=== PATIENT | female | born 1955 | race Caucasian/White ===

== ENCOUNTER → 2016-03-29 | Day surgery (SDC) | payer MEDICARE ==
[~2016-03-29] MED LIST: LIDOCAINE 2% JELLY 5 ML TUBE ONE
== END ==
LOC: END 07:25
PROVIDERS: ATTEND Surgery
PROC: 4A0B7BZ Measurement of Gastrointestinal Pressure, Via Natural or Artificial Opening (ICD-10-PCS; principal; 2016-03-29)
DX: K21.9 Gastro-esophageal reflux disease without esophagitis (principal)
CPT/HCPCS: 91010

== ENCOUNTER → 2017-03-18 | Outpatient (CLI) | payer MEDICARE ==
--- NOTE | 2017-03-18 16:12 | RADIOLOGY REPORT (SQ) ---
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 TECHNIQUE: CT scan of the chest performed using helical scanning technique with dynamic intravenous contrast injection. Images reviewed with lung, soft tissue and bone windows. Reconstructed coronal and sagittal MPR images reviewed. All images stored on PACS. All CT scanners at this facility use dose modulation, iterative reconstruction, and/or weight based d osing when appropriate to reduce radiation dose to as low as reasonably achievable (ALARA). [facility]: Dose Right [facility]: CareDose [facility]: Dose Right [facility]: Teradose 4D [facility]: [employer] CONTRAST TYPE AND DOSE: See separate report. RENAL FUNCTION: Creatinine 0.9 RADIATION DOSE: . LIMITATIONS: None. FINDINGS: LUNGS AND PLEURA: Centrilobular emphysema. 4 mm nodule in the right upper lobe image 58. Smaller nodule in the left lower lobe image 98. Dependent subsegmental mosaic attenuation in both l ower lobes. No effusions. HILAR AND MEDIASTINAL STRUCTURES: No identified masses or abnormal nodes. HEART AND VASCULAR STRUCTURES: No aneurysm or dissection. No central pulmonary emboli. No pericardi al effusion. HARDWARE: None in the chest. UPPER ABDOMEN: See separate report of the CT of the abdomen. THYROID AND OTHER SOFT TISSUES: No masses. No adenopathy. BONES: No significant finding. OTHER: No other significant finding. IMPRESSION: Less than 6 mm pulmonary nodules. TECHNICAL DOCUMENTATION: JOB ID: [id number] Quality ID # 436: Final reports with documentation of one or more dose reduction techniques (e.g., Au tomated exposure control, adjustment of the mA and/or kV according to patient size, use of iterative reconstruction technique) 2010 [employer]- All Rights Reserved
--- NOTE | 2017-03-18 16:22 | RADIOLOGY REPORT (SQ) ---
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 2 PELVIC AND PERINEAL PAIN COMPARISON: None. TECHNIQUE: CT scan of the abdomen and pelvis performed using helical scanning technique with dynamic intravenous contrast injection. No oral contrast. Images reviewed with lung, soft tissue, and bone windows. Reconstructed coronal and sagittal MPR images reviewed. Delayed images for evaluation of the urinary system also acquired. All images stored on PACS. All CT scanners at this facility use dose modulation, iterative reconstruction, and/or weight based d osing when appropriate to reduce radiation dose to as low as reasonably achievable (ALARA). [facility]: Dose Right [facility]: CareDose [facility]: Dose Right [facility]: Teradose 4D [facility]: [employer] CONTRAST TYPE AND DOSE: contrast/concentration: Isovue 370.00 mg/ml; Total Contrast Delivered: 52.0 ml; Total Saline Delivered: 65.0 ml RENAL FUNCTION: Creatinine 0.9 RADIATION DOSE: CT Rad equipment meets quality standard of care and radiation dose reduction techniq ues were employed. CTDIvol: 4.4 - 4.5 mGy. DLP: 819 mGy-cm.. LIMITATIONS: Artifact from clips GE junction. FINDINGS: LOWER CHEST: See separate report of the CT of the chest. LIVER: Normal size. No masses. No dilated ducts. SPLEEN: Normal size. No focal lesions. PANCREAS: No masses. No significant calcifications. No adjacent inflammation or peripancreatic fluid collections. Pancreatic duct not dilated. GALLBLADDER: No identified stones by CT criteria. No inflammatory changes to suggest cholecystitis. ADRENAL GLANDS: No significant masses or asymmetry. RIGHT KIDNEY AND URETER: No solid masses. No significant calcifications. No hydronephrosis or hyd roureter. LEFT KIDNEY AND URETER: No solid masses. No significant calcifications. No hydronephrosis or hydr oureter. AORTA AND VESSELS: No aneurysm. No dissection. Renal arteries, SMA, celiac without stenosis. RETROPERITONEUM: No retroperitoneal adenopathy, hemorrhage or masses. BOWEL AND PERITONEAL CAVITY: No masses or inflammatory changes. No free fluid or peritoneal masses. APPENDIX: Not visualized. PELVIS: Trace of free fluid. No adenopathy. ABDOMINAL WALL: No masses. No hernias. BONES: No acute findings. OTHER: No other significant finding. IMPRESSION: No evidence of metastatic disease. TECHNICAL DOCUMENTATION: JOB ID: [id number] Quality ID # 436: Final reports with documentation of one or more dose reduction techniques (e.g., Au tomated exposure control, adjustment of the mA and/or kV according to patient size, use of iterative reconstruction technique) 2010 [employer]- All Rights Reserved
== END ==
LOC: RAD 14:56
PROVIDERS: ATTEND Internal Medicine
DX: C10.9 Malignant neoplasm of oropharynx, unspecified (principal); R10.2 Pelvic and perineal pain; C76.0 Malignant neoplasm of head, face and neck
CPT/HCPCS: 71260; 74177; 82565

== ENCOUNTER → 2017-03-26 | Outpatient (CLI) | payer MEDICARE ==
--- NOTE | 2017-03-26 16:50 | RADIOLOGY REPORT (SQ) ---
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 TECHNIQUE: Post IV contrasted scanning from skull base through lung apices with review of bone, soft tissue and lung windows. Reconstructed coronal and sagittal MPR images reviewed. All images stored on PACS. All CT scanners at this facility use dose modulation, iterative reconstruction, and/or weight based d osing when appropriate to reduce radiation dose to as low as reasonably achievable (ALARA). [facility]: Dose Right [facility]: CareDose [facility]: Dose Right [facility]: Teradose 4D [facility]: [email or web address] CONTRAST TYPE AND DOSE: contrast/concentration: Isovue 370.00 mg/ml; Total Contrast Delivered: 75.0 ml; Total Saline Delivered: 55.0 ml RENAL FUNCTION: Creatinine 0.9 RADIATION DOSE: 12.6 mGy . LIMITATIONS: None. FINDINGS: SKULL BASE: Intact. Inferior brain parenchyma in the field of view, [place] unre markable. MAJOR SALIVARY GLANDS: No solid or cystic masses. No inflammatory changes. LYMPHADENOPATHY: No adenopathy. MUCOSAL MASSES OR ASYMMETRY: No mucosal masses or asymmetry LARYNX/CORDS: There is diffuse thickening of the epiglottis and aryepiglottic folds along the supragl ottic larynx best shown on axial images 46-53, and sagittal images 39-43.. VASCULAR STRUCTURES: The major vessels are patent.Less than 50% stenosis bilateral proximal internal carotids due to calcific placque at the bifurcations LUNG APICES: Clear. Obstructive lung disease at the apices BONES: Degenerative disc disease at C5-6 with mild central canal stenosis and high-grade bilateral fo raminal narrowing THYROID: Normal size. No masses. PARANASAL SINUSES: Opacified right frontal sinus with mucoperiosteal thickening, question chronic rig ht frontal sinus inflammatory changes. OTHER: No other significant finding. IMPRESSION: Probable post radiation therapy change in the supraglottic laryngeal structures. TECHNICAL DOCUMENTATION: JOB ID: [id number] Quality ID # 436: Final reports with documentation of one or more dose reduction techniques (e.g., Au tomated exposure control, adjustment of the mA and/or kV according to patient size, use of iterative reconstruction technique) 2010 [employer]- All Rights Reserved
== END ==
LOC: RAD 13:25
PROVIDERS: ATTEND Internal Medicine
DX: C76.0 Malignant neoplasm of head, face and neck (principal)
CPT/HCPCS: 70491

== ENCOUNTER → 2017-04-02 | Outpatient (CLI) | payer MEDICARE ==
--- NOTE | 2017-04-03 16:45 | RADIOLOGY REPORT (SQ) ---
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 TECHNIQUE: Blood glucose level was verified. Above dose of FDG was injected intravenously. 2-D seg mented attenuation correction images were obtained from the base of the skull to the midthighs. Nonc ontrast CT images were obtained for attenuation correction and fusion with emission images. CT image s were performed without oral or intravenous contrast and are not sensitive for parenchymal lesions. A series of overlapping emission PET images were obtained. Images reviewed and manipulated at [facility] work station by the radiologist. Images stored on PACS. LIMITATIONS: None. FINDINGS: HEAD AND NECK: Diffuse abnormal markedly increased uptake is present throughout the tongue base left greater than right, with SUV of 15.8. Thickening of the mucosal surface of the tongue bas e extends into the vallecula and into the base of the epiglottis. In the supraglottic larynx along the right piriform recess region, bandlike increased uptake is prese nt worrisome for mucosal neoplasm with SUV of 4.9. No metabolically active cervical lymph nodes. No airway compromise. CHEST: A right axillary 1.4 x 0.9 cm lymph node is present on axial image 80, with SUV of 3.6. No left axillary adenopathy. No mediastinal adenopathy. There are multifocal infiltrates involving the posterior right upper lobe, superior segment right low er lobe, and superior segment left lower lobe with SUV ranging from 1.6 to 2.1. Given the laryngeal and tongue base findings, this could represent aspiration pneumonia. Less than 4 mm probable noncalcified granulomas are present in the right lung near the minor fissure image 94, and in the left posterior costophrenic sulcus image 113. These are too small to characteri ze accurately with PET-CT. ABDOMEN AND PELVIS: No areas of abnormal metabolic activity in the abdomen or pelvis. Expected physi ologic activity is present in the genitourinary system and bowel. PROXIMAL LOWER EXTREMITIES: No areas of abnormal metabolic activity in the soft tissues of the lower extremities. BONES: No abnormal metabolic activity in the visualized skeleton. ADDITIONAL CT FINDINGS: Obstructive lung disease. Radiopaque metallic prosthesis at the GE junction with adjacent surgical anisa from reflux surgery. Opacified right frontal sinus without increased metabolic activity. OTHER: Liver background activity 1.9 SUV. 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 Abnormal increased uptake along the right piriform recess region worrisome for tumor. Hypermetabolic small right axillary lymph node Multifocal pulmonary infiltrates, given tongue base findings worrisome for aspiration pneumonia. TECHNICAL DOCUMENTATION: JOB ID: [id number] [employer]- All Rights Reserved
== END ==
LOC: RAD 16:31
PROVIDERS: ATTEND Internal Medicine
DX: C10.9 Malignant neoplasm of oropharynx, unspecified (principal)
CPT/HCPCS: 78815; A9552

== ENCOUNTER → 2017-04-10 | Day surgery (SDC) | payer MEDICARE ==
[~2017-04-10] MED LIST changes: +LIDOCAINE 1% INJ-PF (10 MG/ML) 30 ML SDV ONE; -LIDOCAINE 2% JELLY 5 ML TUBE ONE
--- NOTE | 2017-04-10 11:00 | RADIOLOGY REPORT (SQ) ---
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 The patient was scanned and the lymph node of interest in the right axilla was localized. This corre lates with the area of concern on prior imaging studies. This area was targeted for ultrasound-guided core biopsy. After sterile skin prep and 3.5 mL local lidocaine 1% for skin and deep tissue anesthesia, a 14 gauge coaxial core biopsy needle was used to obtain several cores of tissue from the lesion. Under ultras ound guidance, a ribbon clip was placed in the areas sampled. There were no immediate post-procedure complications. Samples were given to Narcisa from cytology. Pathology is pending at the time of dictation LIMITATIONS: None. FINDINGS: Ultrasound guided right axillary lymph node biopsy as described above. Pathology is pending IMPRESSION: ULTRASOUND-GUIDED CORE BIOPSY OF THE RIGHT AXILLARY LYMPH NODE WITH LOCAL ANESTHESIA. P OST BIOPSY CLIP PLACEMENT COMMENT: COMMUNICATION: Results are pending Patient medication list reviewed: Yes- Quality ID# 130:Eligible professional attests to documenting i n the medical record they obtained, updated, or reviewed the patient's current medications. TECHNICAL DOCUMENTATION: JOB ID: [id number] [employer]- All Rights Reserved
== END ==
LOC: RAD 08:57
PROVIDERS: ATTEND Internal Medicine
PROC: 07B53ZX Excision of Right Axillary Lymphatic, Percutaneous Approach, Diagnostic (ICD-10-PCS; principal; 2017-04-10)
DX: C10.9 Malignant neoplasm of oropharynx, unspecified (principal)
CPT/HCPCS: 88185 ×15; 88184; 88233; 88262; 88305 ×2; 88312 ×2; 38505; J3490

== ENCOUNTER 2017-04-26 12:00 | Day surgery (SDC) | payer MEDICARE ==
[2017-04-22 11:08] LABS: HEMATOCRIT 34.2 % (36.0-47.0); HEMOGLOBIN 11.8 g/dL (12.0-15.5); MEAN CORPUSCULAR HEMOGLOBIN 30.5 pg (27.0-33.4); MEAN CORPUSCULAR HGB CONC 34.4 g/dL (32.0-36.0); MEAN CORPUSCULAR VOLUME 89 fl (80-97); PLATELET COUNT 215 10^3/uL (150-450); RED BLOOD COUNT 3.86 10^6/uL (3.72-5.28); WHITE BLOOD COUNT 4.2 10^3/uL (4.0-10.5)
[2017-04-22 11:42] LABS: ANION GAP 10 (5-19); BLOOD UREA NITROGEN 9 mg/dL (7-20); CALCIUM 9.6 mg/dL (8.4-10.2); CARBON DIOXIDE 32 mmol/L (22-30); CHLORIDE 103 mmol/L (98-107); GLUCOSE 88 mg/dL (75-110); POTASSIUM 3.8 mmol/L (3.6-5.0); SODIUM 144.8 mmol/L (137-145)
--- NOTE | 2017-04-22 13:36 | EKG REPORT ---
SEVERITY:- NORMAL ECG - SINUS RHYTHM : Confirmed by: Nilesh Barry MD 22-Apr-2017 13:35:14
--- NOTE | 2017-04-22 15:51 | RADIOLOGY REPORT (SQ) ---
EXAM DESCRIPTION: CHEST PA/LATERAL COMPLETED DATE/TIME: 04/22/2017 12:07 pm REASON FOR STUDY: PRE OP COMPARISON: PET-CT 04/02/2017 CT abdomen pelvis 03/18/2017 EXAM PARAMETERS: NUMBER OF VIEWS: two views TECHNIQUE: Digital Frontal and Lateral radiographic views of the chest acquired. RADIATION DOSE: NA LIMITATIONS: none FINDINGS: LUNGS AND PLEURA: No opacities, masses or pneumothorax. No pleural effusion. MEDIASTINUM AND HILAR STRUCTURES: No masses or contour abnormalities. HEART AND VASCULAR STRUCTURES: Heart normal size. No evidence for failure. BONES: Osteoporotic. No acute fracture HARDWARE: Radiopaque prosthesis at the GE junction. OTHER: No other significant finding. IMPRESSION: No acute changes TECHNICAL DOCUMENTATION: JOB ID: [id number] [employer]- All Rights Reserved
[~2017-04-26 12:00] MED LIST changes: +CEFAZOLIN 1 GM/D5W RTU 1 GM/50 ML RTUPB IV PRN; +LACTATED RINGERS 1000 ML IV PRN; +LIDOCAINE 0.5% INJ-PF (5 MG/ML) 50 ML SDV SUBCUT PRN; -LIDOCAINE 1% INJ-PF (10 MG/ML) 30 ML SDV ONE
[2017-04-26] MEDS ORDERED: OXYMETAZOLINE HCL 0.05% NASAL SPRAY 15 ML BOTTLE ONE (14:39)
[2017-04-26] MEDS ORDERED: DEXAMETHASONE SOD PHOSPHATE INJ 4 MG/1 ML VIAL ONE (15:28)
[2017-04-26] MEDS ORDERED: SUCCINYLCHOLINE CHLORIDE INJ 200 MG/10 ML VIAL ONE (15:28)
[2017-04-26] MEDS ORDERED: ONDANSETRON HCL INJ/PF 4 MG/2 ML SDV ONE (15:28)
[2017-04-26] MEDS ORDERED: MIDAZOLAM 2 MG/2 ML INJ ONE ×2 (16:17→16:32)
[2017-04-26] MEDS ORDERED: FENTANYL CITRATE INJ/PF 100 MCG/2 ML AMPUL ONE ×2 (16:32→16:33)
[2017-04-26] MEDS ORDERED: PROPOFOL INJ 200 MG/20 ML VIAL IV ONE (16:32)
[2017-04-26] MEDS ORDERED: ESMOLOL HCL INJ/PF 100 MG/10 ML SDV IV ONE (17:04)
[2017-04-26] MEDS ORDERED: RINGERS SOLUTION,LACTATED 1,000 ML IV PRN (17:24)
[2017-04-26] MEDS ORDERED: FENTANYL CITRATE INJ/PF 100 MCG/2 ML AMPUL IV PRN ×3 (17:26)
[2017-04-26] MEDS ORDERED: DIPHENHYDRAMINE HCL 50 MG/ML VIAL IV PRN (17:26)
[2017-04-26] MEDS ORDERED: PROMETHAZINE HCL INJ 25 MG/1 ML VIAL IV PRN (17:26)
[2017-04-26] MEDS ORDERED: ONDANSETRON HCL INJ/PF 4 MG/2 ML SDV IV PRN (17:27)
[2017-04-26] MEDS: FENTANYL CITRATE INJ/PF 100 MCG/2 ML AMPUL ONE ×2 (17:40→17:45)
[2017-04-26 19:30] VITALS: BP 150/90
--- NOTE | 2017-04-29 20:49 | OPERATIVE REPORT E ---
Operative Report NAME: MIGUEL CALLAHAN : 1955 AGE: 61Y DATE OF SURGERY: 04/26/2017 ROOM: PREOPERATIVE DIAGNOSES: 1. BASE OF TONGUE MASS, RULE OUT CARCINOMA. 2. HISTORY OF STAGE 4A HEAD AND NECK CANCER. POSTOPERATIVE DIAGNOSES: 1. BASE OF TONGUE MASS, RULE OUT CARCINOMA. 2. HISTORY OF STAGE 4A HEAD AND NECK CANCER. OPERATION: Rigid laryngoscopy with directed biopsies. SURGEON: LA MONTAGUE D.O. ANESTHESIA: General endotracheal tube. ANESTHESIA STAFF: PATRICIA Martinez. ESTIMATED BLOOD LOSS: Less than 5 mL. COMPLICATIONS: None. DRAINS: None. SPONGE COUNT: Verified. MATERIALS FORWARDED SPECIMEN: Numerous biopsies taken from the base of tongue/vallecula area. FINDINGS: Base of tongue/vallecula with exophytic friable mass noted, which correlated with clinic endoscopy and CT and PET imaging. INDICATIONS: This is a 61-year-old white female with history of stage 4A head and neck cancer. The patient is approximately 5 years out from completion of her initial therapy. The patient had been complaining of persistent throat pain, despite undergoing a LINX procedure for GERD. The LINX procedure significantly improved her GERD; however, her throat pain has persisted. The patient was referred for ENT evaluation. On clinic endoscopy, there was a base of tongue/hypopharyngeal mass noted that was concerning for a cancer recurrence. The case was discussed with [facility] Oncology staff, with arrangements made for PET imaging. This PET imaging was with results concerning for a base of tongue/hypopharyngeal recurrence. Recommendation and plan was to proceed to the main operating room for rigid laryngoscopy with directed biopsies. The procedure and all of its risks and complications were discussed in detail with the patient. She voiced an understanding of the described surgical plan, agreed to proceed, and consent was obtained. PROCEDURE: The patient was taken to the main operating room and placed on the operating room table in the supine position. Appropriate monitors were placed. Using mask and IV access, general anesthesia was induced. The patient was next transorally intubated without difficulty. At this point, the patient was positioned and prepped for rigid laryngoscopy. A rigid laryngoscope was passed, with the area of concern easily identified. Numerous biopsies were taken. The pathologist confirmed that adequate tissue had been acquired. At this point, 2 Afrin-soaked neuro patties were placed at the area of the biopsies. The strings were secured outside the patient's mouth. At this point, the patient was returned to the Anesthesia staff and was allowed to emerge from general anesthesia. Prior to extubation, the 2 Afrin-soaked neuro patties were removed without difficulty. The patient was then extubated in the main operating room without difficulty, and was then transported to the post anesthesia recovery unit in stable condition. There were no complications. DICTATING PHYSICIAN: LA MONTAGUE D.O. [id number] PHY#: [id number] ID: [id number] JOB#: [id number] ACCT: [id number] cc:LA MONTAGUE D.O. >
== END 2017-04-26 19:25 | disposition home or self-care (01) ==
LOC: OROUT 12:00
PROVIDERS: ATTEND Otolaryngology
PROC: 0CBM8ZX Excision of Pharynx, Via Natural or Artificial Opening Endoscopic, Diagnostic (ICD-10-PCS; principal; 2017-04-26 13:30)
DX: C13.9 Malignant neoplasm of hypopharynx, unspecified (principal); C10.9 Malignant neoplasm of oropharynx, unspecified; C76.0 Malignant neoplasm of head, face and neck; I10 Essential (primary) hypertension; K21.9 Gastro-esophageal reflux disease without esophagitis; E07.9 Disorder of thyroid, unspecified; Z79.899 Other long term (current) drug therapy; Z87.891 Personal history of nicotine dependence; Z88.5 Allergy status to narcotic agent; Z88.2 Allergy status to sulfonamides
CPT/HCPCS: 93005; 36415; 85027; 80048; 88305 ×2; 88331 ×2; 71046; 93010; 31535; J2250; J1100; J3010; J3490 ×2; J0330; J2405; J2704; 320; J0690

== ENCOUNTER 2017-07-11 20:20 | Emergency (ER) | payer MEDICARE ==
[2017-07-11 21:35] LABS: INTERNATIONAL RATION (INR) 0.91; PROTHROMBIN TIME 12.7 SEC (11.4-15.4)
[2017-07-11 21:42] LABS: ANION GAP 14 (5-19); BLOOD UREA NITROGEN 35 mg/dL (7-20); CALCIUM 9.5 mg/dL (8.4-10.2); CARBON DIOXIDE 30 mmol/L (22-30); CHLORIDE 102 mmol/L (98-107); GLUCOSE 70 mg/dL (75-110); POTASSIUM 4.2 mmol/L (3.6-5.0); SODIUM 146.4 mmol/L (137-145)
[2017-07-11 21:45] LABS: SALICYLATE < 1.0 mg/dL (2.0-20.0)
--- NOTE | 2017-07-11 21:52 | RADIOLOGY REPORT (SQ) ---
EXAM DESCRIPTION: CT HEAD WITHOUT COMPLETED DATE/TIME: 07/11/2017 9:29 pm REASON FOR STUDY: fall COMPARISON: None. TECHNIQUE: Axial images acquired through the brain without intravenous contrast. Images reviewed wi th bone, brain and subdural windows. Additional sagittal and coronal reconstructions were generated. Images stored on PACS. All CT scanners at this facility use dose modulation, iterative reconstruction, and/or weight based d osing when appropriate to reduce radiation dose to as low as reasonably achievable (ALARA). [facility]: Dose Right [facility]: CareDose [facility]: Dose Right [facility]: Teradose 4D [facility]: [employer] RADIATION DOSE: CT Rad equipment meets quality standard of care and radiation dose reduction techniq ues were employed. CTDIvol: 53.2 mGy. DLP: 1017 mGy-cm. mGy. LIMITATIONS: None. FINDINGS: VENTRICLES: Normal size and contour. CEREBRUM: No masses. No hemorrhage. No midline shift. No evidence for acute infarction. Normal gra y/white matter differentiation. No areas of low density in the white matter. CEREBELLUM: No masses. No hemorrhage. No alteration of density. No evidence for acute infarction. EXTRAAXIAL SPACES: No fluid collections. No masses. ORBITS AND GLOBE: No intra- or extraconal masses. Normal contour of globe without masses. CALVARIUM: No fracture. PARANASAL SINUSES: No fluid or mucosal thickening. SOFT TISSUES: No mass or hematoma. OTHER: No other significant finding. IMPRESSION: NORMAL BRAIN CT WITHOUT CONTRAST. EVIDENCE OF ACUTE STROKE: NO. COMMENT: Quality ID # 436: Final reports with documentation of one or more dose reduction techniques (e.g., Automated exposure control, adjustment of the mA and/or kV according to patient size, use of iterative reconstruction technique) TECHNICAL DOCUMENTATION: JOB ID: [id number] [employer]- All Rights Reserved Reading location - IP/workstation name: [email or web address]
--- NOTE | 2017-07-11 21:58 | RADIOLOGY REPORT (SQ) ---
EXAM DESCRIPTION: CT CERVICAL SPINE WITHOUT COMPLETED DATE/TIME: 07/11/2017 9:28 pm REASON FOR STUDY: fall COMPARISON: CT of the neck 03/26/2017 TECHNIQUE: Axial images acquired through the cervical spine without intravenous contrast. Images re viewed with lung, soft tissue and bone windows. Reconstructed coronal and sagittal MPR images review ed. Images stored on PACS. All CT scanners at this facility use dose modulation, iterative reconstruction, and/or weight based d osing when appropriate to reduce radiation dose to as low as reasonably achievable (ALARA). [facility]: Dose Right [facility]: CareDose [facility]: Dose Right [facility]: Teradose 4D [facility]: [employer] RADIATION DOSE: CT Rad equipment meets quality standard of care and radiation dose reduction techniq ues were employed. CTDIvol: 9.7 mGy. DLP: 190 mGy-cm. mGy. LIMITATIONS: None. FINDINGS: ALIGNMENT: Reversal of the normal cervical lordosis in the midcervical spine. MINERALIZATION: Normal. VERTEBRAL BODIES: No fractures or dislocation. DISCS: Disc spaces are narrowed and C4-5, C5-6 and C6-7. Anterior and posterior osteophytes are pres ent. FACETS, LATERAL MASSES, POSTERIOR ELEMENTS: No fractures. No dislocation. No acute findings. HARDWARE: None in the spine. VISUALIZED RIBS: No fractures. LUNG APICES AND SOFT TISSUES: Centrilobular emphysematous changes are present in the apices. Base as ymmetric soft tissue density in the left side of the pharynx. OTHER: No other significant finding. IMPRESSION: 1. Degenerative disc disease and spondylosis in the cervical spine with no acute osseou s abnormality. 2. Asymmetry in the pharynx. Patient has a history of oropharyngeal cancer. 3. Pulmonary emphysema. TECHNICAL DOCUMENTATION: JOB ID: [id number] Quality ID # 436: Final reports with documentation of one or more dose reduction techniques (e.g., Au tomated exposure control, adjustment of the mA and/or kV according to patient size, use of iterative reconstruction technique) 2010 [employer]- All Rights Reserved Reading location - IP/workstation name: [email or web address]
[2017-07-11 22:13] LABS: ALANINE AMINOTRANSFERASE 25 U/L (9-52); ALBUMIN 3.6 g/dL (3.5-5.0); ALKALINE PHOSPHATASE 95 U/L (38-126); ASPARTATE AMINO TRANSFERASE 30 U/L (14-36); BILIRUBIN,DIRECT 0.2 mg/dL (0.0-0.4); BILIRUBIN,TOTAL 0.2 mg/dL (0.2-1.3); TOTAL PROTEIN 6.4 g/dL (6.3-8.2)
[2017-07-11 22:15] LABS: ACETAMINOPHEN < 10 ug/mL (10-30)
--- NOTE | 2017-07-11 23:15 | ER Document Report ---
ED General - General Chief Complaint: Possible Overdose Stated Complaint: POSSIBLE OVERDOSE Time Seen by Provider: 07/11/17 20:26 Mode of Arrival: Medic Information source: Patient Notes: Patient is a 61-year-old female who presents with complaint of possible overdose. Patient reports that she has been trying to wean herself off of morphine that she was taking for her head and neck cancer. Patient states that today she took a bottle and a half of children's ibuprofen as well as some cannabis oil through her PEG tube. Patient reports that she just does not like the way the morphine makes her feel. Patient also reports that earlier this afternoon she did fall and she tripped over a small rug in her house. Patient reports low back pain and does report hitting her head although denies any loss of consciousness. Patient is alert and oriented, somewhat fidgety, denies any suicidal intent. Her main concern and reason for visit is that she feels a very "high". TRAVEL OUTSIDE OF THE [place] IN LAST 30 DAYS: No - Related Data Allergies/Adverse Reactions: cephalexin [From Keflex] Allergy (Severe, Verified 04/26/17 13:38) C-Difficile reaction codeine Allergy (Severe, Verified 04/26/17 13:38) migraines moxifloxacin [From Avelox] Allergy (Severe, Verified 04/26/17 13:38) C-Difficile reaction Sulfa (Sulfonamide Antibiotics) Allergy (Severe, Verified 04/26/17 13:38) itching sulfamethoxazole [From Bactrim] Allergy (Severe, Verified 04/26/17 13:38) itching trimethoprim [From Bactrim] Allergy (Severe, Verified 04/26/17 13:38) itching Penicillins Allergy (Unknown, Verified 04/26/17 13:38) unknown Past Medical History - General Information source: Patient - Social History Smoking Status: Former Smoker Chew tobacco use (# tins/day): No Frequency of alcohol use: prior Drug Abuse: Marijuana Family History: Reviewed & Not Pertinent Patient has suicidal ideation: No Patient has homicidal ideation: No EENT Medical History: Reports: Throat - Cancer, Other - History of tracheostomy Renal/ Medical History: Denies: Hx Peritoneal Dialysis Review of Systems - Review of Systems Constitutional: See HPI EENT: No symptoms reported Cardiovascular: No symptoms reported Respiratory: No symptoms reported Gastrointestinal: No symptoms reported Genitourinary: No symptoms reported Female Genitourinary: No symptoms reported Musculoskeletal: No symptoms reported Skin: No symptoms reported Hematologic/Lymphatic: No symptoms reported Neurological/Psychological: No symptoms reported Physical Exam - Vital signs Vitals: Resp Pulse Ox 23 H 98 07/11/17 20:29 07/11/17 20:29 - Notes Notes: PHYSICAL EXAMINATION: GENERAL: Well-appearing, well-nourished and in no acute distress. HEAD: Atraumatic, normocephalic. EYES: Pupils equal round and reactive to light, extraocular movements intact, conjunctiva are normal. ENT: Nares patent, oropharynx clear without exudates. Moist mucous membranes. NECK: Normal range of motion, supple without lymphadenopathy, healing surgical incisions, tracheostomy site. LUNGS: Breath sounds clear to auscultation bilaterally and equal. No wheezes rales or rhonchi. HEART: Regular rate and rhythm without murmurs ABDOMEN: Soft, nontender, nondistended abdomen. No guarding, no rebound. No masses appreciated. Female : deferred Musculoskeletal: Normal range of motion, no pitting or edema. No cyanosis. NEUROLOGICAL: Cranial nerves grossly intact. Normal speech, normal gait. Normal sensory, motor exams PSYCH: Normal mood, normal affect. SKIN: Warm, Dry, normal turgor, no rashes or lesions noted. Course - Re-evaluation Re-evalutation: 61-year-old female presents with complaint of possible overdose on ibuprofen and cannabis oil. Patient reports that she took approximately 4 g of liquid ibuprofen through her peg tube. and also made homemade cannabis oil which she looked through her PEG tube. Patient reports that she took these as she is trying to wean herself off of her morphine. Patient reports the last time she took morphine was about 1 week ago. Patient had a recent neck surgery done at [facility]. Patient reports that this evening she did fall down and hit her head however her only complaint is low back pain and feeling high. Contacted poison control who recommends to check a chemistry as overdose of ibuprofen may result in metabolic acidosis. Can give benzos if needed to control symptoms. Patient's vital signs have remained stable during her visit. Patient feels a lot less fidgety some time has passed. Patient's chemistry is unremarkable with no signs of acidosis. Urinalysis with small leukocyte esterase however patient denies any urinary symptoms such as dysuria or frequency. Patient's urine drug screen shows marijuana and opiates. Poison control called back and felt that patient is safe for discharge at this time as patient states she feels well. Reexamined patient and spoke with patient about discharging home. Patient is medically cleared at this time. Patient now stating she does not feel safe to go home. Patient reports that her medical care has become too complex for her to take care of. Patient reports that she does have home health in place any returned case inspector however she reports that home health only comes approximately 2 times a week. Patient states that if she is discharged home she may fall again and her is not capable of taking care of her as he has his own health issues. Patient denied any domestic violence in the home however reports that her significant other does drink heavily and she states that she fears for her safety at this point. Patient does not meet any admission criteria so patient will be held until morning for consult with returned case inspector. - Vital Signs Vital signs: Temp Pulse Resp BP Pulse Ox 17 142/60 H 95 07/12/17 05:01 07/12/17 05:00 07/12/17 05:01 - Laboratory Result Diagrams: 07/11/17 21:10 Laboratory results interpreted by me: 07/11/17 07/11/17 07/12/17 21:10 21:10 00:05 Sodium 146.4 H BUN 35 H Est GFR (Non-Af Amer) 56 L Glucose 70 L Ur Leukocyte Esterase SMALL H Urine Ascorbic Acid 40 H Salicylates < 1.0 L Acetaminophen < 10 L
[2017-07-12 00:49] LABS: APPEARANCE,URINE SLIGHTLY-CLOUDY; BILIRUBIN,URINE NEGATIVE (NEGATIVE); COLOR,URINE YELLOW; GLUCOSE, URINE NEGATIVE (NEGATIVE); KETONES,URINE NEGATIVE (NEGATIVE); LEUKOCYTE ESTERASE,URINE SMALL (NEGATIVE); NITRITE,URINE NEGATIVE (NEGATIVE); PROTEIN,URINE NEGATIVE (NEGATIVE); URINE SPECIFIC GRAVITY 1.014; UROBILINOGEN,URINE NEGATIVE mg/dL (<2.0)
[2017-07-12 01:08] LABS: URINE AMPHETAMINES SCREEN NEGATIVE; URINE BARBITURATES SCREEN NEGATIVE; URINE BENZODIAZEPINES SCREEN NEGATIVE; URINE COCAINE SCREEN NEGATIVE; URINE MARIJUANA (THC) SCREEN UNCONFIRMED POSITIVE; URINE METHADONE SCREEN NEGATIVE; URINE PHENCYCLIDINE SCREEN NEGATIVE
--- NOTE | 2017-07-12 07:51 | EKG REPORT ---
SEVERITY:- BORDERLINE ECG - SINUS RHYTHM : Confirmed by: Nilesh Barry MD 12-Jul-2017 07:49:45
[2017-07-12 11:32] LABS: ABSOLUTE EOSINOPHILS # (AUTO) 0.2 10^3/uL (0.0-0.6); ABSOLUTE LYMPHOCYTES (AUTO) 0.6 10^3/uL (0.5-4.7); ABSOLUTE MONOCYTES (AUTO) 0.8 10^3/uL (0.1-1.4); ABSOLUTE NEUT (AUTO) 4.6 10^3/uL (1.7-8.2); BASOPHILS % (AUTO) 0.6 % (0-2); EOSINOPHILS % (AUTO) 2.4 % (0-6); HEMATOCRIT 28.8 % (36.0-47.0); HEMOGLOBIN 9.8 g/dL (12.0-15.5); LYMPHOCYTES % (AUTO) 10.3 % (13-45); MEAN CORPUSCULAR HEMOGLOBIN 29.5 pg (27.0-33.4); MEAN CORPUSCULAR HGB CONC 33.9 g/dL (32.0-36.0); MEAN CORPUSCULAR VOLUME 87 fl (80-97); MONOCYTES % (AUTO) 12.9 % (3-13); PLATELET COUNT 382 10^3/uL (150-450); RED BLOOD COUNT 3.31 10^6/uL (3.72-5.28); RED CELL DISTRIBUTION WIDTH 15.4 % (11.5-14.0); SEGMENTED NEUTROPHILS % (AUTO) 73.8 % (42-78); TOTAL CELLS COUNTED % (AUTO) 100 %; WHITE BLOOD COUNT 6.2 10^3/uL (4.0-10.5)
[2017-07-12 14:47] VITALS: BP 155/89
== END 2017-07-12 15:00 | disposition home or self-care (01) ==
LOC: ER 20:20
DX: T39.311A Poisoning by propionic acid derivatives, accidental (unintentional), initial encounter (principal); S09.90XA Unspecified injury of head, initial encounter; M54.5 Low back pain; W01.10XA Fall on same level from slipping, tripping and stumbling with subsequent striking against unspecified object, initial encounter; Z93.1 Gastrostomy status; Z88.6 Allergy status to analgesic agent; Z88.2 Allergy status to sulfonamides; Y92.009 Unspecified place in unspecified non-institutional (private) residence as the place of occurrence of the external cause; Z88.3 Allergy status to other anti-infective agents; Z87.891 Personal history of nicotine dependence; C76.0 Malignant neoplasm of head, face and neck; C79.89 Secondary malignant neoplasm of other specified sites
CPT/HCPCS: 93005; 99285; 36415; 87086; 80307 ×3; 85025; 85610; 80076; 80048; 81001; 70450; 72125; 93010; L0120

== ENCOUNTER → 2017-09-01 | Outpatient (CLI) | payer MEDICARE ==
--- NOTE | 2017-09-02 09:59 | RADIOLOGY REPORT (SQ) ---
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 TECHNIQUE: Blood glucose level was verified. Above dose of FDG was injected intravenously. 2-D seg mented attenuation correction images were obtained from the base of the skull to the midthighs. Nonc ontrast CT images were obtained for attenuation correction and fusion with emission images. CT image s were performed without oral or intravenous contrast and are not sensitive for parenchymal lesions. A series of overlapping emission PET images were obtained. Images reviewed and manipulated at [facility] work station by the radiologist. Images stored on PACS. LIMITATIONS: None. FINDINGS: HEAD AND NECK: Since the prior PET-CT, patient has undergone surgery. There is a reconstr uction with fatty tissue and surgical anisa at the left tongue base. Hypermetabolic recurrent tumor is present with hypermetabolic small foci difficult to measure as foll ows: Along the right tongue muscle at the ventral edge of the reconstruction flap SUV 5.4 Along the right floor of mouth/tongue base just anterior to the hyoid bone SUV of 4 Along the posterior hypopharynx at the arytenoid cartilages diffusely SUV of 4.5 CHEST: A 9 mm nodule is present in the left posterior costophrenic sulcus with SUV of 1.7. This is l arger than on previous PET-CT and chest CT exams and is worrisome for a metastatic lesion. A right axillary lymph node is present, 1.1 x 0.7 cm with SUV 2.2 (was 1.4 x 0.9 cm on 04/02/2017, non metabolic). ABDOMEN AND PELVIS: No areas of abnormal metabolic activity in the abdomen or pelvis. Expected physi ologic activity is present in the genitourinary system and bowel. PROXIMAL LOWER EXTREMITIES: No areas of abnormal metabolic activity in the soft tissues of the lower extremities. BONES: No abnormal metabolic activity in the visualized skeleton. ADDITIONAL CT FINDINGS: Gastrostomy tube. COPD. Reflux surgery with prosthesis at the GE junction. OTHER: Liver background activity 2.2 SUV. Blood pool background activity 1.5 SUV. IMPRESSION: Difficult to measure small foci of increased metabolic activity along the periphery of t he surgical resection site, left tongue base. Increase in size and metabolic activity of a nodule in the left posterior costophrenic sulcus Increase in activity of a right axillary lymph node. TECHNICAL DOCUMENTATION: JOB ID: [id number] [employer]- All Rights Reserved Reading location - IP/workstation name: [email or web address]
== END ==
LOC: RAD 18:33
PROVIDERS: ATTEND Internal Medicine
DX: C10.9 Malignant neoplasm of oropharynx, unspecified (principal)
CPT/HCPCS: 78815; A9552

== ENCOUNTER 2017-09-11 08:57 | Outpatient (CLI) | payer MEDICARE ==
[~2017-09-11 08:57] MED LIST changes: +ACETAMINOPHEN 325 MG TABLET PO PRN; +CARBOPLATIN IV PRN; -CEFAZOLIN 1 GM/D5W RTU 1 GM/50 ML RTUPB IV PRN; +CETUXIMAB IV PRN; +CONTAINER EMPTY IV PRN; +DEXAMETHASONE SOD PHOSPHATE 10 MG in NORMAL SALINE 50 ML IV PRN; +DIPHENHYDRAMINE HCL 50 MG/ML VIAL IV PRN; +FAMOTIDINE/PF 20 MG in NORMAL SALINE 50 ML IV PRN; -LACTATED RINGERS 1000 ML IV PRN; -LIDOCAINE 0.5% INJ-PF (5 MG/ML) 50 ML SDV SUBCUT PRN; +NORMAL SALINE 250 ML IV PRN; +NORMAL SALINE IV PRN; +PACLITAXEL SEMI SYNTHETIC IV PRN; +PALONOSETRON 0.25 MG/5 ML SDV IV PRN
[2017-09-11 09:14] VITALS: BP 124/73
== END 2017-09-11 14:57 | disposition home or self-care (01) ==
LOC: II 08:57 → 5TH 09:14 → II 14:57
PROVIDERS: ATTEND Internal Medicine
PROC: 3E0330M Introduction of Antineoplastic, Monoclonal Antibody, into Peripheral Vein, Percutaneous Approach (ICD-10-PCS; principal; 2017-09-11)
PROC: 3E03305 Introduction of Other Antineoplastic into Peripheral Vein, Percutaneous Approach (ICD-10-PCS; 2017-09-11)
PROC: 3E0333Z Introduction of Anti-inflammatory into Peripheral Vein, Percutaneous Approach (ICD-10-PCS; 2017-09-11)
PROC: 3E033GC Introduction of Other Therapeutic Substance into Peripheral Vein, Percutaneous Approach (ICD-10-PCS; 2017-09-11)
DX: Z51.11 Encounter for antineoplastic chemotherapy (principal); C76.0 Malignant neoplasm of head, face and neck
CPT/HCPCS: 96413; 96415; 96367; 96375; A9270 ×2; J1200; J9045; J7050; J9267; S0028; J1100; J2469; J9055; 96417; J3490

== ENCOUNTER 2017-09-18 07:52 | Outpatient (CLI) | payer MEDICARE ==
[2017-09-18] MEDS ORDERED: FAMOTIDINE/PF 20 MG in NORMAL SALINE 50 ML IV PRN (08:00)
[2017-09-18] MEDS ORDERED: DIPHENHYDRAMINE HCL 50 MG/ML VIAL IV PRN (08:00)
[2017-09-18] MEDS ORDERED: PALONOSETRON 0.25 MG/5 ML SDV IV PRN (08:00)
[2017-09-18] MEDS ORDERED: NORMAL SALINE IV PRN ×2 (08:00)
[2017-09-18] MEDS ORDERED: DEXAMETHASONE SOD PHOSPHATE 10 MG in NORMAL SALINE 50 ML IV PRN (08:00)
[2017-09-18] MEDS ORDERED: CETUXIMAB IV PRN (08:00)
[2017-09-18] MEDS ORDERED: PACLITAXEL SEMI SYNTHETIC IV PRN (08:00)
[2017-09-18] MEDS ORDERED: CARBOPLATIN IV PRN (08:00)
[2017-09-18] MEDS ORDERED: DEXAMETHASONE SOD PHOSPHATE 10 MG in DEXTROSE 5%-WATER 50 ML IV PRN (08:00)
[2017-09-18] MEDS ORDERED: CONTAINER EMPTY IV PRN (08:00)
[2017-09-18 08:11] LABS: ABSOLUTE EOSINOPHILS # (AUTO) 0.1 10^3/uL (0.0-0.6); ABSOLUTE LYMPHOCYTES (AUTO) 0.7 10^3/uL (0.5-4.7); ABSOLUTE MONOCYTES (AUTO) 0.3 10^3/uL (0.1-1.4); ABSOLUTE NEUT (AUTO) 2.1 10^3/uL (1.7-8.2); BASOPHILS % (AUTO) 0.6 % (0-2); EOSINOPHILS % (AUTO) 3.1 % (0-6); HEMATOCRIT 34.7 % (36.0-47.0); LYMPHOCYTES % (AUTO) 20.8 % (13-45); MEAN CORPUSCULAR HGB CONC 34.5 g/dL (32.0-36.0); MEAN CORPUSCULAR VOLUME 93 fl (80-97); MONOCYTES % (AUTO) 9.9 % (3-13); PLATELET COUNT 171 10^3/uL (150-450); RED BLOOD COUNT 3.75 10^6/uL (3.72-5.28); RED CELL DISTRIBUTION WIDTH 14.9 % (11.5-14.0); SEGMENTED NEUTROPHILS % (AUTO) 65.6 % (42-78); TOTAL CELLS COUNTED % (AUTO) 100 %; WHITE BLOOD COUNT 3.2 10^3/uL (4.0-10.5)
[2017-09-18 08:50] VITALS: BP 92/49
[2017-09-18] MEDS: NORMAL SALINE 250 ML IV PRN ×2 (09:09→09:41)
== END 2017-09-18 13:15 | disposition home or self-care (01) ==
LOC: II 07:52 → 5TH 07:55 → II 13:15
PROVIDERS: ATTEND Internal Medicine
PROC: 3E0330M Introduction of Antineoplastic, Monoclonal Antibody, into Peripheral Vein, Percutaneous Approach (ICD-10-PCS; principal; 2017-09-18)
PROC: 3E03305 Introduction of Other Antineoplastic into Peripheral Vein, Percutaneous Approach (ICD-10-PCS; 2017-09-18)
PROC: 3E0333Z Introduction of Anti-inflammatory into Peripheral Vein, Percutaneous Approach (ICD-10-PCS; 2017-09-18)
PROC: 3E033GC Introduction of Other Therapeutic Substance into Peripheral Vein, Percutaneous Approach (ICD-10-PCS; 2017-09-18)
DX: Z51.11 Encounter for antineoplastic chemotherapy (principal); C76.0 Malignant neoplasm of head, face and neck
CPT/HCPCS: 36415; 83735; 85025; 96413; 96367; 96375; 96417; J1200; J9045; A9270; J7050; J9267; S0028; J1100; J2469; J9055; 96415; J3490

== ENCOUNTER 2017-09-25 07:22 | Outpatient (CLI) | payer MEDICARE ==
[~2017-09-25 07:22] MED LIST changes: +DIPHENHYDRAMINE HCL 50 MG in NORMAL SALINE 50 ML IV PRN; -DIPHENHYDRAMINE HCL 50 MG/ML VIAL IV PRN
[2017-09-25 08:01] LABS: ABSOLUTE EOSINOPHILS # (AUTO) 0.1 10^3/uL (0.0-0.6); ABSOLUTE LYMPHOCYTES (AUTO) 0.5 10^3/uL (0.5-4.7); ABSOLUTE MONOCYTES (AUTO) 0.3 10^3/uL (0.1-1.4); ABSOLUTE NEUT (AUTO) 1.9 10^3/uL (1.7-8.2); BASOPHILS % (AUTO) 0.7 % (0-2); EOSINOPHILS % (AUTO) 2.8 % (0-6); HEMATOCRIT 33.2 % (36.0-47.0); HEMOGLOBIN 11.7 g/dL (12.0-15.5); LYMPHOCYTES % (AUTO) 16.3 % (13-45); MEAN CORPUSCULAR HEMOGLOBIN 32.4 pg (27.0-33.4); MEAN CORPUSCULAR HGB CONC 35.4 g/dL (32.0-36.0); MEAN CORPUSCULAR VOLUME 92 fl (80-97); MONOCYTES % (AUTO) 11.3 % (3-13); PLATELET COUNT 196 10^3/uL (150-450); RED BLOOD COUNT 3.62 10^6/uL (3.72-5.28); RED CELL DISTRIBUTION WIDTH 14.6 % (11.5-14.0); SEGMENTED NEUTROPHILS % (AUTO) 68.9 % (42-78); TOTAL CELLS COUNTED % (AUTO) 100 %; WHITE BLOOD COUNT 2.8 10^3/uL (4.0-10.5)
[2017-09-25 08:24] LABS: ALANINE AMINOTRANSFERASE 24 U/L (9-52); ALKALINE PHOSPHATASE 70 U/L (38-126); ANION GAP 8 (5-19); ASPARTATE AMINO TRANSFERASE 25 U/L (14-36); BILIRUBIN,DIRECT 0.2 mg/dL (0.0-0.4); BILIRUBIN,TOTAL 0.4 mg/dL (0.2-1.3); BLOOD UREA NITROGEN 19 mg/dL (7-20); CALCIUM 9.4 mg/dL (8.4-10.2); CARBON DIOXIDE 32 mmol/L (22-30); CHLORIDE 102 mmol/L (98-107); GLUCOSE 84 mg/dL (75-110); POTASSIUM 3.8 mmol/L (3.6-5.0); SODIUM 142.3 mmol/L (137-145)
[2017-09-25 09:49] VITALS: BP 94/60
[2017-09-25] MEDS ORDERED: ACETAMINOPHEN SOLN 325 MG/10.15 ML UDCUP PEG PRN (10:30)
[2017-09-25] MEDS ORDERED: ACETAMINOPHEN SOLN 325 MG/10.15 ML UDCUP ONE (10:32)
[2017-09-25] MEDS: MAGNESIUM SULFATE 1 GM/D5W 100 ML IV SCH ×2 (13:43→14:50)
== END 2017-09-25 16:24 | disposition home or self-care (01) ==
LOC: 5TH 07:22 → II 07:22 → 5TH 07:26 → II 16:24
PROVIDERS: ATTEND Internal Medicine
PROC: 3E0330M Introduction of Antineoplastic, Monoclonal Antibody, into Peripheral Vein, Percutaneous Approach (ICD-10-PCS; principal; 2017-09-25)
PROC: 3E03305 Introduction of Other Antineoplastic into Peripheral Vein, Percutaneous Approach (ICD-10-PCS; 2017-09-25)
PROC: 3E0333Z Introduction of Anti-inflammatory into Peripheral Vein, Percutaneous Approach (ICD-10-PCS; 2017-09-25)
PROC: 3E033GC Introduction of Other Therapeutic Substance into Peripheral Vein, Percutaneous Approach (ICD-10-PCS; 2017-09-25)
DX: Z51.11 Encounter for antineoplastic chemotherapy (principal); C76.0 Malignant neoplasm of head, face and neck; E83.42 Hypomagnesemia
CPT/HCPCS: 36415; 83735; 85025; 80053; 96413; 96366; 96367; 96375; 96417; J1200; J9045; A9270; J3475; J7050; J9267; S0028; J1100; J3490; J2469; J9055; 96415

== ENCOUNTER → 2017-10-11 | Outpatient (CLI) | payer MEDICARE ==
--- NOTE | 2017-10-11 16:00 | RADIOLOGY REPORT (SQ) ---
EXAM DESCRIPTION: CT SOFT TISSUE NECK WITH COMPLETED DATE/TIME: 10/11/2017 2:23 pm REASON FOR STUDY: MALIGNANT NEOPLASM OF HEAD,FACE, AND NECK C76.0 MALIGNANT NEOPLASM OF HEAD, FACE AND NECK COMPARISON: 03/26/2017. TECHNIQUE: Post IV contrasted scanning from skull base through lung apices with review of bone, soft tissue and lung windows. Reconstructed coronal and sagittal MPR images reviewed. All images stored on PACS. All CT scanners at this facility use dose modulation, iterative reconstruction, and/or weight based d osing when appropriate to reduce radiation dose to as low as reasonably achievable (ALARA). [facility]: Dose Right [facility]: CareDose [facility]: Dose Right [facility]: Teradose 4D [facility]: LeBUZZ CONTRAST TYPE AND DOSE: contrast/concentration: Isovue 350.00 mg/ml; Total Contrast Delivered: 80.0 ml; Total Saline Delivered: 55.0 ml RENAL FUNCTION: BUN 19 creatinine 0.59. RADIATION DOSE: . LIMITATIONS: None. FINDINGS: SKULL BASE: Intact. MAJOR SALIVARY GLANDS: No solid or cystic masses. No inflammatory changes. LYMPHADENOPATHY: No adenopathy. MUCOSAL MASSES OR ASYMMETRY: Interval extensive surgical changes. Resection on the left side of the tongue and oropharynx with fatty tissue present, secondary to reconstruction flap. Multiple surgical clips. LARYNX/CORDS: No abnormal findings. VASCULAR STRUCTURES: The major vessels are patent. LUNG APICES: Clear. BONES: Intact. Degenerative changes in the cervical spine. THYROID: Normal size. No masses. PARANASAL SINUSES: Clear. OTHER: No other significant finding. IMPRESSION: INTERVAL SURGICAL CHANGES WITH RESECTION ON THE LEFT SIDE OF THE TONGUE AND SURGICAL SHANNON NGES IN THE OROPHARYNX WITH RECONSTRUCTION FLAP. SURGICAL CLIPS. DUE TO THE POSTOPERATIVE CHANGES A ND DISTORTED ANATOMY, DIFFICULT TO EVALUATE FOR RESIDUAL OR RECURRENT TUMOR. NO GROSSLY ENLARGED MAS SES IDENTIFIED. NO ADENOPATHY OR OTHER SIGNIFICANT FINDINGS. TECHNICAL DOCUMENTATION: JOB ID: [id number] Quality ID # [id number]: Final reports with documentation of one or more dose reduction techniques (e.g., Au tomated exposure control, adjustment of the mA and/or kV according to patient size, use of iterative reconstruction technique) 2010 [employer]- All Rights Reserved Reading location - IP/workstation name: [email or web address]
--- NOTE | 2017-10-11 16:11 | RADIOLOGY REPORT (SQ) ---
EXAM DESCRIPTION: CT CHEST WITH COMPLETED DATE/TIME: 10/11/2017 2:23 pm REASON FOR STUDY: MALIGNANT NEOPLASM OF HEAD, FACE AND NECK C76.0 MALIGNANT NEOPLASM OF HEAD, FACE AND NECK COMPARISON: 03/18/2017. TECHNIQUE: CT scan of the chest performed using helical scanning technique with dynamic intravenous contrast injection. Images reviewed with lung, soft tissue and bone windows. Reconstructed coronal and sagittal MPR images reviewed. All images stored on PACS. All CT scanners at this facility use dose modulation, iterative reconstruction, and/or weight based d osing when appropriate to reduce radiation dose to as low as reasonably achievable (ALARA). [facility]: Dose Right [facility]: CareDose [facility]: Dose Right [facility]: Teradose 4D [facility]: Konbini CONTRAST TYPE AND DOSE: 80 mL Omnipaque 350- low osmolar. RENAL FUNCTION: BUN 19 creatinine 0.59. RADIATION DOSE: . LIMITATIONS: None. FINDINGS: LUNGS AND PLEURA: Centrilobular emphysema. Chronic interstitial scarring. The previously seen 4 mm nodule in the right lung is no longer present. No new nodules or masses. No infiltrates. No pleural effusion or pleural thickening. HILAR AND MEDIASTINAL STRUCTURES: No identified masses or abnormal nodes. HEART AND VASCULAR STRUCTURES: No aneurysm or dissection. No central pulmonary emboli. No pericardi al effusion. HARDWARE: Hardware at the gastroesophageal junction. Gastrostomy tube. UPPER ABDOMEN: No significant findings. Limited exam. THYROID AND OTHER SOFT TISSUES: No masses. No adenopathy. BONES: No significant finding. OTHER: No other significant finding. IMPRESSION: CENTRILOBULAR EMPHYSEMA AND CHRONIC INTERSTITIAL CHANGES. PREVIOUSLY SEEN 4 MM NODULE I N THE RIGHT LUNG IS NO LONGER PRESENT. NO NEW NODULES OR MASSES. NO ACUTE FINDINGS. TECHNICAL DOCUMENTATION: JOB ID: [id number] Quality ID # [id number]: Final reports with documentation of one or more dose reduction techniques (e.g., Au tomated exposure control, adjustment of the mA and/or kV according to patient size, use of iterative reconstruction technique) 2010 [employer]- All Rights Reserved Reading location - IP/workstation name: [email or web address]
== END ==
LOC: RAD 13:12
PROVIDERS: ATTEND Internal Medicine
DX: C76.0 Malignant neoplasm of head, face and neck (principal)
CPT/HCPCS: 70491; 71260

== ENCOUNTER 2017-10-14 12:06 | Day surgery (SDC) | payer MEDICARE ==
[~2017-10-14 12:06] MED LIST changes: -ACETAMINOPHEN 325 MG TABLET PO PRN; -CARBOPLATIN IV PRN; +CEFAZOLIN 1 GM/D5W RTU 1 GM/50 ML RTUPB IV PRN; -CETUXIMAB IV PRN; -CONTAINER EMPTY IV PRN; -DEXAMETHASONE SOD PHOSPHATE 10 MG in NORMAL SALINE 50 ML IV PRN; +DEXTROSE 5%-NORMAL SALINE 1,000 ML IV PRN; +DIAZEPAM 5 MG TABLET PO PRN; -DIPHENHYDRAMINE HCL 50 MG in NORMAL SALINE 50 ML IV PRN; -FAMOTIDINE/PF 20 MG in NORMAL SALINE 50 ML IV PRN; -NORMAL SALINE 250 ML IV PRN; -NORMAL SALINE IV PRN; +OXYCODONE-ACETAMINOPHEN 5-325 MG TABLET PO PRN; -PACLITAXEL SEMI SYNTHETIC IV PRN; -PALONOSETRON 0.25 MG/5 ML SDV IV PRN
[2017-10-14 12:53] LABS: HEMATOCRIT 33.5 % (36.0-47.0); HEMOGLOBIN 11.5 g/dL (12.0-15.5); MEAN CORPUSCULAR HGB CONC 34.5 g/dL (32.0-36.0); MEAN CORPUSCULAR VOLUME 93 fl (80-97); RED BLOOD COUNT 3.61 10^6/uL (3.72-5.28); WHITE BLOOD COUNT 2.8 10^3/uL (4.0-10.5)
--- NOTE | 2017-10-14 13:04 | RADIOLOGY REPORT (SQ) ---
EXAM DESCRIPTION: CHEST SINGLE VIEW COMPLETED DATE/TIME: 10/14/2017 12:47 pm REASON FOR STUDY: PREOP COMPARISON: 04/22/2017 EXAM PARAMETERS: NUMBER OF VIEWS: One view. TECHNIQUE: Single frontal radiographic view of the chest acquired. RADIATION DOSE: NA LIMITATIONS: None. FINDINGS: LUNGS AND PLEURA: Hyperinflation of the lungs, stable finding. No opacities, masses or p neumothorax. No pleural effusion. MEDIASTINUM AND HILAR STRUCTURES: No masses. Contour normal. HEART AND VASCULAR STRUCTURES: Heart normal in size. Normal vasculature. BONES: No acute findings. HARDWARE: None in the chest. OTHER: No other significant finding. IMPRESSION: 1 Stable examination of the chest since the prior study dated 04/22/2017. No acute findi ngs. TECHNICAL DOCUMENTATION: JOB ID: [id number] [employer]- All Rights Reserved Reading location - IP/workstation name: [email or web address]
[2017-10-14 13:07] LABS: ANION GAP 9 (5-19); BLOOD UREA NITROGEN 15 mg/dL (7-20); CALCIUM 9.7 mg/dL (8.4-10.2); CARBON DIOXIDE 32 mmol/L (22-30); CHLORIDE 101 mmol/L (98-107); GLUCOSE 87 mg/dL (75-110); POTASSIUM 3.9 mmol/L (3.6-5.0); SODIUM 142.3 mmol/L (137-145)
[2017-10-14 13:34] LABS: PLATELET COUNT 93 10^3/uL (150-450)
[2017-10-14] MEDS ORDERED: FENTANYL CITRATE INJ/PF 100 MCG/2 ML AMPUL ONE (14:07)
[2017-10-14] MEDS ORDERED: MIDAZOLAM 2 MG/2 ML INJ ONE (14:07)
[2017-10-14] MEDS ORDERED: LIDOCAINE 0.5% INJ-PF (5 MG/ML) 50 ML SDV ONE (14:07)
[2017-10-14] MEDS ORDERED: BACITRACIN INJ 50,000 UNIT VIAL ONE (14:08)
[2017-10-14] MEDS ORDERED: VANCOMYCIN HCL 500 MG in DEXTROSE 5%-WATER 100 ML IV ONE (15:00)
[2017-10-14 17:07] VITALS: BP 147/84
--- NOTE | 2017-10-15 11:44 | RADIOLOGY REPORT (SQ) ---
EXAM DESCRIPTION: PORTACATH INSERTION COMPLETED DATE/TIME: 10/15/2017 10:32 am REASON FOR STUDY: C76.0 CANCER OF HEAD, FACE AND NECK C76.0 MALIGNANT NEOPLASM OF HEAD, FACE AND NE CK COMPARISON: None. FLUOROSCOPY TIME: 0.1 minute 18 images saved to PACS. TECHNIQUE: Intra-operative images acquired during surgical procedure to evaluate progress. NUMBER OF IMAGES: 18 LIMITATIONS: None. FINDINGS: Selected images from left port placement. Tip overlies SVC. IMPRESSION: IMAGE(S) OBTAINED DURING PROCEDURE. COMMENT: Quality ID [id number]: Final reports for procedures using fluoroscopy that document radiation exp osure indices, or exposure time and number of fluorographic images (if radiation exposure indices are not available) Please consult full operative report of the attending physician for description of the procedure. TECHNICAL DOCUMENTATION: JOB ID: [id number] [employer]- All Rights Reserved Reading location - IP/workstation name: [email or web address]
--- NOTE | 2017-10-20 13:09 | Discharge Summary ---
Discharge Summary (SDC) - Discharge Final Diagnosis: Head and neck cancer. Date of Surgery: 10/14/17 Discharge Date: 10/14/17 Condition: Good Forms: Sedation D/C Instructions, Discharge POC-Surgical Service Referrals: HEIDE GANDARA MD [Primary Care Provider] - SHANNON HARMAN MD [ACTIVE STAFF] - (Follow up with Dr Harman as scheduled) Respiratory Treatments at Home: Deep Breathing/Coughing Discharge Activity: Activity As Tolerated, No Lifting Over 10 Pounds, No Lifting /Push/Pulling Home Care Assistance: None Needed Report the Following to Your Physician Immediately: Shortness of Breath, Nausea , Vomiting, Increase in Pain, Fever over 101 Degrees, Unusual Bleeding, Redness , Swelling, Warmth, Increased Soreness, IV Site Infection Signs
--- NOTE | 2017-10-20 13:12 | Operative Report ---
Operative Report DATE OF SURGERY: 10/14/17 PREOPERATIVE DIAGNOSIS: Head and neck cancer. POSTOPERATIVE DIAGNOSIS: Head and neck cancer. OPERATION: 1. Ultrasound evaluation and real-time access of the left internal jugular vein. 2. Insertion of Port-A-Cath via real time access of the left internal jugular vein. 3. Angiogram and interpretation. SURGEON: SHANNON DELVALLE RECREATION TECHNICIAN: None. ANESTHESIA: Moderate Sedation TISSUE REMOVED OR ALTERED: Not applicable. COMPLICATIONS: None. ESTIMATED BLOOD LOSS: 5 mL. INTRAOPERATIVE FINDINGS: Satisfactory access in this normal sized left internal jugular vein estimated to be 1 cm in diameter in this small patient. Satisfactory and safe access. Satisfactory position the tip of the catheter well down in the superior vena cava. Easy egress of blood and ingress of heparinized solution. Smooth flow of contrast through the right atrium, ventricle and pulmonary outflow tract. PROCEDURE: After obtaining informed consent, the patient was taken to the [facility] [employer] [facility] and positioned supine. The left neck and chest were prepared with chlorhexidine and draped out with sterile linen. After the " universal timeout", in which it was verified that the patient continued to receive antibiotic, the procedure commenced. A steriley sheathed ultrasound probe was used to evaluate the left internal jugular vein. Local anesthesia was infiltrated adjacent to the probe. Access into the [right] internal jugular vein was obtained using a micropuncture needle, followed by micropuncture wire and then a micropuncture catheter. This was followed by introduction of a 0.035 guidewire the tip of which was placed down into the inferior vena cava . The port sites was marked , locally anesthetized and incision made. Dissection now proceeded to the deep subcutaneous subcutaneous tissues so that a pocket for the port was made. Meticulous hemostasis was secured and the catheter was tunneled between the 2 incisions. Proximally, the catheter was now positioned using a peel-away sheath. Distally the catheter was tailored to an appropriate length and then mated to the port using the contained fixating device. The port was now placed in the pocket and the catheter optimally positioned. The port was accessed with a Bender needle and an angiogram done under digital subtraction. The findings as dictated. With adequate and satisfactory positioning, both lumens of the chamber were irrigated with heparinized solution. The wounds were now closed using interrupted 3-0 PDS to the subcutaneous tissues and a continuous subcuticular suture of 4-0 Monocryl to the skin. These are reinforced with Steri-Strips over benzoin and then dressings applied. Copies of the dictated operative report for Dr. Shannon Harman MD.
== END 2017-10-14 16:50 | disposition home or self-care (01) ==
LOC: CCL 12:06
PROVIDERS: ATTEND Surgery
DX: C76.0 Malignant neoplasm of head, face and neck (principal); F32.9 Major depressive disorder, single episode, unspecified; I95.9 Hypotension, unspecified; C14.0 Malignant neoplasm of pharynx, unspecified; E78.00 Pure hypercholesterolemia, unspecified; K21.9 Gastro-esophageal reflux disease without esophagitis; E87.6 Hypokalemia; Z88.5 Allergy status to narcotic agent; Z88.2 Allergy status to sulfonamides; Z88.3 Allergy status to other anti-infective agents; Z87.891 Personal history of nicotine dependence
CPT/HCPCS: 36561 ×2; 36415; 85027; 80048; 76937; 77001; 71045; C1752; C1788; Q9967; J2250; J3490 ×2; J0690; A9270 ×2; J3010; J3370; J1644

== ENCOUNTER 2017-10-29 08:16 | Outpatient (CLI) | payer MEDICARE ==
[~2017-10-29 08:16] MED LIST changes: +CARBOPLATIN IV PRN; -CEFAZOLIN 1 GM/D5W RTU 1 GM/50 ML RTUPB IV PRN; +CETUXIMAB IV PRN; +CONTAINER EMPTY IV PRN; +DEXAMETHASONE SOD PHOSPHATE 10 MG in NORMAL SALINE 50 ML IV PRN; -DEXTROSE 5%-NORMAL SALINE 1,000 ML IV PRN; -DIAZEPAM 5 MG TABLET PO PRN; +DIPHENHYDRAMINE HCL 50 MG/ML VIAL IV PRN; +FAMOTIDINE/PF 20 MG in NORMAL SALINE 50 ML IV PRN; +NORMAL SALINE 250 ML IV PRN; +NORMAL SALINE IV PRN; -OXYCODONE-ACETAMINOPHEN 5-325 MG TABLET PO PRN; +PACLITAXEL SEMI SYNTHETIC IV PRN; +PALONOSETRON 0.25 MG/5 ML SDV IV PRN
[2017-10-29 08:36] LABS: ABSOLUTE EOSINOPHILS # (AUTO) 0.1 10^3/uL (0.0-0.6); ABSOLUTE LYMPHOCYTES (AUTO) 0.5 10^3/uL (0.5-4.7); ABSOLUTE MONOCYTES (AUTO) 0.3 10^3/uL (0.1-1.4); ABSOLUTE NEUT (AUTO) 1.4 10^3/uL (1.7-8.2); BASOPHILS % (AUTO) 0.2 % (0-2); EOSINOPHILS % (AUTO) 5.2 % (0-6); HEMOGLOBIN 10.4 g/dL (12.0-15.5); LYMPHOCYTES % (AUTO) 21.5 % (13-45); MEAN CORPUSCULAR HEMOGLOBIN 33.3 pg (27.0-33.4); MEAN CORPUSCULAR HGB CONC 34.7 g/dL (32.0-36.0); MEAN CORPUSCULAR VOLUME 96 fl (80-97); MONOCYTES % (AUTO) 13.8 % (3-13); PLATELET COUNT 246 10^3/uL (150-450); RED BLOOD COUNT 3.12 10^6/uL (3.72-5.28); RED CELL DISTRIBUTION WIDTH 15.4 % (11.5-14.0); SEGMENTED NEUTROPHILS % (AUTO) 59.3 % (42-78); TOTAL CELLS COUNTED % (AUTO) 100 %; WHITE BLOOD COUNT 2.4 10^3/uL (4.0-10.5)
[2017-10-29 09:41] VITALS: BP 85/47
[2017-10-29 11:23] LABS: ALANINE AMINOTRANSFERASE 20 U/L (9-52); ALBUMIN 3.6 g/dL (3.5-5.0); ALKALINE PHOSPHATASE 70 U/L (38-126); ANION GAP 8 (5-19); ASPARTATE AMINO TRANSFERASE 22 U/L (14-36); BILIRUBIN,DIRECT 0.2 mg/dL (0.0-0.4); BILIRUBIN,TOTAL 0.2 mg/dL (0.2-1.3); BLOOD UREA NITROGEN 21 mg/dL (7-20); CARBON DIOXIDE 32 mmol/L (22-30); CHLORIDE 103 mmol/L (98-107); GLUCOSE 78 mg/dL (75-110); POTASSIUM 4.3 mmol/L (3.6-5.0); SODIUM 142.8 mmol/L (137-145); TOTAL PROTEIN 6.2 g/dL (6.3-8.2)
== END 2017-10-29 13:22 | disposition home or self-care (01) ==
LOC: II 08:16
PROVIDERS: ATTEND Internal Medicine
PROC: 3E0430M Introduction of Antineoplastic, Monoclonal Antibody, into Central Vein, Percutaneous Approach (ICD-10-PCS; principal; 2017-10-29)
PROC: 3E04305 Introduction of Other Antineoplastic into Central Vein, Percutaneous Approach (ICD-10-PCS; 2017-10-29)
PROC: 3E0433Z Introduction of Anti-inflammatory into Central Vein, Percutaneous Approach (ICD-10-PCS; 2017-10-29)
PROC: 3E043GC Introduction of Other Therapeutic Substance into Central Vein, Percutaneous Approach (ICD-10-PCS; 2017-10-29)
DX: Z51.11 Encounter for antineoplastic chemotherapy (principal); C76.0 Malignant neoplasm of head, face and neck
CPT/HCPCS: 36415; 83735; 85025; 80053; 96413; 96415; 96367; 96374; 96375; 96360; 96417; J1200; A9270; J9045 ×2; J7050; J9267; S0028; J1100; J2469; J9055; J3490

== ENCOUNTER 2017-11-05 09:50 | Outpatient (CLI) | payer MEDICARE ==
[2017-11-05 10:25] VITALS: BP 94/54
[2017-11-05] MEDS ORDERED: NORMAL SALINE 1000 ML 1,000 ML IV PRN (10:40)
== END 2017-11-05 14:46 | disposition home or self-care (01) ==
LOC: II 09:50 → 5TH 09:53 → II 14:46
PROVIDERS: ATTEND Internal Medicine
PROC: 3E0430M Introduction of Antineoplastic, Monoclonal Antibody, into Central Vein, Percutaneous Approach (ICD-10-PCS; principal; 2017-11-05)
PROC: 3E04305 Introduction of Other Antineoplastic into Central Vein, Percutaneous Approach (ICD-10-PCS; 2017-11-05)
PROC: 3E0433Z Introduction of Anti-inflammatory into Central Vein, Percutaneous Approach (ICD-10-PCS; 2017-11-05)
PROC: 3E043GC Introduction of Other Therapeutic Substance into Central Vein, Percutaneous Approach (ICD-10-PCS; 2017-11-05)
DX: Z51.11 Encounter for antineoplastic chemotherapy (principal); C76.0 Malignant neoplasm of head, face and neck
CPT/HCPCS: 96413; 96415; 96367; 96375; 96360; J1200; J9045; A9270; J7050; J9267; S0028; J1100; J2469; J9055; 96361; 96417; J3490

== ENCOUNTER 2017-11-12 09:42 | Outpatient (CLI) | payer MEDICARE ==
[~2017-11-12 09:42] MED LIST changes: +ACETAMINOPHEN 325 MG TABLET PO PRN
[2017-11-12] MEDS ORDERED: ACETAMINOPHEN SOLN 325 MG/10.15 ML UDCUP PO PRN (11:01)
[2017-11-12 13:57] VITALS: BP 86/53
== END 2017-11-12 14:30 | disposition home or self-care (01) ==
LOC: II 09:42 → 5TH 09:45 → II 14:30
PROVIDERS: ATTEND Internal Medicine
PROC: 3E04305 Introduction of Other Antineoplastic into Central Vein, Percutaneous Approach (ICD-10-PCS; principal; 2017-11-12)
PROC: 3E0430M Introduction of Antineoplastic, Monoclonal Antibody, into Central Vein, Percutaneous Approach (ICD-10-PCS; 2017-11-12)
PROC: 3E043GC Introduction of Other Therapeutic Substance into Central Vein, Percutaneous Approach (ICD-10-PCS; 2017-11-12)
PROC: 3E0433Z Introduction of Anti-inflammatory into Central Vein, Percutaneous Approach (ICD-10-PCS; 2017-11-12)
DX: Z51.11 Encounter for antineoplastic chemotherapy (principal); C76.0 Malignant neoplasm of head, face and neck
CPT/HCPCS: 96413; 96415; 96367; 96375; J1200; J9045; A9270; J7050; J9267; S0028; J1100; J2469; J9055; 96417; J3490

== ENCOUNTER 2017-11-27 09:57 | Outpatient (CLI) | payer MEDICARE ==
[2017-11-27] MEDS ORDERED: DIPHENHYDRAMINE HCL 50 MG/ML VIAL IV PRN (10:09)
[2017-11-27] MEDS ORDERED: NORMAL SALINE 250 ML IV PRN (10:10)
[2017-11-27] MEDS ORDERED: PALONOSETRON 0.25 MG/5 ML SDV IV PRN (10:11)
[2017-11-27] MEDS ORDERED: DEXAMETHASONE SOD PHOSPHATE 10 MG in NORMAL SALINE 50 ML IV PRN (10:13)
[2017-11-27] MEDS ORDERED: CETUXIMAB IV PRN ×2 (10:17→10:33)
[2017-11-27] MEDS ORDERED: CONTAINER EMPTY IV PRN ×2 (10:17→10:33)
[2017-11-27] MEDS ORDERED: FAMOTIDINE/PF 20 MG in NORMAL SALINE 50 ML IV PRN (10:19)
[2017-11-27] MEDS ORDERED: NORMAL SALINE IV PRN ×2 (10:22→10:23)
[2017-11-27] MEDS ORDERED: PACLITAXEL SEMI SYNTHETIC IV PRN (10:22)
[2017-11-27] MEDS ORDERED: CARBOPLATIN IV PRN (10:23)
[2017-11-27 11:26] VITALS: BP 94/64
== END 2017-11-27 15:19 | disposition home or self-care (01) ==
LOC: II 09:57 → 5TH 09:58 → II 15:19
PROVIDERS: ATTEND Internal Medicine
PROC: 3E0430M Introduction of Antineoplastic, Monoclonal Antibody, into Central Vein, Percutaneous Approach (ICD-10-PCS; principal; 2017-11-27)
PROC: 3E04305 Introduction of Other Antineoplastic into Central Vein, Percutaneous Approach (ICD-10-PCS; 2017-11-27)
PROC: 3E0433Z Introduction of Anti-inflammatory into Central Vein, Percutaneous Approach (ICD-10-PCS; 2017-11-27)
PROC: 3E043GC Introduction of Other Therapeutic Substance into Central Vein, Percutaneous Approach (ICD-10-PCS; 2017-11-27)
DX: Z51.11 Encounter for antineoplastic chemotherapy (principal); C76.0 Malignant neoplasm of head, face and neck
CPT/HCPCS: 96413; 96415; 96367; 96375; J1200; J9045; A9270; J7050; J9267; S0028; J1100; J2469; J9055; 96417; J3490

== ENCOUNTER 2017-12-04 08:45 | Outpatient (CLI) | payer MEDICARE ==
[~2017-12-04 08:45] MED LIST changes: -ACETAMINOPHEN 325 MG TABLET PO PRN
[2017-12-04 09:12] VITALS: BP 87/51
== END 2017-12-04 12:11 | disposition home or self-care (01) ==
LOC: II 08:45 → 5TH 08:45 → II 12:11
PROVIDERS: ATTEND Internal Medicine
PROC: 3E0430M Introduction of Antineoplastic, Monoclonal Antibody, into Central Vein, Percutaneous Approach (ICD-10-PCS; principal; 2017-12-04)
PROC: 3E04305 Introduction of Other Antineoplastic into Central Vein, Percutaneous Approach (ICD-10-PCS; 2017-12-04)
PROC: 3E0433Z Introduction of Anti-inflammatory into Central Vein, Percutaneous Approach (ICD-10-PCS; 2017-12-04)
PROC: 3E043GC Introduction of Other Therapeutic Substance into Central Vein, Percutaneous Approach (ICD-10-PCS; 2017-12-04)
DX: Z51.11 Encounter for antineoplastic chemotherapy (principal); C76.0 Malignant neoplasm of head, face and neck
CPT/HCPCS: 96413; 96415; 96367; 96374; 96375; 96360; 96417; J9045; A9270; J7050; J9267; S0028; J1100; J2469; J9055; J3490

== ENCOUNTER 2017-12-11 08:55 | Outpatient (CLI) | payer MEDICARE ==
[2017-12-11 09:18] VITALS: BP 111/64
== END 2017-12-11 14:01 | disposition home or self-care (01) ==
LOC: II 08:55 → 5TH 08:56 → II 14:01
PROVIDERS: ATTEND Internal Medicine
PROC: 3E0430M Introduction of Antineoplastic, Monoclonal Antibody, into Central Vein, Percutaneous Approach (ICD-10-PCS; principal; 2017-12-11)
PROC: 3E04305 Introduction of Other Antineoplastic into Central Vein, Percutaneous Approach (ICD-10-PCS; 2017-12-11)
PROC: 3E0433Z Introduction of Anti-inflammatory into Central Vein, Percutaneous Approach (ICD-10-PCS; 2017-12-11)
PROC: 3E043GC Introduction of Other Therapeutic Substance into Central Vein, Percutaneous Approach (ICD-10-PCS; 2017-12-11)
DX: Z51.11 Encounter for antineoplastic chemotherapy (principal); C76.0 Malignant neoplasm of head, face and neck
CPT/HCPCS: 96413; 96367; 96375; 96417; J1200; J9045; A9270; J7050; J9267; S0028; J1100; J2469; J9055; 96415; J3490

== ENCOUNTER → 2017-12-20 | Outpatient (CLI) | payer MEDICARE ==
--- NOTE | 2017-12-20 12:21 | RADIOLOGY REPORT (SQ) ---
EXAM DESCRIPTION: CT SOFT TISSUE NECK WITH COMPLETED DATE/TIME: 12/20/2017 9:45 am REASON FOR STUDY: C76.0 MALIGNANT NEOPLASM OF HEAD, FACE AND NECK C76.0 MALIGNANT NEOPLASM OF HEAD, FACE AND NECK R10.9 UNSPECIFIED ABDOMINAL PAIN COMPARISON: 10/11/2017 and 03/26/2017. TECHNIQUE: Post IV contrasted scanning from skull base through lung apices with review of bone, soft tissue and lung windows. Reconstructed coronal and sagittal MPR images reviewed. All images stored on PACS. All CT scanners at this facility use dose modulation, iterative reconstruction, and/or weight based d osing when appropriate to reduce radiation dose to as low as reasonably achievable (ALARA). [facility]: Dose Right [facility]: CareDose [facility]: Dose Right [facility]: Teradose 4D [facility]: Silecs CONTRAST TYPE AND DOSE: 56 mL Omnipaque 350- low osmolar. RENAL FUNCTION: Creatinine 0.6. RADIATION DOSE: CT Rad equipment meets quality standard of care and radiation dose reduction techniq ues were employed. CTDIvol: 5.7 - 11.5 mGy. DLP: 1099 mGy-cm. . LIMITATIONS: None. FINDINGS: SKULL BASE: Intact. MAJOR SALIVARY GLANDS: No solid or cystic masses. No inflammatory changes. LYMPHADENOPATHY: No adenopathy. MUCOSAL MASSES OR ASYMMETRY: Again seen are extensive surgical changes on the left side with resectio n of a portion of the tongue and numerous surgical clips. Reconstruction flap present. No change an d no developing soft tissue mass. LARYNX/CORDS: No abnormal findings. VASCULAR STRUCTURES: The major vessels are patent. LUNG APICES: Clear. BONES: Intact. Degenerative changes in the spine. THYROID: Normal size. No masses. PARANASAL SINUSES: Clear. OTHER: No other significant finding. IMPRESSION: STABLE APPEARANCE. EXTENSIVE SURGICAL CHANGES ON THE LEFT SIDE WITH SIGNIFICANT ANATOMI C DISTORTION. NO GROSS EVIDENCE OF RECURRENT MASS. NO ADENOPATHY OR OTHER INTERVAL FINDINGS. TECHNICAL DOCUMENTATION: JOB ID: [id number] Quality ID # [id number]: Final reports with documentation of one or more dose reduction techniques (e.g., Au tomated exposure control, adjustment of the mA and/or kV according to patient size, use of iterative reconstruction technique) 2010 [employer]- All Rights Reserved Reading location - IP/workstation name: [facility]
--- NOTE | 2017-12-20 12:32 | RADIOLOGY REPORT (SQ) ---
EXAM DESCRIPTION: CT CHEST WITH COMPLETED DATE/TIME: 12/20/2017 9:45 am REASON FOR STUDY: C76.0 MALIGNANT NEOPLASM OF HEAD, FACE AND NECK C76.0 MALIGNANT NEOPLASM OF HEAD, FACE AND NECK R10.9 UNSPECIFIED ABDOMINAL PAIN COMPARISON: 10/11/2017 and 03/18/2017. TECHNIQUE: CT scan of the chest performed using helical scanning technique with dynamic intravenous contrast injection. Images reviewed with lung, soft tissue and bone windows. Reconstructed coronal and sagittal MPR and MIP images reviewed. All images stored on PACS. All CT scanners at this facility use dose modulation, iterative reconstruction, and/or weight based d osing when appropriate to reduce radiation dose to as low as reasonably achievable (ALARA). [facility]: Dose Right [facility]: CareDose [facility]: Dose Right [facility]: Teradose 4D [facility]: Poynt CONTRAST TYPE AND DOSE: 56 mL Omnipaque 350- low osmolar. RENAL FUNCTION: Creatinine 0.6. RADIATION DOSE: . LIMITATIONS: None. FINDINGS: LUNGS AND PLEURA: Emphysematous changes. Mild scarring. No opacities, nodules, masses. No pneumothorax. No effusions. HILAR AND MEDIASTINAL STRUCTURES: No identified masses or abnormal nodes. HEART AND VASCULAR STRUCTURES: No aneurysm or dissection. No central pulmonary emboli. No pericardi al effusion. HARDWARE: Metallic hardware at the gastroesophageal junction. UPPER ABDOMEN: No significant findings. Limited exam. THYROID AND OTHER SOFT TISSUES: No masses. No adenopathy. BONES: No significant finding. OTHER: No other significant finding. IMPRESSION: STABLE APPEARANCE. CHRONIC EMPHYSEMATOUS CHANGES WITH MILD SCARRING. NO ACUTE FINDINGS . NO EVIDENCE OF METASTATIC INVOLVEMENT IN THE CHEST. TECHNICAL DOCUMENTATION: JOB ID: [id number] Quality ID # [id number]: Final reports with documentation of one or more dose reduction techniques (e.g., Au tomated exposure control, adjustment of the mA and/or kV according to patient size, use of iterative reconstruction technique) 2010 [employer]- All Rights Reserved Reading location - IP/workstation name: [email or web address]
--- NOTE | 2017-12-20 12:39 | RADIOLOGY REPORT (SQ) ---
EXAM DESCRIPTION: CT ABD/PELVIS WITH IV ONLY COMPLETED DATE/TIME: 12/20/2017 9:45 am REASON FOR STUDY: ABDOMINAL PAIN C76.0 MALIGNANT NEOPLASM OF HEAD, FACE AND NECK R10.9 UNSPECIFIED ABDOMINAL PAIN COMPARISON: 03/18/2017. TECHNIQUE: CT scan of the abdomen and pelvis performed using helical scanning technique with dynamic intravenous contrast injection. No oral contrast. Images reviewed with lung, soft tissue, and bone windows. Reconstructed coronal and sagittal MPR images reviewed. Delayed images for evaluation of the urinary system also acquired. All images stored on PACS. All CT scanners at this facility use dose modulation, iterative reconstruction, and/or weight based d osing when appropriate to reduce radiation dose to as low as reasonably achievable (ALARA). [facility]: Dose Right [facility]: CareDose [facility]: Dose Right [facility]: Teradose 4D [facility]: Solutionary CONTRAST TYPE AND DOSE: contrast/concentration: Isovue 350.00 mg/ml; Total Contrast Delivered: 56.0 ml; Total Saline Delivered: 65.0 ml RENAL FUNCTION: Creatinine 0.6. RADIATION DOSE: . LIMITATIONS: None. FINDINGS: LOWER CHEST: No significant findings. No nodules or infiltrates. LIVER: Normal size. No masses. No dilated ducts. SPLEEN: Normal size. No focal lesions. PANCREAS: No masses. No significant calcifications. No adjacent inflammation or peripancreatic fluid collections. Pancreatic duct not dilated. GALLBLADDER: No identified stones by CT criteria. No inflammatory changes to suggest cholecystitis. ADRENAL GLANDS: No significant masses or asymmetry. RIGHT KIDNEY AND URETER: No solid masses. No significant calcifications. No hydronephrosis or hyd roureter. LEFT KIDNEY AND URETER: No solid masses. No significant calcifications. No hydronephrosis or hydr oureter. AORTA AND VESSELS: No aneurysm. No dissection. Renal arteries, SMA, celiac without stenosis. RETROPERITONEUM: No retroperitoneal adenopathy, hemorrhage or masses. BOWEL AND PERITONEAL CAVITY: Gastrostomy tube present. No masses or inflammatory changes. No free fl uid or peritoneal masses. APPENDIX: Normal. PELVIS: No mass. No free fluid. Normal bladder. ABDOMINAL WALL: No masses. No hernias. BONES: No significant or acute findings. Degenerative changes in the spine. OTHER: No other significant finding. IMPRESSION: NO SIGNIFICANT OR ACUTE FINDING IN THE ABDOMEN OR PELVIS ON CT SCAN WITH IV CONTRAST. N O EVIDENCE OF METASTATIC INVOLVEMENT. TECHNICAL DOCUMENTATION: JOB ID: [id number] Quality ID # 436: Final reports with documentation of one or more dose reduction techniques (e.g., Au tomated exposure control, adjustment of the mA and/or kV according to patient size, use of iterative reconstruction technique) 2010 [employer]- All Rights Reserved Reading location - IP/workstation name: [facility]
== END ==
LOC: RAD 08:31
PROVIDERS: ATTEND Internal Medicine
DX: C76.0 Malignant neoplasm of head, face and neck (principal); R10.9 Unspecified abdominal pain
CPT/HCPCS: 70491; 71260; 74177; 82565

== ENCOUNTER 2018-01-01 08:34 | Outpatient (CLI) | payer MEDICARE ==
[~2018-01-01 08:34] MED LIST changes: +DIPHENHYDRAMINE HCL 50 MG in NORMAL SALINE 50 ML IV PRN; -DIPHENHYDRAMINE HCL 50 MG/ML VIAL IV PRN
[2018-01-01 09:21] VITALS: BP 106/61
[2018-01-01] MEDS: MAGNESIUM SULFATE 1 GM/D5W 100 ML IV SCH ×2 (13:05→14:11)
== END 2018-01-01 15:14 | disposition home or self-care (01) ==
LOC: II 08:34 → 5TH 08:35 → II 15:14
PROVIDERS: ATTEND Internal Medicine
PROC: 3E04305 Introduction of Other Antineoplastic into Central Vein, Percutaneous Approach (ICD-10-PCS; principal; 2018-01-01)
PROC: 3E0430M Introduction of Antineoplastic, Monoclonal Antibody, into Central Vein, Percutaneous Approach (ICD-10-PCS; 2018-01-01)
PROC: 3E0433Z Introduction of Anti-inflammatory into Central Vein, Percutaneous Approach (ICD-10-PCS; 2018-01-01)
PROC: 3E043GC Introduction of Other Therapeutic Substance into Central Vein, Percutaneous Approach (ICD-10-PCS; 2018-01-01)
DX: Z51.11 Encounter for antineoplastic chemotherapy (principal); C76.0 Malignant neoplasm of head, face and neck; E83.42 Hypomagnesemia
CPT/HCPCS: 36415; 83735; 96413; 96415; 96366; 96367; 96375; 96417; J1200; J9045; A9270; J3475; J7050; J9267; S0028; J1100; J2469; J9055; 96374; J3490

== ENCOUNTER 2018-01-08 08:57 | Outpatient (CLI) | payer MEDICARE ==
[2018-01-08 09:29] VITALS: BP 84/61
[2018-01-08] MEDS: MAGNESIUM SULFATE 1 GM/D5W 100 ML IV SCH ×2 (14:17→15:20)
== END 2018-01-08 16:26 | disposition home or self-care (01) ==
LOC: II 08:57 → 5TH 08:58 → II 16:26
PROVIDERS: ATTEND Internal Medicine
PROC: 3E0430M Introduction of Antineoplastic, Monoclonal Antibody, into Central Vein, Percutaneous Approach (ICD-10-PCS; principal; 2018-01-08)
PROC: 3E04305 Introduction of Other Antineoplastic into Central Vein, Percutaneous Approach (ICD-10-PCS; 2018-01-08)
PROC: 3E0433Z Introduction of Anti-inflammatory into Central Vein, Percutaneous Approach (ICD-10-PCS; 2018-01-08)
PROC: 3E043GC Introduction of Other Therapeutic Substance into Central Vein, Percutaneous Approach (ICD-10-PCS; 2018-01-08)
DX: Z51.11 Encounter for antineoplastic chemotherapy (principal); C76.0 Malignant neoplasm of head, face and neck; E83.42 Hypomagnesemia
CPT/HCPCS: 96413; 96415; 96367; 96375; J1200; J9045; A9270; J3475; J7050; J9267; S0028; J1100; J2469; J9055; 96366; 96417; J3490

== ENCOUNTER 2018-01-15 09:38 | Outpatient (CLI) | payer MEDICARE ==
[2018-01-15] MEDS ORDERED: DIPHENHYDRAMINE HCL 50 MG in NORMAL SALINE 50 ML IV PRN (09:41)
[2018-01-15] MEDS ORDERED: NORMAL SALINE 250 ML IV PRN (09:41)
[2018-01-15] MEDS ORDERED: PALONOSETRON 0.25 MG/5 ML SDV IV PRN (09:42)
[2018-01-15] MEDS ORDERED: DEXAMETHASONE SOD PHOSPHATE 10 MG in NORMAL SALINE 50 ML IV PRN (09:42)
[2018-01-15] MEDS ORDERED: FAMOTIDINE/PF 20 MG in NORMAL SALINE 50 ML IV PRN (09:43)
[2018-01-15] MEDS ORDERED: CETUXIMAB IV PRN ×2 (09:44→10:05)
[2018-01-15] MEDS ORDERED: CONTAINER EMPTY IV PRN ×2 (09:44→10:05)
[2018-01-15] MEDS ORDERED: PACLITAXEL SEMI SYNTHETIC IV PRN ×2 (09:46→10:01)
[2018-01-15] MEDS ORDERED: NORMAL SALINE IV PRN ×4 (09:46→10:02)
[2018-01-15] MEDS ORDERED: CARBOPLATIN IV PRN ×2 (09:48→10:02)
[2018-01-15] MEDS ORDERED: NORMAL SALINE 1000 ML 1,000 ML IV PRN (09:50)
[2018-01-15 10:14] VITALS: BP 99/56
== END 2018-01-15 14:11 | disposition home or self-care (01) ==
LOC: II 09:38 → 5TH 09:40 → II 14:11
PROVIDERS: ATTEND Internal Medicine
DX: Z51.11 Encounter for antineoplastic chemotherapy (principal); C76.0 Malignant neoplasm of head, face and neck
CPT/HCPCS: 96413; 96415; 96367; 96374; 96375; 96360; 96361; 96417; J1200; J9045; A9270; J7050; J9267; S0028; J1100; J2469; J9055; J3490

== ENCOUNTER 2018-01-29 09:22 | Outpatient (CLI) | payer MEDICARE ==
[~2018-01-29 09:22] MED LIST changes: +DEXAMETHASONE SOD PHOSPHATE 10 MG in DEXTROSE 5%-WATER 50 ML IV PRN
[2018-01-29] MEDS ORDERED: MAGNESIUM SULFATE/D5W 1 GM/100 ML RTUPB IV PRN (09:56)
[2018-01-29] MEDS ORDERED: NORMAL SALINE 500 ML IV PRN (09:59)
[2018-01-29] MEDS ORDERED: MAGNESIUM SULFATE/D5W 1 GM/100 ML RTUPB IV ONE (13:35)
== END 2018-01-29 15:01 | disposition home or self-care (01) ==
LOC: II 09:22 → 5TH 09:23 → II 15:01
PROVIDERS: ATTEND Internal Medicine
PROC: 3E0430M Introduction of Antineoplastic, Monoclonal Antibody, into Central Vein, Percutaneous Approach (ICD-10-PCS; principal; 2018-01-29)
PROC: 3E04305 Introduction of Other Antineoplastic into Central Vein, Percutaneous Approach (ICD-10-PCS; 2018-01-29)
PROC: 3E043GC Introduction of Other Therapeutic Substance into Central Vein, Percutaneous Approach (ICD-10-PCS; 2018-01-29)
PROC: 3E0433Z Introduction of Anti-inflammatory into Central Vein, Percutaneous Approach (ICD-10-PCS; 2018-01-29)
DX: Z51.11 Encounter for antineoplastic chemotherapy (principal); C76.0 Malignant neoplasm of head, face and neck
CPT/HCPCS: 96413; 96415; 96365; 96367; 96374; 96375; 96360; 96361; 96417; J1200; J9045; A9270; J3475; J7050; J9267; S0028; J1100; J2469; J9055; J3490

== ENCOUNTER 2018-02-05 08:50 | Outpatient (CLI) | payer MEDICARE ==
[~2018-02-05 08:50] MED LIST changes: -CARBOPLATIN IV PRN; -DEXAMETHASONE SOD PHOSPHATE 10 MG in DEXTROSE 5%-WATER 50 ML IV PRN
[2018-02-05] MEDS ORDERED: CARBOPLATIN IV PRN ×2 (10:00→10:21)
[2018-02-05] MEDS ORDERED: NORMAL SALINE IV PRN ×2 (10:00→10:21)
[2018-02-05 10:11] VITALS: BP 89/55
[2018-02-05] MEDS ORDERED: MAGNESIUM SULFATE/D5W 2 GM/200 ML RTUPB IV ONE (10:22)
== END 2018-02-05 16:00 | disposition home or self-care (01) ==
LOC: II 08:50 → 5TH 08:54 → II 16:00
PROVIDERS: ATTEND Internal Medicine
PROC: 3E0430M Introduction of Antineoplastic, Monoclonal Antibody, into Central Vein, Percutaneous Approach (ICD-10-PCS; principal; 2018-02-05)
PROC: 3E04305 Introduction of Other Antineoplastic into Central Vein, Percutaneous Approach (ICD-10-PCS; 2018-02-05)
PROC: 3E0433Z Introduction of Anti-inflammatory into Central Vein, Percutaneous Approach (ICD-10-PCS; 2018-02-05)
PROC: 3E043GC Introduction of Other Therapeutic Substance into Central Vein, Percutaneous Approach (ICD-10-PCS; 2018-02-05)
DX: Z51.11 Encounter for antineoplastic chemotherapy (principal); C76.0 Malignant neoplasm of head, face and neck
CPT/HCPCS: 96413; 96366; 96367; 96375; 96417; J1200; J9045; A9270; J3475; J7050; J9267; S0028; J1100; J2469; J9055; 96415; J3490

== ENCOUNTER 2018-02-12 09:26 | Outpatient (CLI) | payer MEDICARE ==
[~2018-02-12 09:26] MED LIST changes: +CARBOPLATIN IV PRN
[2018-02-12 09:59] LABS: ABSOLUTE LYMPHOCYTES (AUTO) 0.6 10^3/uL (0.5-4.7); ABSOLUTE MONOCYTES (AUTO) 0.1 10^3/uL (0.1-1.4); ABSOLUTE NEUT (AUTO) 1.3 10^3/uL (1.7-8.2); BASOPHILS % (AUTO) 0.3 % (0-2); EOSINOPHILS % (AUTO) 1.5 % (0-6); HEMATOCRIT 27.3 % (36.0-47.0); HEMOGLOBIN 9.7 g/dL (12.0-15.5); LYMPHOCYTES % (AUTO) 29.8 % (13-45); MEAN CORPUSCULAR HEMOGLOBIN 35.3 pg (27.0-33.4); MEAN CORPUSCULAR HGB CONC 35.4 g/dL (32.0-36.0); MEAN CORPUSCULAR VOLUME 100 fl (80-97); MONOCYTES % (AUTO) 5.2 % (3-13); PLATELET COUNT 144 10^3/uL (150-450); RED BLOOD COUNT 2.74 10^6/uL (3.72-5.28); RED CELL DISTRIBUTION WIDTH 15.2 % (11.5-14.0); SEGMENTED NEUTROPHILS % (AUTO) 63.2 % (42-78); TOTAL CELLS COUNTED % (AUTO) 100 %; WHITE BLOOD COUNT 2.1 10^3/uL (4.0-10.5)
[2018-02-12 10:20] LABS: ALANINE AMINOTRANSFERASE 14 U/L (9-52); ALBUMIN 3.7 g/dL (3.5-5.0); ALKALINE PHOSPHATASE 93 U/L (38-126); ANION GAP 6 (5-19); ASPARTATE AMINO TRANSFERASE 20 U/L (14-36); BILIRUBIN,DIRECT 0.2 mg/dL (0.0-0.4); BILIRUBIN,TOTAL 0.3 mg/dL (0.2-1.3); BLOOD UREA NITROGEN 20 mg/dL (7-20); CARBON DIOXIDE 32 mmol/L (22-30); CHLORIDE 104 mmol/L (98-107); GLUCOSE 81 mg/dL (75-110); POTASSIUM 3.9 mmol/L (3.6-5.0); SODIUM 142.2 mmol/L (137-145); TOTAL PROTEIN 6.5 g/dL (6.3-8.2)
[2018-02-12] MEDS ORDERED: NORMAL SALINE IV PRN ×2 (11:21→11:28)
[2018-02-12] MEDS ORDERED: PACLITAXEL SEMI SYNTHETIC IV PRN (11:21)
[2018-02-12] MEDS ORDERED: CARBOPLATIN IV PRN (11:28)
[2018-02-12 13:25] VITALS: BP 100/50
== END 2018-02-12 14:39 | disposition home or self-care (01) ==
LOC: II 09:26 → 5TH 09:29 → II 14:39
PROVIDERS: ATTEND Internal Medicine
PROC: 3E0430M Introduction of Antineoplastic, Monoclonal Antibody, into Central Vein, Percutaneous Approach (ICD-10-PCS; principal; 2018-02-12)
PROC: 3E04305 Introduction of Other Antineoplastic into Central Vein, Percutaneous Approach (ICD-10-PCS; 2018-02-12)
PROC: 3E0433Z Introduction of Anti-inflammatory into Central Vein, Percutaneous Approach (ICD-10-PCS; 2018-02-12)
PROC: 3E043GC Introduction of Other Therapeutic Substance into Central Vein, Percutaneous Approach (ICD-10-PCS; 2018-02-12)
DX: Z51.11 Encounter for antineoplastic chemotherapy (principal); C76.0 Malignant neoplasm of head, face and neck
CPT/HCPCS: 36415; 83735; 85025; 80053; 96413; 96415; 96367; 96368; 96374; 96375; 96360; 96417; J1200; J9045; A9270; J7050; J9267; S0028; J1100; J2469; J9055; J3490

== ENCOUNTER 2018-02-14 11:59 | Outpatient (CLI) | payer MEDICARE ==
[~2018-02-14 11:59] MED LIST changes: -CARBOPLATIN IV PRN; -CETUXIMAB IV PRN; -CONTAINER EMPTY IV PRN; -DEXAMETHASONE SOD PHOSPHATE 10 MG in NORMAL SALINE 50 ML IV PRN; -DIPHENHYDRAMINE HCL 50 MG in NORMAL SALINE 50 ML IV PRN; -FAMOTIDINE/PF 20 MG in NORMAL SALINE 50 ML IV PRN; +FILGRASTIM-SNDZ 300 MCG/0.5 ML SYRINGE SUBCUT PRN; -NORMAL SALINE IV PRN; -PACLITAXEL SEMI SYNTHETIC IV PRN; -PALONOSETRON 0.25 MG/5 ML SDV IV PRN
[2018-02-14] MEDS: MAGNESIUM SULFATE 1 GM/D5W 100 ML IV PRN ×2 (12:39→13:59)
[2018-02-14 13:18] VITALS: BP 85/49
== END 2018-02-14 14:57 | disposition home or self-care (01) ==
LOC: II 11:59 → 5TH 13:09 → II 14:57
PROVIDERS: ATTEND Internal Medicine
PROC: 3E043GC Introduction of Other Therapeutic Substance into Central Vein, Percutaneous Approach (ICD-10-PCS; principal; 2018-02-14)
PROC: 3E01305 Introduction of Other Antineoplastic into Subcutaneous Tissue, Percutaneous Approach (ICD-10-PCS; 2018-02-14)
DX: C76.0 Malignant neoplasm of head, face and neck (principal); D70.2 Other drug-induced agranulocytosis; E83.42 Hypomagnesemia
CPT/HCPCS: 96367; 96372; J3475; Q5101; 96365; 96366

== ENCOUNTER 2018-02-18 10:04 | Outpatient (CLI) | payer MEDICARE ==
[~2018-02-18 10:04] MED LIST changes: -NORMAL SALINE 250 ML IV PRN
[2018-02-18 10:27] VITALS: BP 90/50
== END 2018-02-18 10:29 | disposition home or self-care (01) ==
LOC: II 10:04 → 5TH 10:09 → II 10:29
PROVIDERS: ATTEND Internal Medicine
DX: C76.0 Malignant neoplasm of head, face and neck (principal); D70.2 Other drug-induced agranulocytosis
CPT/HCPCS: 96372; Q5101

== ENCOUNTER 2018-02-19 10:00 | Outpatient (CLI) | payer MEDICARE ==
[2018-02-19] MEDS: FILGRASTIM-SNDZ 300 MCG/0.5 ML SYRINGE SUBCUT PRN (10:08)
[2018-02-19 10:12] VITALS: BP 118/58
== END 2018-02-19 10:13 | disposition home or self-care (01) ==
LOC: II 10:00 → 5TH 10:05 → II 10:13
PROVIDERS: ATTEND Internal Medicine
DX: C76.0 Malignant neoplasm of head, face and neck (principal); D70.2 Other drug-induced agranulocytosis
CPT/HCPCS: 96372; Q5101

== ENCOUNTER 2018-02-20 09:49 | Outpatient (CLI) | payer MEDICARE ==
[2018-02-20 10:11] VITALS: BP 90/50
[2018-02-20 10:38] LABS: HEMATOCRIT 29.3 % (36.0-47.0); HEMOGLOBIN 10.2 g/dL (12.0-15.5); MEAN CORPUSCULAR HGB CONC 34.8 g/dL (32.0-36.0); MEAN CORPUSCULAR VOLUME 101 fl (80-97); PLATELET COUNT 218 10^3/uL (150-450); RED BLOOD COUNT 2.91 10^6/uL (3.72-5.28); RED CELL DISTRIBUTION WIDTH 15.8 % (11.5-14.0); WHITE BLOOD COUNT 8.7 10^3/uL (4.0-10.5)
[2018-02-20 11:10] LABS: ABSOLUTE MONOCYTES # (MANUAL) 1.5 10^3/uL (0.1-1.4); ABSOLUTE NEUTROPHILS# (MANUAL) 6.3 10^3/uL (1.7-8.2); BAND NEUTROPHILS % (MANUAL) 8 % (3-5); BASOPHILS % (MANUAL) 0 % (0-2); EOSINOPHILS % (MANUAL) 0 % (0-6); LYMPHOCYTES % (MANUAL) 11 % (13-45); METAMYELOCYTES % (MANUAL) 1 % (0); MONOCYTES % (MANUAL) 17 % (3-13); SEGMENTED NEUTROPHILS % (MAN) 61 % (42-78); TOTAL CELLS COUNTED 100
[2018-02-20 11:11] LABS: MYELOCYTES % (MANUAL) 2 % (0)
[2018-02-20 11:12] LABS: ANISOCYTOSIS 1+; PLATELET COMMENT ADEQUATE; POLYCHROMASIA SLIGHT; TOXIC GRANULATION 2+; TOXIC VACUOLATION PRESENT
[2018-02-21 10:20] LABS: PATH REVIEW PATHOLOGIST REVIEWED
== END 2018-02-20 12:07 | disposition home or self-care (01) ==
LOC: II 09:49 → 5TH 09:51 → II 12:07
PROVIDERS: ATTEND Internal Medicine
DX: D70.2 Other drug-induced agranulocytosis (principal); C76.0 Malignant neoplasm of head, face and neck
CPT/HCPCS: 36415; 85025; 96401; Q5101; 96372

== ENCOUNTER 2018-02-26 09:16 | Outpatient (CLI) | payer MEDICARE ==
[~2018-02-26 09:16] MED LIST changes: +CARBOPLATIN IV PRN; +CETUXIMAB IV PRN; +CONTAINER EMPTY IV PRN; +DEXAMETHASONE SOD PHOSPHATE 10 MG in NORMAL SALINE 50 ML IV PRN; +DIPHENHYDRAMINE HCL 50 MG in NORMAL SALINE 50 ML IV PRN; +FAMOTIDINE/PF 20 MG in NORMAL SALINE 50 ML IV PRN; -FILGRASTIM-SNDZ 300 MCG/0.5 ML SYRINGE SUBCUT PRN; +NORMAL SALINE 250 ML IV PRN; +NORMAL SALINE IV PRN; +PACLITAXEL SEMI SYNTHETIC IV PRN; +PALONOSETRON 0.25 MG/5 ML SDV IV PRN
[2018-02-26 09:50] VITALS: BP 93/54
[2018-02-26] MEDS ORDERED: CONTAINER EMPTY IV PRN (11:06)
[2018-02-26] MEDS ORDERED: CETUXIMAB IV PRN (11:06)
[2018-02-26] MEDS ORDERED: CARBOPLATIN IV PRN (11:13)
[2018-02-26] MEDS ORDERED: NORMAL SALINE IV PRN ×3 (11:13→11:17)
[2018-02-26] MEDS ORDERED: PACLITAXEL SEMI SYNTHETIC IV PRN ×2 (11:15→11:17)
[2018-02-26] MEDS: MAGNESIUM SULFATE 1 GM/D5W 100 ML IV SCH ×2 (12:46→14:04)
== END 2018-02-26 17:08 | disposition home or self-care (01) ==
LOC: 5TH 09:16 → II 09:16
PROVIDERS: ATTEND Internal Medicine
PROC: 3E0 Administration, Physiological Systems and Anatomical Regions, Introduction (ICD-10-PCS; principal; 2018-02-26)
PROC: 3E04305 Introduction of Other Antineoplastic into Central Vein, Percutaneous Approach (ICD-10-PCS; 2018-02-26)
PROC: 3E0433Z Introduction of Anti-inflammatory into Central Vein, Percutaneous Approach (ICD-10-PCS; 2018-02-26)
PROC: 3E043GC Introduction of Other Therapeutic Substance into Central Vein, Percutaneous Approach (ICD-10-PCS; 2018-02-26)
DX: Z51.11 Encounter for antineoplastic chemotherapy (principal); C76.0 Malignant neoplasm of head, face and neck
CPT/HCPCS: 96413; 96366; 96367; 96375; 96417; J1200; J9045; A9270; J3475; J7050; J9267; S0028; J1100; J2469; J9055; 96415; J3490

== ENCOUNTER 2018-03-05 09:15 | Outpatient (CLI) | payer MEDICARE ==
[2018-03-05] MEDS: MAGNESIUM SULFATE 1 GM/D5W 100 ML IV SCH ×2 (12:07→13:00)
[2018-03-05 14:57] VITALS: BP 100/50
== END 2018-03-05 16:28 | disposition home or self-care (01) ==
LOC: II 09:15 → 5TH 09:16 → II 16:28
PROVIDERS: ATTEND Internal Medicine
PROC: 3E0430M Introduction of Antineoplastic, Monoclonal Antibody, into Central Vein, Percutaneous Approach (ICD-10-PCS; principal; 2018-03-05)
PROC: 3E04305 Introduction of Other Antineoplastic into Central Vein, Percutaneous Approach (ICD-10-PCS; 2018-03-05)
PROC: 3E0433Z Introduction of Anti-inflammatory into Central Vein, Percutaneous Approach (ICD-10-PCS; 2018-03-05)
PROC: 3E043GC Introduction of Other Therapeutic Substance into Central Vein, Percutaneous Approach (ICD-10-PCS; 2018-03-05)
DX: Z51.11 Encounter for antineoplastic chemotherapy (principal); C76.0 Malignant neoplasm of head, face and neck
CPT/HCPCS: 96411; 96413; 96415; 96366; 96367; 96374; 96375; 96361; 96417; J1200; J9045; A9270; J3475; J7050; J9267; S0028; J1100; J2469; J9055; 96360; 96365; J3490

== ENCOUNTER 2018-03-12 08:49 | Outpatient (CLI) | payer MEDICARE ==
[2018-03-12 09:18] VITALS: BP 93/51
[2018-03-12] MEDS: MAGNESIUM SULFATE 1 GM/D5W 100 ML IV SCH ×2 (09:32→14:35)
== END 2018-03-12 16:26 | disposition home or self-care (01) ==
LOC: II 08:49 → 5TH 08:55 → II 16:26
PROVIDERS: ATTEND Internal Medicine
DX: C76.0 Malignant neoplasm of head, face and neck (principal); Z51.11 Encounter for antineoplastic chemotherapy
CPT/HCPCS: 96413; 96415; 96367; 96375; J1200; J9045; A9270; J3475; J7050; J9267; S0028; J1100; J2469; J9055; J3490

== ENCOUNTER → 2018-03-18 | Outpatient (CLI) | payer MEDICARE ==
--- NOTE | 2018-03-18 15:56 | RADIOLOGY REPORT (SQ) ---
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 FLUOROSCOPY TIME: 38 seconds of fluoroscopy was used. 9 images saved to PACS. TECHNIQUE: Injection of contrast through existing catheter. Fluoroscopic spot films saved to PACS d emonstrating final catheter position. LIMITATIONS: None. FINDINGS: CONTRAST INJECTED: 50 mL Isovue-300 TUBE POSITION: The tip of the catheter is within the stomach. Contrast can be seen emptying out of th e stomach and into the small intestine. No evidence of extravasation or leak. IMPRESSION: THE CATHETER APPEARS TO BE IN SATISFACTORY POSITION. NO EVIDENCE OF GASTRIC OUTLET OBST RUCTION. COMMENT: Findings were called to Dr. Daigle on 03/18/2018 at 1545 hours. Quality ID 145: Final reports for procedures using fluoroscopy that document radiation exposure rosy estrellita, or exposure time and number of fluorographic images (if radiation exposure indices are not avail able) TECHNICAL DOCUMENTATION: JOB ID: [id number] [employer]- All Rights Reserved Reading location - IP/workstation name: [email or web address] [id number]
--- NOTE | 2018-03-18 15:56 | RADIOLOGY REPORT (SQ) ---
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 FLUOROSCOPY TIME: 38 seconds of fluoroscopy was used. 9 images saved to PACS. TECHNIQUE: Injection of contrast through existing catheter. Fluoroscopic spot films saved to PACS d emonstrating final catheter position. LIMITATIONS: None. FINDINGS: CONTRAST INJECTED: 50 mL Isovue-300 TUBE POSITION: The tip of the catheter is within the stomach. Contrast can be seen emptying out of th e stomach and into the small intestine. No evidence of extravasation or leak. IMPRESSION: THE CATHETER APPEARS TO BE IN SATISFACTORY POSITION. NO EVIDENCE OF GASTRIC OUTLET OBST RUCTION. COMMENT: Findings were called to Dr. Daigle on 03/18/2018 at 1545 hours. Quality ID 145: Final reports for procedures using fluoroscopy that document radiation exposure rosy estrellita, or exposure time and number of fluorographic images (if radiation exposure indices are not avail able) TECHNICAL DOCUMENTATION: JOB ID: [id number] [employer]- All Rights Reserved Reading location - IP/workstation name: [email or web address] [id number]
== END ==
LOC: RAD 15:16
PROVIDERS: ATTEND Surgery
DX: C14.0 Malignant neoplasm of pharynx, unspecified (principal); Z93.1 Gastrostomy status
CPT/HCPCS: 49465; 76000

== ENCOUNTER 2018-03-20 09:27 | Day surgery (SDC) | payer MEDICARE ==
[2018-03-20] MEDS ORDERED: DIPHENHYDRAMINE HCL 50 MG/ML VIAL ONE (09:46)
[2018-03-20] MEDS ORDERED: ONDANSETRON HCL INJ/PF 4 MG/2 ML SDV ONE (09:46)
[2018-03-20] MEDS ORDERED: FENTANYL CITRATE INJ/PF 100 MCG/2 ML AMPUL ONE (09:46)
[2018-03-20] MEDS ORDERED: FLUMAZENIL INJ 0.5 MG/5 ML VIAL ONE (09:47)
[2018-03-20] MEDS ORDERED: GLUCAGON,HUMAN RECOMB 1 MG INJ ONE (09:47)
[2018-03-20] MEDS ORDERED: EPINEPHRINE INJ 1 MG/10 ML DISP.SYRIN ONE (09:47)
[2018-03-20] MEDS ORDERED: NALOXONE HCL INJ/PF 0.4 MG/1 ML SDV ONE (09:47)
[2018-03-20] MEDS: MIDAZOLAM 2 MG/2 ML INJ ONE ×2 (10:19→10:24)
[2018-03-20] MEDS ORDERED: LIDOCAINE 2% JELLY 5 ML TUBE ONE (10:21)
[2018-03-20] MEDS ORDERED: LIDOCAINE 2% INJ (20 MG/ML) 20 ML MDV ONE (10:30)
--- NOTE | 2018-03-20 10:55 | Discharge Summary ---
Discharge Summary (SDC) - Discharge Final Diagnosis: Carcinoma of the neck; dysfunctional feeding tube Date of Surgery: 03/20/18 Discharge Date: 03/20/18 Condition: Fair Treatment or Instructions: Patient instructed on new replacement 24 Burkinan feeding tube; emphasized laying in the right lateral decubitus position during feedings to facilitate gastric emptying. Anticipate cauterized granulation tissue to slough; Patient can follow-up with [facility] on a as needed basis Referrals: JUDE GARZON MD [Primary Care Provider] - Discharge Diet: As Tolerated Discharge Activity: Activity As Tolerated Report the Following to Your Physician Immediately: Shortness of Breath, Increase in Pain, Fever over 101 Degrees
--- NOTE | 2018-03-20 10:59 | Operative Report ---
Operative Report DATE OF SURGERY: 03/20/18 PREOPERATIVE DIAGNOSIS: 1. Head and neck carcinoma. 2. Malfunctioning feeding tube POSTOPERATIVE DIAGNOSIS: Same OPERATION: 1. Replacement of existing PEG tube with 24 Congolese balloon secured feeding tube. 2. Cauterization of granulation tissue at feeding tube exit site SURGEON: JAI RIGGINS ANESTHESIA: Moderate Sedation TISSUE REMOVED OR ALTERED: None COMPLICATIONS: None ESTIMATED BLOOD LOSS: Scant INTRAOPERATIVE FINDINGS: See below PROCEDURE: The patient was brought from the fifth floor [facility] area to the endoscopy suite where light sedation with Versed and fentanyl initiated. Surgical plan surgical timeout conducted. The patient was laid in a semirecumbent position. The existing Ponsky pullout type feeding tube which appeared to be a 20 Congolese was removed with deliberate traction. There was some bleeding at the exit site. The skin around the exit site was prepped with Betadine and then anesthetizedwith 2% lidocaine and a 25-gauge needle. I used for tips of silver nitrate to cauterize the pre-existing granulation tissue at the exit site. There was some erythema around the perimeter of intact skin but no infection. Because we did not have a larger prolapsed feeding tube, I elected to place a 24 Congolese Bard balloon secured feeding tube. The package was opened, tip lubricated and inserted easily into the patient's stomach. The balloon was insufflated with 6 cc of water. The exterior elbow bolster was brought down into position but not in contact with skin. 4 x 4 applied. Patient tolerated procedure well. She was instructed on laying in the right lateral decubitus position during tube feeds in the future to minimize drainage around the feeding tube. She will follow-up with us at [facility] on a as needed basis.
[2018-03-20 11:51] VITALS: BP 109/61
== END 2018-03-20 11:38 | disposition home or self-care (01) ==
LOC: END 09:27
PROVIDERS: ATTEND Surgery
DX: K94.23 Gastrostomy malfunction (principal); Y83.3 Surgical operation with formation of external stoma as the cause of abnormal reaction of the patient, or of later complication, without mention of misadventure at the time of the procedure; Y73.3 Surgical instruments, materials and gastroenterology and urology devices (including sutures) associated with adverse incidents; L92.8 Other granulomatous disorders of the skin and subcutaneous tissue; C49.0 Malignant neoplasm of connective and soft tissue of head, face and neck; E78.00 Pure hypercholesterolemia, unspecified; E87.6 Hypokalemia; E05.90 Thyrotoxicosis, unspecified without thyrotoxic crisis or storm; K21.9 Gastro-esophageal reflux disease without esophagitis; I95.9 Hypotension, unspecified; C14.0 Malignant neoplasm of pharynx, unspecified; F32.9 Major depressive disorder, single episode, unspecified; Z87.891 Personal history of nicotine dependence; Z79.899 Other long term (current) drug therapy
CPT/HCPCS: 43762; 17250; J2250; J3490; J3010; J0171; J1200; J1610; J2310; J2405

== ENCOUNTER → 2018-03-24 | Outpatient (CLI) | payer MEDICARE ==
--- NOTE | 2018-03-24 08:43 | RADIOLOGY REPORT (SQ) ---
EXAM DESCRIPTION: CT CHEST WITH COMPLETED DATE/TIME: 03/24/2018 8:26 am REASON FOR STUDY: MAL MERCEDEZ OF HEAD FACE AND NECK C76.0 MALIGNANT NEOPLASM OF HEAD, FACE AND NECK R10 .9 UNSPECIFIED ABDOMINAL PAIN COMPARISON: PET-CT 09/01/2017 CT neck chest abdomen pelvis 10/11/2017, 12/20/2017 TECHNIQUE: CT scan of the chest performed using helical scanning technique with dynamic intravenous contrast injection. Images reviewed with lung, soft tissue and bone windows. Reconstructed coronal and sagittal MPR and MIP images reviewed. All images stored on PACS. All CT scanners at this facility use dose modulation, iterative reconstruction, and/or weight based d osing when appropriate to reduce radiation dose to as low as reasonably achievable (ALARA). [facility]: Dose Right [facility]: CareDose [facility]: Dose Right [facility]: Teradose 4D [facility]: Impactia CONTRAST TYPE AND DOSE: 59 mL of IV Omnipaque 350 RENAL FUNCTION: Creatinine 0.9 RADIATION DOSE: 26 mGy . LIMITATIONS: None. FINDINGS: LUNGS AND PLEURA: Obstructive lung disease. Right apical scarring. No worrisome pulmonar y nodules. No pleural effusion or pneumothorax. HILAR AND MEDIASTINAL STRUCTURES: No identified masses or abnormal nodes. HEART AND VASCULAR STRUCTURES: No aneurysm or dissection. No central pulmonary emboli. No pericardi al effusion. HARDWARE: Left-sided permanent central line tip superior vena cava. Metallic prosthesis at the [employer] for treatment of reflux UPPER ABDOMEN: Gastrostomy tube tip in the stomach. THYROID AND OTHER SOFT TISSUES: No masses. No adenopathy. BONES: No significant finding. OTHER: No other significant finding. IMPRESSION: No CT evidence of metastatic disease to the chest TECHNICAL DOCUMENTATION: JOB ID: [id number] Quality ID # 436: Final reports with documentation of one or more dose reduction techniques (e.g., Au tomated exposure control, adjustment of the mA and/or kV according to patient size, use of iterative reconstruction technique) 2010 [employer]- All Rights Reserved Reading location - IP/workstation name: [email or web address]
--- NOTE | 2018-03-24 08:45 | RADIOLOGY REPORT (SQ) ---
EXAM DESCRIPTION: CT ABD/PELVIS WITH IV ONLY COMPLETED DATE/TIME: 03/24/2018 8:27 am REASON FOR STUDY: ABDOMINAL PAIN C76.0 MALIGNANT NEOPLASM OF HEAD, FACE AND NECK R10.9 UNSPECIFIED ABDOMINAL PAIN COMPARISON: PET-CT 09/01/2017 CT neck chest abdomen and pelvis 10/11/2017, 12/20/2017 TECHNIQUE: CT scan of the abdomen and pelvis performed using helical scanning technique with dynamic intravenous contrast injection. Patient drank oral contrast. Images reviewed with lung, soft tissue , and bone windows. Reconstructed coronal and sagittal MPR images reviewed. Delayed images for evalua tion of the urinary system also acquired. All images stored on PACS. All CT scanners at this facility use dose modulation, iterative reconstruction, and/or weight based d osing when appropriate to reduce radiation dose to as low as reasonably achievable (ALARA). [facility]: Dose Right [facility]: CareDose [facility]: Dose Right [facility]: Teradose 4D [facility]: Ebix CONTRAST TYPE AND DOSE: contrast/concentration: Isovue 350.00 mg/ml; Total Contrast Delivered: 59.0 ml; Total Saline Delivered: 65.0 ml RENAL FUNCTION: Creatinine 0.9 RADIATION DOSE: See combined dose in chest CT report. LIMITATIONS: None. FINDINGS: LOWER CHEST: No significant findings. No nodules or infiltrates. LIVER: Normal size. No masses. No dilated ducts. SPLEEN: Normal size. No focal lesions. PANCREAS: No masses. No significant calcifications. No adjacent inflammation or peripancreatic fluid collections. Pancreatic duct not dilated. GALLBLADDER: No identified stones by CT criteria. No inflammatory changes to suggest cholecystitis. ADRENAL GLANDS: No significant masses or asymmetry. RIGHT KIDNEY AND URETER: No solid masses. No significant calcifications. No hydronephrosis or hyd roureter. LEFT KIDNEY AND URETER: No solid masses. No significant calcifications. No hydronephrosis or hydr oureter. AORTA AND VESSELS: No aneurysm. No dissection. Renal arteries, SMA, celiac without stenosis. RETROPERITONEUM: No retroperitoneal adenopathy, hemorrhage or masses. BOWEL AND PERITONEAL CAVITY: Gastrostomy tube tip in the stomach. Oral contrast throughout the gastr ointestinal tract without CT evidence of bowel obstruction. No free intraperitoneal air or fluid. S cattered colonic diverticuli without CT signs of acute diverticulitis APPENDIX: Normal. PELVIS: No mass. No free fluid. Normal bladder. ABDOMINAL WALL: No masses. No hernias. BONES: Degenerative disc changes at L3-4 and L4-5. OTHER: Metallic prosthesis at the GE junction for treatment of reflux. IMPRESSION: No CT evidence of metastatic disease to the abdomen or pelvis TECHNICAL DOCUMENTATION: JOB ID: [id number] Quality ID # 436: Final reports with documentation of one or more dose reduction techniques (e.g., Au tomated exposure control, adjustment of the mA and/or kV according to patient size, use of iterative reconstruction technique) 2010 [employer]- All Rights Reserved Reading location - IP/workstation name: [email or web address]
--- NOTE | 2018-03-24 08:54 | RADIOLOGY REPORT (SQ) ---
EXAM DESCRIPTION: CT SOFT TISSUE NECK WITH COMPLETED DATE/TIME: 03/24/2018 8:26 am REASON FOR STUDY: MAL MERCEDEZ OF HEAD FACE AND NECK C76.0 MALIGNANT NEOPLASM OF HEAD, FACE AND NECK R10 .9 UNSPECIFIED ABDOMINAL PAIN COMPARISON: PET-CT 09/01/2017 CT neck chest abdomen pelvis 10/11/2017, 12/20/2017 TECHNIQUE: Post IV contrasted scanning from skull base through lung apices with review of bone, soft tissue and lung windows. Reconstructed coronal and sagittal MPR images reviewed. All images stored on PACS. All CT scanners at this facility use dose modulation, iterative reconstruction, and/or weight based d osing when appropriate to reduce radiation dose to as low as reasonably achievable (ALARA). [facility]: Dose Right [facility]: CareDose [facility]: Dose Right [facility]: Teradose 4D [facility]: Geosophic CONTRAST TYPE AND DOSE: 59 mL of IV Omnipaque 350- low osmolar. RENAL FUNCTION: Creatinine 0.9 RADIATION DOSE: 12.3 mGy . LIMITATIONS: None. FINDINGS: SKULL BASE: Inferior brain parenchyma in the field of view unremarkable MAJOR SALIVARY GLANDS: Bilateral parotid glands are unremarkable. Atrophy right submandibular gland. Surgically resected left submandibular gland LYMPHADENOPATHY: No adenopathy. MUCOSAL MASSES OR ASYMMETRY: No findings worrisome for recurrent malignancy at the left tongue base/ sub mandibular triangle. Patient has a reconstructive flap with multiple surgical clips and fatty de nsity soft tissue at the left tongue base protruding into the left vallecula on sagittal image 60 and axial image 44. LARYNX/CORDS: Epiglottis is replaced by a fatty soft tissue flap at the left lung base. Remainder of the supraglottic larynx exhibits diffuse mucous membrane edema, with nodular swelling of the vocal c ords at the arytenoid attachments. These findings are similar compared to prior CT soft tissue neck exams VASCULAR STRUCTURES: The major vessels are patent. LUNG APICES: Clear. BONES: Degenerative disc space loss of height at C5-6 and C6-7 THYROID: Normal size. No masses. PARANASAL SINUSES: Clear. OTHER: No other significant finding. IMPRESSION: Post therapeutic changes of the left floor of mouth. No change from prior CT soft tissu e neck exams TECHNICAL DOCUMENTATION: JOB ID: [id number] Quality ID # 436: Final reports with documentation of one or more dose reduction techniques (e.g., Au tomated exposure control, adjustment of the mA and/or kV according to patient size, use of iterative reconstruction technique) 2010 [email or web address]- All Rights Reserved Reading location - IP/workstation name: [email or web address]
== END ==
LOC: RAD 07:58
PROVIDERS: ATTEND Internal Medicine
DX: C76.0 Malignant neoplasm of head, face and neck (principal); R10.9 Unspecified abdominal pain; J44.9 Chronic obstructive pulmonary disease, unspecified
CPT/HCPCS: 70491; 71260; 74177; 82565

== ENCOUNTER 2018-03-26 09:20 | Outpatient (CLI) | payer MEDICARE ==
[~2018-03-26 09:20] MED LIST changes: -DEXAMETHASONE SOD PHOSPHATE 10 MG in NORMAL SALINE 50 ML IV PRN; -FAMOTIDINE/PF 20 MG in NORMAL SALINE 50 ML IV PRN; -PALONOSETRON 0.25 MG/5 ML SDV IV PRN
[2018-03-26] MEDS: MAGNESIUM SULFATE 1 GM/D5W 100 ML IV PRN ×2 (10:09→11:08)
[2018-03-26] MEDS ORDERED: CETUXIMAB IV PRN (10:30)
[2018-03-26] MEDS ORDERED: CONTAINER EMPTY IV PRN (10:30)
[2018-03-26 10:59] VITALS: BP 90/50
== END 2018-03-26 14:36 | disposition home or self-care (01) ==
LOC: II 09:20 → 5TH 09:55 → II 14:36
PROVIDERS: ATTEND Internal Medicine
PROC: 3E04305 Introduction of Other Antineoplastic into Central Vein, Percutaneous Approach (ICD-10-PCS; principal; 2018-03-26)
PROC: 3E043GC Introduction of Other Therapeutic Substance into Central Vein, Percutaneous Approach (ICD-10-PCS; 2018-03-26)
DX: Z51.11 Encounter for antineoplastic chemotherapy (principal); C76.0 Malignant neoplasm of head, face and neck
CPT/HCPCS: 96413; 96415; 96365; 96366; 96367; 96374; 96360; J1200; A9270; J3475; J9055; J3490

== ENCOUNTER 2018-04-09 09:10 | Outpatient (CLI) | payer MEDICARE, OTHER ==
[~2018-04-09 09:10] MED LIST changes: -CARBOPLATIN IV PRN; -CETUXIMAB IV PRN; -CONTAINER EMPTY IV PRN; +DIPHENHYDRAMINE HCL 50 MG in NORMAL SALINE 25 ML IV PRN; -NORMAL SALINE IV PRN; -PACLITAXEL SEMI SYNTHETIC IV PRN
[2018-04-09] MEDS ORDERED: CONTAINER EMPTY IV PRN (09:18)
[2018-04-09] MEDS ORDERED: CETUXIMAB IV PRN (09:18)
[2018-04-09 10:11] VITALS: BP 99/50
[2018-04-09] MEDS: MAGNESIUM SULFATE 1 GM/D5W 100 ML IV SCH ×2 (11:36→12:32)
== END 2018-04-09 13:49 | disposition home or self-care (01) ==
LOC: II 09:10 → 5TH 09:16 → II 13:49
PROVIDERS: ATTEND Internal Medicine
PROC: 3E0430M Introduction of Antineoplastic, Monoclonal Antibody, into Central Vein, Percutaneous Approach (ICD-10-PCS; principal; 2018-04-09)
PROC: 3E043GC Introduction of Other Therapeutic Substance into Central Vein, Percutaneous Approach (ICD-10-PCS; 2018-04-09)
DX: Z51.11 Encounter for antineoplastic chemotherapy (principal); C76.0 Malignant neoplasm of head, face and neck
CPT/HCPCS: 96413; 96365; 96366; 96367; 96374; 96360; J1200; A9270; J3475; J9055; J3490; J7050

== ENCOUNTER 2018-04-23 09:27 | Outpatient (CLI) | payer MEDICARE, OTHER ==
[~2018-04-23 09:27] MED LIST changes: +CETUXIMAB IV PRN; +CONTAINER EMPTY IV PRN; -DIPHENHYDRAMINE HCL 50 MG in NORMAL SALINE 25 ML IV PRN
[2018-04-23 10:10] VITALS: BP 95/56
== END 2018-04-23 13:23 | disposition home or self-care (01) ==
LOC: II 09:27 → 5TH 09:57 → II 13:23
PROVIDERS: ATTEND Internal Medicine
PROC: 3E0430M Introduction of Antineoplastic, Monoclonal Antibody, into Central Vein, Percutaneous Approach (ICD-10-PCS; principal; 2018-04-23)
PROC: 3E043GC Introduction of Other Therapeutic Substance into Central Vein, Percutaneous Approach (ICD-10-PCS; 2018-04-23)
DX: Z51.11 Encounter for antineoplastic chemotherapy (principal); C76.0 Malignant neoplasm of head, face and neck
CPT/HCPCS: 96413; 96367; J1200; A9270; J9055; J3490

== ENCOUNTER → 2018-04-24 | Outpatient (CLI) | payer MEDICARE, OTHER ==
--- NOTE | 2018-04-24 12:51 | EKG REPORT ---
SEVERITY:- NORMAL ECG - SINUS RHYTHM : Confirmed by: Nilesh Barry MD 24-Apr-2018 12:51:19
--- NOTE | 2018-04-24 13:05 | RADIOLOGY REPORT (SQ) ---
EXAM DESCRIPTION: CHEST PA/LATERAL COMPLETED DATE/TIME: 04/24/2018 11:09 am REASON FOR STUDY: ENCOUNTER FOR PREPROCEDURAL RESPIRATORY EXAMINATION COMPARISON: None. EXAM PARAMETERS: NUMBER OF VIEWS: two views TECHNIQUE: Digital Frontal and Lateral radiographic views of the chest acquired. RADIATION DOSE: NA LIMITATIONS: none FINDINGS: LUNGS AND PLEURA: No opacities, masses or pneumothorax. No pleural effusion. MEDIASTINUM AND HILAR STRUCTURES: No masses or contour abnormalities. HEART AND VASCULAR STRUCTURES: Heart normal size. No evidence for failure. BONES: No acute findings. HARDWARE: Venous access catheter tip SVC. OTHER: No other significant finding. IMPRESSION: NO SIGNIFICANT RADIOGRAPHIC FINDING IN THE CHEST. TECHNICAL DOCUMENTATION: JOB ID: [id number] [employer]- All Rights Reserved Reading location - IP/workstation name: [email or web address]
== END ==
LOC: OD 10:34
PROVIDERS: ATTEND Otolaryngology
DX: Z01.810 Encounter for preprocedural cardiovascular examination (principal); Z01.812 Encounter for preprocedural laboratory examination; Z01.818 Encounter for other preprocedural examination; C10.9 Malignant neoplasm of oropharynx, unspecified
CPT/HCPCS: 71046; 93005; 93010

== ENCOUNTER 2018-05-07 08:59 | Outpatient (CLI) | payer MEDICARE, OTHER ==
[2018-05-07 10:13] VITALS: BP 88/58
[2018-05-07] MEDS: MAGNESIUM SULFATE 1 GM/D5W 100 ML IV PRN ×2 (10:18→12:38)
== END 2018-05-07 14:01 | disposition home or self-care (01) ==
LOC: II 08:59 → 5TH 12:32 → II 14:01
PROVIDERS: ATTEND Internal Medicine
PROC: 3E0430M Introduction of Antineoplastic, Monoclonal Antibody, into Central Vein, Percutaneous Approach (ICD-10-PCS; principal; 2018-05-07)
PROC: 3E043GC Introduction of Other Therapeutic Substance into Central Vein, Percutaneous Approach (ICD-10-PCS; 2018-05-07)
DX: Z51.11 Encounter for antineoplastic chemotherapy (principal); C76.0 Malignant neoplasm of head, face and neck
CPT/HCPCS: 96413; 96365; 96366; J1200; A9270; J3475; J9055; 96367; J3490

== ENCOUNTER → 2018-05-13 | Outpatient (CLI) | payer MEDICARE, OTHER ==
--- NOTE | 2018-05-13 09:59 | RADIOLOGY REPORT (SQ) ---
EXAM DESCRIPTION: CT SOFT TISSUE NECK WITH COMPLETED DATE/TIME: 05/13/2018 9:11 am REASON FOR STUDY: MALIGNANT NEOPLASM OF HEAD, FACE AND NECK (C76.0), ABD PAIN (R10.9) C76.0 MALIGNA NT NEOPLASM OF HEAD, FACE AND NECK R10.9 UNSPECIFIED ABDOMINAL PAIN COMPARISON: CT soft tissue neck 03/24/2018, 12/20/2017, 10/11/2017 TECHNIQUE: Post IV contrasted scanning from skull base through lung apices with review of bone, soft tissue and lung windows. Reconstructed coronal and sagittal MPR images reviewed. All images stored on PACS. All CT scanners at this facility use dose modulation, iterative reconstruction, and/or weight based d osing when appropriate to reduce radiation dose to as low as reasonably achievable (ALARA). [facility]: Dose Right [facility]: CareDose [facility]: Dose Right [facility]: Teradose 4D [facility]: [employer] CONTRAST TYPE AND DOSE: 58 mL of IV Omnipaque 350- low osmolar. RENAL FUNCTION: GFR > 60. RADIATION DOSE: 12.5 mGy LIMITATIONS: None. FINDINGS: SKULL BASE: Inferior brain parenchyma unremarkable MAJOR SALIVARY GLANDS: Resected left submandibular gland along with the left tongue base/ floor of mo uth tumor LYMPHADENOPATHY: No adenopathy. MUCOSAL MASSES OR ASYMMETRY: Bulging of fatty tissue into the hypopharynx along the reconstruction fl ap, at the floor of mouth. Mild fatty denervation change left tongue LARYNX/CORDS: No abnormal findings. VASCULAR STRUCTURES: The major vessels are patent. Atherosclerotic changes at the carotid bifurcatio ns without flow significant stenosis. LUNG APICES: Obstructive lung disease BONES: Old anterior alveolar ridge mandibular plate. Multilevel degenerative disc changes most prono unced at C5-6 and C6-7 THYROID: Normal size. No masses. PARANASAL SINUSES: Opacified right frontal sinus from chronic sinusitis OTHER: No other significant finding. 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
--- NOTE | 2018-05-13 10:18 | RADIOLOGY REPORT (SQ) ---
EXAM DESCRIPTION: CT CHEST WITH; CT ABD/PELVIS WITH IV ONLY COMPLETED DATE/TIME: 05/13/2018 9:11 am REASON FOR STUDY: MALIGNANT NEOPLASM OF HEAD, FACE AND NECK (C76.0) C76.0 MALIGNANT NEOPLASM OF HEA D, FACE AND NECK R10.9 UNSPECIFIED ABDOMINAL PAIN COMPARISON: PET-CT 09/01/2017 CT chest abdomen pelvis 10/11/2017, 12/20/2017, 03/24/2018 CONTRAST TYPE AND DOSE: contrast/concentration: Isovue 350.00 mg/ml; Total Contrast Delivered: 58.0 ml; Total Saline Delivered: 65.0 ml RENAL FUNCTION: GFR > 60. TECHNIQUE: CT scan of the chest performed using helical scanning technique with dynamic intravenous contrast injection. Images reviewed with lung, soft tissue and bone windows. Reconstructed coronal a nd sagittal MPR images reviewed. All images stored on PACS. CT scan of the abdomen and pelvis performed with intravenous and without oral contrastusing helical s lori technique with dynamic intravenous contrast injection. Images reviewed with lung, soft tissu e and bone windows. Reconstructed coronal and sagittal MPR images reviewed. Delayed images for eval uation of the urinary system also acquired and evaluated. All images stored on PACS. All CT scanners at this facility use dose modulation, iterative reconstruction, and/or weight based d osing when appropriate to reduce radiation dose to as low as reasonably achievable (ALARA). [facility]: Dose Right [facility]: CareDose [facility]: Dose Right [facility]: Teradose 4D [facility]: [employer] RADIATION DOSE: 11 mGy . LIMITATIONS: None. FINDINGS: CHEST: LUNGS AND PLEURA: In the left posterior costophrenic sulcus, there are 2 new smooth round noncalcifie d subpleural nodules each measuring about 5 mm in size. These are best shown on coronal reconstructi on image 62, and axial image 100. These are abnormal but nonspecific. Continued imaging surveillanc e is recommended. Remainder of the lungs demonstrate diffuse changes of obstructive lung disease. No pleural effusion or pneumothorax. Airways are patent. HILAR AND MEDIASTINAL STRUCTURES: No identified masses or abnormal nodes. HEART AND VASCULAR STRUCTURES: No aneurysm or dissection. No central pulmonary emboli. No pericardi al effusion. HARDWARE: Left-sided permanent central line tip superior vena cava, metallic prosthesis at the [employer] BONES: No significant finding. OTHER: No other significant finding. ABDOMEN AND PELVIS: LIVER: Normal size. No masses. No dilated ducts. SPLEEN: Normal size. No focal lesions. PANCREAS: No masses. No significant calcifications. No adjacent inflammation or peripancreatic fluid collections. Pancreatic duct not dilated. GALLBLADDER: No identified stones by CT criteria. No inflammatory changes to suggest cholecystitis. ADRENAL GLANDS: No significant masses or asymmetry. RIGHT KIDNEY AND URETER: No solid masses. No significant calcification. No hydronephrosis or hydroure ter. LEFT KIDNEY AND URETER: No solid masses. No significant calcification. No hydronephrosis or hydrouret er. AORTA AND VESSELS: No aneurysm. No dissection. Renal arteries, SMA, celiac without stenosis. RETROPERITONEUM: No retroperitoneal adenopathy, hemorrhage or masses. BOWEL AND PERITONEAL CAVITY: Gastrostomy tube tip in the stomach. No CT evidence of bowel obstructio n or free intraperitoneal air or fluid. Descending and sigmoid colon diverticuli without CT signs of acute diverticulitis APPENDIX: Normal. ABDOMINAL WALL: No masses. No hernias. PELVIS: No mass or free fluid. Normal bladder. Normal size female pelvic organs. BONES: No significant or acute findings. OTHER: No other significant finding. IMPRESSION: 5 mm subpleural noncalcified nodules in the left posterior costophrenic sulcus, new comp ared to prior studies. This could be postinflammatory rather than neoplastic. Consider follow-up as per Fleischner criteria Otherwise stable CT exam of the chest abdomen pelvis. COMMENT: FLEISCHNER CRITERIA FOR FOLLOW-UP OF PULMONARY NODULES Incidentally detected new nodules in persons 35 or older. HIGH RISK: History of smoking or other known risk factors. <6mm single solid nodule: LOW RISK: no routine followup. HIGH RISK: optional CT 12 mo. TECHNICAL DOCUMENTATION: JOB ID: [id number] Quality ID # 436: Final reports with documentation of one or more dose reduction techniques (e.g., Au tomated exposure control, adjustment of the mA and/or kV according to patient size, use of iterative reconstruction technique) 2010 [employer]- All Rights Reserved Reading location - IP/workstation name: [email or web address]
== END ==
LOC: RAD 08:30
PROVIDERS: ATTEND Internal Medicine
DX: C76.0 Malignant neoplasm of head, face and neck (principal); R10.9 Unspecified abdominal pain; R10.2 Pelvic and perineal pain; J44.9 Chronic obstructive pulmonary disease, unspecified; R91.8 Other nonspecific abnormal finding of lung field
CPT/HCPCS: 70491; 71260; 74177; 82565

== ENCOUNTER 2018-05-21 09:03 | Outpatient (CLI) | payer MEDICARE, OTHER ==
[2018-05-21 09:32] VITALS: BP 105/57
[2018-05-21 09:36] LABS: ABSOLUTE EOSINOPHILS # (AUTO) 0.2 10^3/uL (0.0-0.6); ABSOLUTE LYMPHOCYTES (AUTO) 0.7 10^3/uL (0.5-4.7); ABSOLUTE MONOCYTES (AUTO) 0.6 10^3/uL (0.1-1.4); ABSOLUTE NEUT (AUTO) 3.7 10^3/uL (1.7-8.2); BASOPHILS % (AUTO) 0.3 % (0-2); EOSINOPHILS % (AUTO) 3.7 % (0-6); HEMATOCRIT 29.8 % (36.0-47.0); HEMOGLOBIN 10.4 g/dL (12.0-15.5); LYMPHOCYTES % (AUTO) 12.8 % (13-45); MEAN CORPUSCULAR VOLUME 100 fl (80-97); PLATELET COUNT 197 10^3/uL (150-450); RED BLOOD COUNT 2.98 10^6/uL (3.72-5.28); RED CELL DISTRIBUTION WIDTH 13.5 % (11.5-14.0); SEGMENTED NEUTROPHILS % (AUTO) 72.2 % (42-78); TOTAL CELLS COUNTED % (AUTO) 100 %; WHITE BLOOD COUNT 5.1 10^3/uL (4.0-10.5)
[2018-05-21 09:58] LABS: ALANINE AMINOTRANSFERASE 21 U/L (9-52); ALBUMIN 3.6 g/dL (3.5-5.0); ALKALINE PHOSPHATASE 132 U/L (38-126); ASPARTATE AMINO TRANSFERASE 23 U/L (14-36); BILIRUBIN,TOTAL 0.3 mg/dL (0.2-1.3); BLOOD UREA NITROGEN 21 mg/dL (7-20); CALCIUM 9.4 mg/dL (8.4-10.2); CHLORIDE 106 mmol/L (98-107); GLUCOSE 102 mg/dL (75-110); POTASSIUM 3.8 mmol/L (3.6-5.0); TOTAL PROTEIN 6.5 g/dL (6.3-8.2)
[2018-05-21 10:04] LABS: ANION GAP 5 (5-19); CARBON DIOXIDE 32 mmol/L (22-30); SODIUM 142.6 mmol/L (137-145)
[2018-05-21] MEDS: MAGNESIUM SULFATE 1 GM/D5W 100 ML IV SCH ×2 (11:34→12:29)
== END 2018-05-21 14:06 | disposition home or self-care (01) ==
LOC: II 09:03 → 5TH 09:05 → II 14:06
PROVIDERS: ATTEND Internal Medicine
PROC: 3E0430M Introduction of Antineoplastic, Monoclonal Antibody, into Central Vein, Percutaneous Approach (ICD-10-PCS; principal; 2018-05-21)
PROC: 3E043GC Introduction of Other Therapeutic Substance into Central Vein, Percutaneous Approach (ICD-10-PCS; 2018-05-21)
DX: Z51.11 Encounter for antineoplastic chemotherapy (principal); C76.0 Malignant neoplasm of head, face and neck; E83.42 Hypomagnesemia
CPT/HCPCS: 36415; 83735; 85025; 80053; 96413; 96365; 96366; 96367; 96374; 96360; J1200; A9270; J3475; J9055; 96375; J3490

== ENCOUNTER → 2018-06-09 | Outpatient (CLI) | payer MEDICARE, OTHER ==
--- NOTE | 2018-06-09 16:18 | RADIOLOGY REPORT (SQ) ---
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 TECHNIQUE: Injection of contrast through existing catheter. Fluoroscopic spot films saved to PACS d emonstrating final catheter position. LIMITATIONS: None. FINDINGS: CONTRAST INJECTED: 50 mL of Omnipaque 300 was injected view the patient's pre-existing gas trostomy tube. TUBE POSITION: The tip of the catheter is within the stomach. Contrast can be seen emptying out of th e stomach and into the small intestine. No gastroesophageal reflux. Radiopaque bead prosthesis at t he GE junction. IMPRESSION: GASTROSTOMY TUBE APPEARS TO BE IN SATISFACTORY POSITION. COMMENT: Quality ID [id number]: Final reports for procedures using fluoroscopy that document radiation exp osure indices, or exposure time and number of fluorographic images (if radiation exposure indices are not available) TECHNICAL DOCUMENTATION: JOB ID: [id number] 0078 [employer]- All Rights Reserved Reading location - IP/workstation name: [email or web address]
== END ==
LOC: RAD 15:05
PROVIDERS: ATTEND Surgery
DX: C49.0 Malignant neoplasm of connective and soft tissue of head, face and neck (principal); Z93.1 Gastrostomy status
CPT/HCPCS: 49465; 76000

== ENCOUNTER 2018-07-24 09:25 | Outpatient (CLI) | payer MEDICARE, OTHER ==
[~2018-07-24 09:25] MED LIST changes: +NORMAL SALINE 250 ML @ KVO IV PRN; -NORMAL SALINE 250 ML IV PRN
[2018-07-24 09:49] VITALS: BP 132/58
[2018-07-24] MEDS: MAGNESIUM SULFATE 1 GM/D5W 100 ML IV PRN ×2 (10:26→11:27)
== END 2018-07-24 14:00 | disposition home or self-care (01) ==
LOC: II 09:25 → 5TH 09:26 → II 14:00
PROVIDERS: ATTEND Internal Medicine
PROC: 3E0430M Introduction of Antineoplastic, Monoclonal Antibody, into Central Vein, Percutaneous Approach (ICD-10-PCS; principal; 2018-07-24)
PROC: 3E043GC Introduction of Other Therapeutic Substance into Central Vein, Percutaneous Approach (ICD-10-PCS; 2018-07-24)
DX: Z51.11 Encounter for antineoplastic chemotherapy (principal); C76.0 Malignant neoplasm of head, face and neck; E83.42 Hypomagnesemia
CPT/HCPCS: 96413; 96365; 96366; J1200; A9270; J3475; J1642; J9055; 96367; J3490

== ENCOUNTER → 2018-07-24 | Outpatient (CLI) | payer MEDICARE, OTHER ==
--- NOTE | 2018-07-24 09:57 | RADIOLOGY REPORT (SQ) ---
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 Reconstructed coronal and sagittal MPR images reviewed. All images stored on PACS. All CT scanners at this facility use dose modulation, iterative reconstruction, and/or weight based d osing when appropriate to reduce radiation dose to as low as reasonably achievable (ALARA). [facility]: Dose Right [facility]: CareDose [facility]: Dose Right [facility]: Teradose 4D [facility]: [employer] CONTRAST TYPE AND DOSE: See separate report of the same date. RENAL FUNCTION: See separate report. RADIATION DOSE: . LIMITATIONS: None. FINDINGS: SKULL BASE: Intact. MAJOR SALIVARY GLANDS: Left submandibular gland has been surgically resected. LYMPHADENOPATHY: No adenopathy. MUCOSAL MASSES OR ASYMMETRY: Postsurgical changes from resection of left tongue base floor of mouth t umor. No evidence of local recurrence. LARYNX/CORDS: No abnormal findings. VASCULAR STRUCTURES: The major vessels are patent. LUNG APICES: See separate report. BONES: No evidence of metastatic disease. THYROID: Normal size. No masses. PARANASAL SINUSES: Chronic right frontal sinusitis. OTHER: No other significant finding. IMPRESSION: No evidence of local recurrence or metastatic disease. TECHNICAL DOCUMENTATION: JOB ID: [id number] Quality ID # 436: Final reports with documentation of one or more dose reduction techniques (e.g., Au tomated exposure control, adjustment of the mA and/or kV according to patient size, use of iterative reconstruction technique) 2010 [employer]- All Rights Reserved Reading location - IP/workstation name: [email or web address]
--- NOTE | 2018-07-24 10:08 | RADIOLOGY REPORT (SQ) ---
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 Images reviewed with lung, soft tissue and bone windows. Reconstructed coronal and sagittal MPR and MIP images reviewed. All images stored on PACS. All CT scanners at this facility use dose modulation, iterative reconstruction, and/or weight based d osing when appropriate to reduce radiation dose to as low as reasonably achievable (ALARA). [facility]: Dose Right [facility]: CareDose [facility]: Dose Right [facility]: Teradose 4D [facility]: [employer] CONTRAST TYPE AND DOSE: See separate report of the same date. RENAL FUNCTION: See separate report of the same date. RADIATION DOSE: . LIMITATIONS: None. FINDINGS: LUNGS AND PLEURA: New nodules in the middle lobe and right lower lobe, largest in the midd le lobe 16 mm. 11 mm pleural-based nodule left lower lobe. Centrilobular emphysema. No effusions. HILAR AND MEDIASTINAL STRUCTURES: No identified masses or abnormal nodes. HEART AND VASCULAR STRUCTURES: No aneurysm or dissection. No central pulmonary emboli. No pericardi al effusion. HARDWARE: None in the chest. UPPER ABDOMEN: See separate report of the CT of the abdomen. THYROID AND OTHER SOFT TISSUES: No masses. No adenopathy. BONES: No significant finding. OTHER: No other significant finding. IMPRESSION: New and enlarging pulmonary nodules. Consider follow-up PET-CT. TECHNICAL DOCUMENTATION: JOB ID: [id number] Quality ID # [id number]: Final reports with documentation of one or more dose reduction techniques (e.g., Au tomated exposure control, adjustment of the mA and/or kV according to patient size, use of iterative reconstruction technique) 2010 [email or web address]- All Rights Reserved Reading location - IP/workstation name: [email or web address]
--- NOTE | 2018-07-24 11:02 | RADIOLOGY REPORT (SQ) ---
EXAM DESCRIPTION: CT ABD/PELVIS WITH IV ONLY COMPLETED DATE/TIME: 07/24/2018 9:09 am REASON FOR STUDY: R63.4 ABN WEIGHT LOSS C76.0 MALIGNANT NEOPLASM OF HEAD, FACE AND NECK R63.4 ABNO RMAL WEIGHT LOSS COMPARISON: 05/13/2018 TECHNIQUE: CT scan of the abdomen and pelvis performed using helical scanning technique with dynamic intravenous contrast injection. No oral contrast. Images reviewed with lung, soft tissue, and bone windows. Reconstructed coronal and sagittal MPR images reviewed. Delayed images for evaluation of the urinary system also acquired. All images stored on PACS. All CT scanners at this facility use dose modulation, iterative reconstruction, and/or weight based d osing when appropriate to reduce radiation dose to as low as reasonably achievable (ALARA). [facility]: Dose Right [facility]: CareDose [facility]: Dose Right [facility]: Teradose 4D [facility]: [employer] CONTRAST TYPE AND DOSE: contrast/concentration: Isovue 350.00 mg/ml; Total Contrast Delivered: 58.0 ml; Total Saline Delivered: 65.0 ml RENAL FUNCTION: Creatinine 0.8 RADIATION DOSE: . LIMITATIONS: Metal artifact GE junction. FINDINGS: LOWER CHEST: See separate report of the CT of the chest. LIVER: Normal size. No masses. No dilated ducts. SPLEEN: Normal size. No focal lesions. PANCREAS: No masses. No significant calcifications. No adjacent inflammation or peripancreatic fluid collections. Pancreatic duct not dilated. GALLBLADDER: No identified stones by CT criteria. No inflammatory changes to suggest cholecystitis. ADRENAL GLANDS: No significant masses or asymmetry. RIGHT KIDNEY AND URETER: No solid masses. No significant calcifications. No hydronephrosis or hyd roureter. LEFT KIDNEY AND URETER: No solid masses. No significant calcifications. No hydronephrosis or hydr oureter. AORTA AND VESSELS: No aneurysm. RETROPERITONEUM: No retroperitoneal adenopathy, hemorrhage or masses. BOWEL AND PERITONEAL CAVITY: Gastrostomy. No dilated loops. No ascites or free air. Sigmoid divert iculosis. No inflammatory changes. APPENDIX: Not visualized. PELVIS: No mass. No free fluid. Normal bladder. ABDOMINAL WALL: No masses. No hernias. BONES: Nothing acute. OTHER: No other significant finding. IMPRESSION: No evidence of metastatic disease. TECHNICAL DOCUMENTATION: JOB ID: [id number] Quality ID # 436: Final reports with documentation of one or more dose reduction techniques (e.g., Au tomated exposure control, adjustment of the mA and/or kV according to patient size, use of iterative reconstruction technique) 2010 [employer]- All Rights Reserved Reading location - IP/workstation name: [email or web address]
== END ==
LOC: RAD 07:45
PROVIDERS: ATTEND Physician Assistant Medical
DX: C76.0 Malignant neoplasm of head, face and neck (principal); R91.8 Other nonspecific abnormal finding of lung field; J32.1 Chronic frontal sinusitis; R63.4 Abnormal weight loss
CPT/HCPCS: 70491; 71260; 74177; 82565

== ENCOUNTER 2018-09-11 08:52 | Outpatient (CLI) | payer MEDICARE, OTHER ==
[2018-09-11] MEDS ORDERED: NORMAL SALINE 250 ML IV PRN (09:04)
[2018-09-11] MEDS ORDERED: FERUMOXYTOL (NON-ESRD) 510 MG/NS 100 ML IV PRN ×2 (09:04)
[2018-09-11 09:28] VITALS: BP 108/60
== END 2018-09-11 10:00 | disposition home or self-care (01) ==
LOC: II 08:52
PROVIDERS: ATTEND Internal Medicine
PROC: 3E043GC Introduction of Other Therapeutic Substance into Central Vein, Percutaneous Approach (ICD-10-PCS; principal; 2018-09-11)
DX: N18.4 Chronic kidney disease, stage 4 (severe) (principal); D63.1 Anemia in chronic kidney disease
CPT/HCPCS: 96365; Q0138; J7050; J1642; 96374

== ENCOUNTER 2018-09-18 10:18 | Outpatient (CLI) | payer MEDICARE, OTHER ==
[~2018-09-18 10:18] MED LIST changes: -CETUXIMAB IV PRN; -CONTAINER EMPTY IV PRN; -DIPHENHYDRAMINE HCL 50 MG in NORMAL SALINE 50 ML IV PRN; +FERUMOXYTOL (NON-ESRD) 510 MG/NS 100 ML IV PRN; -NORMAL SALINE 250 ML @ KVO IV PRN; +NORMAL SALINE 250 ML IV PRN
[2018-09-18 10:35] VITALS: BP 81/54
== END 2018-09-18 11:46 | disposition home or self-care (01) ==
LOC: 5TH 10:18 → II 10:18
PROVIDERS: ATTEND Internal Medicine
PROC: 3E043GC Introduction of Other Therapeutic Substance into Central Vein, Percutaneous Approach (ICD-10-PCS; principal; 2018-09-18)
DX: N18.4 Chronic kidney disease, stage 4 (severe) (principal); D63.1 Anemia in chronic kidney disease
CPT/HCPCS: 96365; Q0138; J7050; J1642

== ENCOUNTER → 2018-11-04 | Outpatient (CLI) | payer MEDICARE, OTHER ==
--- NOTE | 2018-11-04 11:48 | RADIOLOGY REPORT (SQ) ---
EXAM DESCRIPTION: CT CHEST WITH; CT ABD/PELVIS WITH IV ONLY COMPLETED DATE/TIME: 11/04/2018 10:01 am REASON FOR STUDY: MALIGNANT NEOPLASM OF HEAD, FACE AND NECK (C76.0); MALIGNANT NEOPLASM OF HEAD, FAC E AND NECK (C76.0), ABD PAIN (R10.9) C76.0 MALIGNANT NEOPLASM OF HEAD, FACE AND NECK R10.9 UNSPECIF IED ABDOMINAL PAIN COMPARISON: PET-CT 09/01/2017 CT chest abdomen pelvis 05/13/2018, 07/24/2018 CONTRAST TYPE AND DOSE: contrast/concentration: Isovue 350.00 mg/ml; Total Contrast Delivered: 58.0 ml; Total Saline Delivered: 65.0 ml RENAL FUNCTION: Creatinine 0.7 TECHNIQUE: CT scan of the chest performed using helical scanning technique with dynamic intravenous contrast injection. Images reviewed with lung, soft tissue and bone windows. Reconstructed coronal a nd sagittal MPR images reviewed. All images stored on PACS. CT scan of the abdomen and pelvis performed with intravenous and without oral contrastusing helical s lori technique with dynamic intravenous contrast injection. Images reviewed with lung, soft tissu e and bone windows. Reconstructed coronal and sagittal MPR images reviewed. Delayed images for eval uation of the urinary system also acquired and evaluated. All images stored on PACS. All CT scanners at this facility use dose modulation, iterative reconstruction, and/or weight based d osing when appropriate to reduce radiation dose to as low as reasonably achievable (ALARA). [facility]: Dose Right [facility]: CareDose [facility]: Dose Right [facility]: Teradose 4D [facility]: [employer] RADIATION DOSE: CT Rad equipment meets quality standard of care and radiation dose reduction techniq ues were employed. CTDIvol: 6.4 - 12.3 mGy. DLP: 1198 mGy-cm. . LIMITATIONS: None. FINDINGS: CHEST: LUNGS AND PLEURA: There are several foci of airspace disease in the lungs, new compared to previous e xams. Given history of head and neck malignancy, these could represent foci of aspiration pneumonia. New areas of consolidation are as follows: Posterior right upper lobe at the lung apex axial image 31 Right upper lobe just above the minor fissure axial image 57 Bilateral medial lung bases axial images 73-88 Decrease in size of a left posterior costophrenic sulcus nodule compared to previous exams, currently 6 mm in size on axial image 100 (was 10 mm diameter on 07/24/2018). HILAR AND MEDIASTINAL STRUCTURES: No identified masses or abnormal nodes. HEART AND VASCULAR STRUCTURES: No aneurysm or dissection. No central pulmonary emboli. No pericardi al effusion. HARDWARE: Left-sided permanent central line tip superior vena cava THYROID AND OTHER SOFT TISSUES: No masses. No adenopathy. BONES: No significant finding. OTHER: No other significant finding. ABDOMEN AND PELVIS: LIVER: Normal size. No masses. No dilated ducts. SPLEEN: Normal size. No focal lesions. PANCREAS: No masses. No significant calcifications. No adjacent inflammation or peripancreatic fluid collections. Pancreatic duct not dilated. GALLBLADDER: No identified stones by CT criteria. No inflammatory changes to suggest cholecystitis. ADRENAL GLANDS: No significant masses or asymmetry. RIGHT KIDNEY AND URETER: No solid masses. No significant calcification. No hydronephrosis or hydroure ter. LEFT KIDNEY AND URETER: No solid masses. No significant calcification. No hydronephrosis or hydrouret er. AORTA AND VESSELS: No aneurysm. No dissection. Renal arteries, SMA, celiac without stenosis. RETROPERITONEUM: No retroperitoneal adenopathy, hemorrhage or masses. BOWEL AND PERITONEAL CAVITY: Metallic prosthesis at the GE junction for treatment of reflux. Gastros donya tube tip in the stomach. No masses or inflammatory changes. No free fluid or peritoneal masses. APPENDIX: Normal. ABDOMINAL WALL: No masses. No hernias. PELVIS: No mass or free fluid. Normal bladder. Normal size female pelvic organs BONES: No significant or acute findings. OTHER: No other significant finding. IMPRESSION: Multifocal airspace disease, worrisome for aspiration pneumonia No CT evidence of metastatic disease to the chest abdomen or pelvis TECHNICAL DOCUMENTATION: JOB ID: [id number] Quality ID # 436: Final reports with documentation of one or more dose reduction techniques (e.g., Au tomated exposure control, adjustment of the mA and/or kV according to patient size, use of iterative reconstruction technique) 2010 [employer]- All Rights Reserved Reading location - IP/workstation name: [email or web address]
--- NOTE | 2018-11-04 11:54 | RADIOLOGY REPORT (SQ) ---
EXAM DESCRIPTION: CT SOFT TISSUE NECK WITH COMPLETED DATE/TIME: 11/04/2018 10:01 am REASON FOR STUDY: MALIGNANT NEOPLASM OF HEAD, FACE AND NECK (C76.0) C76.0 MALIGNANT NEOPLASM OF HEA D, FACE AND NECK R10.9 UNSPECIFIED ABDOMINAL PAIN COMPARISON: CT soft tissue neck 05/13/2018, 03/24/2018, 12/20/2017 TECHNIQUE: Post IV contrasted scanning from skull base through lung apices with review of bone, soft tissue and lung windows. Reconstructed coronal and sagittal MPR images reviewed. All images stored on PACS. All CT scanners at this facility use dose modulation, iterative reconstruction, and/or weight based d osing when appropriate to reduce radiation dose to as low as reasonably achievable (ALARA). [facility]: Dose Right [facility]: CareDose [facility]: Dose Right [facility]: Teradose 4D [facility]: [employer] CONTRAST TYPE AND DOSE: 58 mL of IV Omnipaque 350- low osmolar. RENAL FUNCTION: Creatinine 0.7 RADIATION DOSE: 6.5 mGy . LIMITATIONS: None. FINDINGS: SKULL BASE: Intact. MAJOR SALIVARY GLANDS: Parotid glands are unremarkable. Submandibular glands have been resected LYMPHADENOPATHY: No adenopathy. 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 No discrete nodules worrisome for recurrent malignancy. LARYNX/CORDS: No abnormal findings. VASCULAR STRUCTURES: The major vessels are patent. LUNG APICES: Patchy airspace disease right lung apex, question aspiration pneumonia. BONES: Degenerative disc changes at C4-5, C5-6, and C6-7. High-grade bilateral foraminal narrowing a t C5-6 moderate bilateral foraminal narrowing at C6-7. THYROID: Normal size. No masses. PARANASAL SINUSES: Clear. OTHER: No other significant finding. IMPRESSION: No CT evidence of recurrent tumor TECHNICAL DOCUMENTATION: JOB ID: [id number] Quality ID # [id number]: Final reports with documentation of one or more dose reduction techniques (e.g., Au tomated exposure control, adjustment of the mA and/or kV according to patient size, use of iterative reconstruction technique) 2010 [employer]- All Rights Reserved Reading location - IP/workstation name: [email or web address]
== END ==
LOC: RAD 09:12
PROVIDERS: ATTEND Internal Medicine
DX: C76.0 Malignant neoplasm of head, face and neck (principal); R10.9 Unspecified abdominal pain
CPT/HCPCS: 70491; 71260; 74177; 82565

== ENCOUNTER 2019-01-02 12:13 | Emergency (ER) | payer MEDICARE, OTHER ==
--- NOTE | 2019-01-02 12:53 | ER Document Report ---
ED Medical Screen (RME) - General Chief Complaint: Problem with Feeding Tube Stated Complaint: FEEDING TUBE CAME OUT Time Seen by Provider: 01/02/19 12:50 Primary Care Provider: JUDE GARZON MD [Primary Care Provider] - Follow up as needed Mode of Arrival: Ambulatory Information source: Patient Notes: 63-year-old female presented to ED for her feeding tube falling out about 1030 this morning. She states she called the surgery center and they told her to come to the emergency room so they can get put back in as soon as possible. Patient is alert oriented respirations regular nonlabored speaking in full sentences. She does have a tube with her it is a 24 Armenian. 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 She states she does do CBD oil. I have greeted and performed a rapid initial assessment of this patient. A comprehensive ED assessment and evaluation of the patient, analysis of test results and completion of medical decision making process will be conducted by an additional ED providers. TRAVEL OUTSIDE OF THE [place] IN LAST 30 DAYS: No - Related Data Allergies/Adverse Reactions: cephalexin [From Keflex] Allergy (Severe, Verified 03/20/18 09:56) C-Difficile reaction codeine Allergy (Severe, Verified 03/20/18 09:56) migraines moxifloxacin [From Avelox] Allergy (Severe, Verified 03/20/18 09:56) C-Difficile reaction Sulfa (Sulfonamide Antibiotics) Allergy (Severe, Verified 03/20/18 09:56) itching trimethoprim [From Bactrim] Allergy (Severe, Verified 03/20/18 09:56) itching Penicillins Allergy (Unknown, Verified 03/20/18 09:56) unknown Past Medical History - Past Medical History Cardiac Medical History: Denies: Hx Coronary Artery Disease, Hx Heart Attack, Hx Hypertension Pulmonary Medical History: Denies: Hx Asthma, Hx Bronchitis, Hx COPD, Hx Pneumonia Neurological Medical History: Denies: Hx Cerebrovascular Accident, Hx Seizures Renal/ Medical History: Denies: Hx Peritoneal Dialysis Musculoskeltal Medical History: Denies Hx Arthritis Past Surgical History: Denies: Hx Hysterectomy - Immunizations Hx Diphtheria, Pertussis, Tetanus Vaccination: Yes Physical Exam - Vital signs Vitals: Temp Pulse Resp BP Pulse Ox 98.3 F 78 16 101/64 100 01/02/19 12:22 01/02/19 12:22 01/02/19 12:22 01/02/19 12:22 01/02/19 12:22 Course - Vital Signs Vital signs: Temp Pulse Resp BP Pulse Ox 98.3 F 78 16 101/64 100 01/02/19 12:22 01/02/19 12:22 01/02/19 12:22 01/02/19 12:22 01/02/19 12:22 Doctor's Discharge - Discharge Referrals: JUDE GARZON MD [Primary Care Provider] - Follow up as needed
--- NOTE | 2019-01-02 16:07 | ER Document Report ---
ED General - General Chief Complaint: Problem with Feeding Tube Stated Complaint: FEEDING TUBE CAME OUT Time Seen by Provider: 01/02/19 16:01 Primary Care Provider: JUDE GARZON MD [Primary Care Provider] - Follow up as needed Mode of Arrival: Ambulatory Notes: The patient is an 63-year-old female presenting with a chief complaint of dislodged g-tube. Past hx. of CVA and unable to take oral feedings. Tube was spontaneously dislodged this AM. No other c/o. TRAVEL OUTSIDE OF THE [place] IN LAST 30 DAYS: No - Related Data Allergies/Adverse Reactions: cephalexin [From Keflex] Allergy (Severe, Verified 03/20/18 09:56) C-Difficile reaction codeine Allergy (Severe, Verified 03/20/18 09:56) migraines moxifloxacin [From Avelox] Allergy (Severe, Verified 03/20/18 09:56) C-Difficile reaction Sulfa (Sulfonamide Antibiotics) Allergy (Severe, Verified 03/20/18 09:56) itching trimethoprim [From Bactrim] Allergy (Severe, Verified 03/20/18 09:56) itching Penicillins Allergy (Unknown, Verified 03/20/18 09:56) unknown Past Medical History - General Information source: Patient - Social History Smoking Status: Former Smoker Chew tobacco use (# tins/day): No Frequency of alcohol use: None Drug Abuse: None, Other Family History: Reviewed & Not Pertinent Patient has suicidal ideation: No Patient has homicidal ideation: No - Past Medical History Cardiac Medical History: Denies: Hx Coronary Artery Disease, Hx Heart Attack, Hx Hypertension Pulmonary Medical History: Denies: Hx Asthma, Hx Bronchitis, Hx COPD, Hx Pneumonia Neurological Medical History: Denies: Hx Cerebrovascular Accident, Hx Seizures Renal/ Medical History: Denies: Hx Peritoneal Dialysis Musculoskeletal Medical History: Denies Hx Arthritis Past Surgical History: Reports: Hx Abdominal Surgery - G TUBE. Denies: Hx Hysterectomy - Immunizations Hx Diphtheria, Pertussis, Tetanus Vaccination: Yes Hx Pneumococcal Vaccination: 03/04/17 Review of Systems - Review of Systems Notes: Constitutional: Negative for fever. HENT: Negative for sore throat. Eyes: Negative for visual changes. Cardiovascular: Negative for chest pain. Respiratory: Negative for shortness of breath. Gastrointestinal: Negative for abdominal pain, vomiting or diarrhea. Genitourinary: Negative for dysuria. Musculoskeletal: Negative for back pain. Skin: Negative for rash. Neurological: Negative for headaches, weakness or numbness. 10 point ROS negative except as marked above and in HPI. Physical Exam - Vital signs Vitals: Temp Pulse Resp BP Pulse Ox 98.3 F 78 16 101/64 100 01/02/19 12:22 01/02/19 12:22 01/02/19 12:22 01/02/19 12:22 01/02/19 12:22 Notes: GENERAL: Well-developed well-nourished appearing in no acute distress. SKIN: Good turgor no rashes. HEAD: Normocephalic atraumatic. EYES: PERRLA. Conjunctivae and sclerae clear. EARS: CANALS AND TMS CLEAR. NOSE: CLEAR. MOUTH: Moist mucosa. Good dentition. No stridor or edema. No drooling. NECK: Supple. No masses or thyromegaly. No adenopathy. Carotids 2+ without bruits. No JVD. BACK: Symmetrical without tenderness. CHEST: Respirations unlabored. Breath sounds clear and symmetrical. HEART: Regular rhythm. No murmur gallop or rub. ABDOMEN: Soft nontender without masses, organomegaly or rebound. Bowel sounds normally active. No bruits. PEG site LUQ appears clean with tube dislodged. GENITALIA: Deferred. EXTREMITIES: No edema. No calf tenderness. Cap refill less than 1.5 seconds. Dorsalis pedis and posterior tibial pulses 3+ and symmetrical. NEUROLOGICAL: GCS 15. Alert and oriented x3. Speech chronically slurred due to old CVA. Cranial nerves II through XII intact. Sensorimotor and cerebellar normal. Normal tone. - HEENT Eyes: Tears Course - Re-evaluation Re-evalutation: 01/02/19 16:25 Skin of the abdominal wall was prepped with ChloraPrep. 10 cc of lidocaine gel applied to the site topically. 20 Lithuanian G-tube was inserted without difficulty. Balloon was inflated with 6 cc of saline. Water was infused the tube without resistance. Procedure was well-tolerated no complications were appreciated. Patient will resume medications and feedings as per prior routine with tube immediately. Return here for any new or worsening symptoms. Follow-up with primary care provider within the next 1 week. - Vital Signs Vital signs: Temp Pulse Resp BP Pulse Ox 98.3 F 78 16 101/64 100 01/02/19 12:22 01/02/19 12:22 01/02/19 12:22 01/02/19 12:22 01/02/19 12:22 Discharge - Discharge Clinical Impression: G-tube replacement Condition: Good Disposition: HOME, SELF-CARE Referrals: JUDE GARZON MD [Primary Care Provider] - Follow up as needed
[2019-01-02] MEDS ORDERED: LIDOCAINE 2% URO-JET 5 ML KIT MM ONE (16:13)
[2019-01-02 17:04] VITALS: BP 105/92
== END 2019-01-02 17:15 | disposition home or self-care (01) ==
LOC: ER 12:13
DX: Z43.1 Encounter for attention to gastrostomy (principal); I69.328 Other speech and language deficits following cerebral infarction; Z87.891 Personal history of nicotine dependence; Z88.1 Allergy status to other antibiotic agents; Z88.5 Allergy status to narcotic agent; Z88.2 Allergy status to sulfonamides; Z88.0 Allergy status to penicillin
CPT/HCPCS: 99282; 43762; A9270; J1642; J3490

== ENCOUNTER → 2019-01-27 | Outpatient (CLI) | payer MEDICARE, OTHER ==
--- NOTE | 2019-01-27 16:52 | RADIOLOGY REPORT (SQ) ---
EXAM DESCRIPTION: CT SOFT TISSUE NECK WITH COMPLETED DATE/TIME: 01/27/2019 2:49 pm REASON FOR STUDY: MALIGNANT NEOPLASM OF HEAD, FACE AND NECK (C76.0) C76.0 MALIGNANT NEOPLASM OF HEA D, FACE AND NECK R10.9 UNSPECIFIED ABDOMINAL PAIN COMPARISON: 11/04/2018. TECHNIQUE: Post IV contrasted scanning from skull base through lung apices with review of bone, soft tissue and lung windows. Reconstructed coronal and sagittal MPR images reviewed. All images stored on PACS. All CT scanners at this facility use dose modulation, iterative reconstruction, and/or weight based d osing when appropriate to reduce radiation dose to as low as reasonably achievable (ALARA). [facility]: Dose Right [facility]: CareDose [facility]: Dose Right [facility]: Teradose 4D [facility]: [employer] CONTRAST TYPE AND DOSE: See separate report of the same date. RENAL FUNCTION: See separate report. RADIATION DOSE: CT Rad equipment meets quality standard of care and radiation dose reduction techniq ues were employed. CTDIvol: 6.5 - 12.7 mGy. DLP: 1634 mGy-cm. . LIMITATIONS: None. FINDINGS: SKULL BASE: Intact. MAJOR SALIVARY GLANDS: No solid or cystic masses. No inflammatory changes. LYMPHADENOPATHY: No adenopathy. MUCOSAL MASSES OR ASYMMETRY: Atrophy adjacent to surgical clips left floor of mouth. No evidence of recurrent tumor. LARYNX/CORDS: No abnormal findings. VASCULAR STRUCTURES: The major vessels are patent. LUNG APICES: See separate report of the same date. BONES: Intact. THYROID: Normal size. No masses. PARANASAL SINUSES: Clear. OTHER: No other significant finding. IMPRESSION: No evidence of recurrent tumor. TECHNICAL DOCUMENTATION: JOB ID: [id number] Quality ID # 436: Final reports with documentation of one or more dose reduction techniques (e.g., Au tomated exposure control, adjustment of the mA and/or kV according to patient size, use of iterative reconstruction technique) 2010 [employer]- All Rights Reserved Reading location - IP/workstation name: [email or web address]
--- NOTE | 2019-01-28 08:35 | RADIOLOGY REPORT (SQ) ---
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 Images reviewed with lung, soft tissue and bone windows. Reconstructed coronal and sagittal MPR and MIP images reviewed. All images stored on PACS. All CT scanners at this facility use dose modulation, iterative reconstruction, and/or weight based d osing when appropriate to reduce radiation dose to as low as reasonably achievable (ALARA). [facility]: Dose Right [facility]: CareDose [facility]: Dose Right [facility]: Teradose 4D [facility]: [employer] CONTRAST TYPE AND DOSE: See separate report of the same date. RENAL FUNCTION: See separate report. RADIATION DOSE: . LIMITATIONS: None. FINDINGS: LUNGS AND PLEURA: Moderate centrilobular emphysema. Patchy focal areas of airspace diseas e in the right upper lobe are stable. More nodular ground-glass opacity image 64 maximum diameter 10 mm, stable. Subpleural honeycombing in the posterior lower lobes. No new nodules. HILAR AND MEDIASTINAL STRUCTURES: No identified masses or abnormal nodes. HEART AND VASCULAR STRUCTURES: No aneurysm or dissection. No central pulmonary emboli. No pericardi al effusion. HARDWARE: None in the chest. UPPER ABDOMEN: See separate report of the CT of the abdomen. THYROID AND OTHER SOFT TISSUES: No masses. No adenopathy. BONES: Nothing acute. OTHER: No other significant finding. IMPRESSION: Stable areas of focal airspace disease and nodularity in the right upper lobe. No progr ession. TECHNICAL DOCUMENTATION: JOB ID: [id number] Quality ID # 436: Final reports with documentation of one or more dose reduction techniques (e.g., Au tomated exposure control, adjustment of the mA and/or kV according to patient size, use of iterative reconstruction technique) 2010 [employer]- All Rights Reserved Reading location - IP/workstation name: [email or web address]
--- NOTE | 2019-01-28 08:36 | RADIOLOGY REPORT (SQ) ---
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 TECHNIQUE: CT scan of the abdomen and pelvis performed using helical scanning technique with dynamic intravenous contrast injection. No oral contrast. Images reviewed with lung, soft tissue, and bone windows. Reconstructed coronal and sagittal MPR images reviewed. Delayed images for evaluation of the urinary system also acquired. All images stored on PACS. All CT scanners at this facility use dose modulation, iterative reconstruction, and/or weight based d osing when appropriate to reduce radiation dose to as low as reasonably achievable (ALARA). [facility]: Dose Right [facility]: CareDose [facility]: Dose Right [facility]: Teradose 4D [facility]: [employer] CONTRAST TYPE AND DOSE: contrast/concentration: Isovue 350.00 mg/ml; Total Contrast Delivered: 59.0 ml; Total Saline Delivered: 65.0 ml RENAL FUNCTION: GFR > 60. RADIATION DOSE: . LIMITATIONS: Artifact from gastroesophageal metal ring. FINDINGS: LOWER CHEST: See separate report of the CT of the chest. LIVER: Normal size. No masses. No dilated ducts. SPLEEN: Normal size. No focal lesions. PANCREAS: No masses. No significant calcifications. No adjacent inflammation or peripancreatic fluid collections. Pancreatic duct not dilated. GALLBLADDER: No identified stones by CT criteria. No inflammatory changes to suggest cholecystitis. ADRENAL GLANDS: No significant masses or asymmetry. RIGHT KIDNEY AND URETER: No solid masses. No significant calcifications. No hydronephrosis or hyd roureter. LEFT KIDNEY AND URETER: No solid masses. No significant calcifications. No hydronephrosis or hydr oureter. AORTA AND VESSELS: No aneurysm. No dissection. Renal arteries, SMA, celiac without stenosis. RETROPERITONEUM: No retroperitoneal adenopathy, hemorrhage or masses. BOWEL AND PERITONEAL CAVITY: Gastrostomy. No dilated loops. Sigmoid diverticulosis. No ascites, ad enopathy or free air. APPENDIX: Normal. PELVIS: No mass. No free fluid. Normal bladder. ABDOMINAL WALL: No masses. No hernias. BONES: Nothing acute. OTHER: No other significant finding. IMPRESSION: No evidence of metastatic disease. TECHNICAL DOCUMENTATION: JOB ID: [id number] Quality ID # [id number]: Final reports with documentation of one or more dose reduction techniques (e.g., Au tomated exposure control, adjustment of the mA and/or kV according to patient size, use of iterative reconstruction technique) 2010 [employer]- All Rights Reserved Reading location - IP/workstation name: [email or web address]
== END ==
LOC: RAD 13:51
PROVIDERS: ATTEND Physician Assistant Medical
DX: C76.0 Malignant neoplasm of head, face and neck (principal); R10.9 Unspecified abdominal pain
CPT/HCPCS: 70491; 71260; 74177; 82565

== ENCOUNTER → 2019-04-30 | Outpatient (CLI) | payer MEDICARE ==
--- NOTE | 2019-04-30 17:25 | RADIOLOGY REPORT (SQ) ---
EXAM DESCRIPTION: CT CHEST WITH COMPLETED DATE/TIME: 04/30/2019 4:01 pm REASON FOR STUDY: C76.0 MALIGNANT NEOPLASM OF HEAD, FACE AND NECK, R10.9 UNSPECIFIED ABDOMINA C76.0 MALIGNANT NEOPLASM OF HEAD, FACE AND NECK R10.9 UNSPECIFIED ABDOMINAL PAIN COMPARISON: None. TECHNIQUE: CT scan of the chest performed using helical scanning technique with dynamic intravenous contrast injection. Images reviewed with lung, soft tissue and bone windows. Reconstructed coronal and sagittal MPR and MIP images reviewed. All images stored on PACS. All CT scanners at this facility use dose modulation, iterative reconstruction, and/or weight based d osing when appropriate to reduce radiation dose to as low as reasonably achievable (ALARA). [facility]: Dose Right [facility]: CareDose [facility]: Dose Right [facility]: Teradose 4D [facility]: [employer] CONTRAST TYPE AND DOSE: contrast/concentration: Isovue 350.00 mg/ml; Total Contrast Delivered: 80.0 ml; Total Saline Delivered: 35.0 ml RENAL FUNCTION: Creatinine 0.8 RADIATION DOSE: CT Rad equipment meets quality standard of care and radiation dose reduction techniq ues were employed. CTDIvol: 6.6 - 12.6 mGy. DLP: 1615 mGy-cm. . LIMITATIONS: None. FINDINGS: LUNGS AND PLEURA: Centrilobular emphysema with areas of ground-glass opacification in the right upper lobe and right lower lobe and left lower lobe. No pulmonary masses. HILAR AND MEDIASTINAL STRUCTURES: No identified masses or abnormal nodes. HEART AND VASCULAR STRUCTURES: No aneurysm or dissection. No central pulmonary emboli. No pericardi al effusion. HARDWARE: Injection port on the left. UPPER ABDOMEN: No significant findings. Limited exam. THYROID AND OTHER SOFT TISSUES: No masses. No adenopathy. BONES: No significant finding. OTHER: No other significant finding. IMPRESSION: There is no evidence of metastatic disease in the thorax. There is centrilobular emphys nando. There areas of ground-glass opacification in each lung there are nonspecific. 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 May suggest acute atypical infection/inflammation. TECHNICAL DOCUMENTATION: JOB ID: [id number] Quality ID # 436: Final reports with documentation of one or more dose reduction techniques (e.g., Au tomated exposure control, adjustment of the mA and/or kV according to patient size, use of iterative reconstruction technique) 2010 [employer]- All Rights Reserved Reading location - IP/workstation name: [email or web address]
--- NOTE | 2019-04-30 17:34 | RADIOLOGY REPORT (SQ) ---
EXAM DESCRIPTION: CT ABD/PELVIS WITH IV ONLY COMPLETED DATE/TIME: 04/30/2019 4:01 pm REASON FOR STUDY: C76.0 MALIGNANT NEOPLASM OF HEAD, FACE AND NECK, R10.9 UNSPECIFIED ABDOMINA C76.0 MALIGNANT NEOPLASM OF HEAD, FACE AND NECK R10.9 UNSPECIFIED ABDOMINAL PAIN COMPARISON: 01/27/2019 TECHNIQUE: CT scan of the abdomen and pelvis performed using helical scanning technique with dynamic intravenous contrast injection. Oral contrast. Images reviewed with lung, soft tissue, and bone win dows. Reconstructed coronal and sagittal MPR images reviewed. Delayed images for evaluation of the ur inary system also acquired. All images stored on PACS. All CT scanners at this facility use dose modulation, iterative reconstruction, and/or weight based d osing when appropriate to reduce radiation dose to as low as reasonably achievable (ALARA). [facility]: Dose Right [facility]: CareDose [facility]: Dose Right [facility]: Teradose 4D [facility]: [employer] CONTRAST TYPE AND DOSE: 80 mL Omnipaque 350- low osmolar. RENAL FUNCTION: Creatinine 0.8 RADIATION DOSE: . LIMITATIONS: None. FINDINGS: LOWER CHEST: No significant findings. No nodules or infiltrates. LIVER: Normal size. No masses. No dilated ducts. SPLEEN: Normal size. No focal lesions. PANCREAS: No masses. No significant calcifications. No adjacent inflammation or peripancreatic fluid collections. Pancreatic duct not dilated. GALLBLADDER: No identified stones by CT criteria. No inflammatory changes to suggest cholecystitis. ADRENAL GLANDS: No significant masses or asymmetry. RIGHT KIDNEY AND URETER: No solid masses. No significant calcifications. No hydronephrosis or hyd roureter. LEFT KIDNEY AND URETER: No solid masses. No significant calcifications. No hydronephrosis or hydr oureter. AORTA AND VESSELS: No aneurysm. No dissection. Renal arteries, SMA, celiac without stenosis. RETROPERITONEUM: No retroperitoneal adenopathy, hemorrhage or masses. BOWEL AND PERITONEAL CAVITY: Gastrostomy tube. Retained stool in the colon. No obvious bowel mass o r inflammation. APPENDIX: Normal. PELVIS: No mass. No free fluid. Normal bladder. ABDOMINAL WALL: No masses. No hernias. BONES: Lumbar degenerative disc changes. OTHER: No other significant finding. IMPRESSION: There is no evidence of metastatic disease in the abdomen or pelvis. Constipation. Lum bar degenerative disc disease. TECHNICAL DOCUMENTATION: JOB ID: [id number] Quality ID # 436: Final reports with documentation of one or more dose reduction techniques (e.g., Au tomated exposure control, adjustment of the mA and/or kV according to patient size, use of iterative reconstruction technique) 2010 [employer]- All Rights Reserved Reading location - IP/workstation name: [email or web address]
--- NOTE | 2019-05-01 09:20 | RADIOLOGY REPORT (SQ) ---
EXAM DESCRIPTION: CT SOFT TISSUE NECK WITH COMPLETED DATE/TIME: 04/30/2019 4:01 pm REASON FOR STUDY: C76.0 MALIGNANT NEOPLASM OF HEAD, FACE AND NECK, R10.9 UNSPECIFIED ABDOMINA C76.0 MALIGNANT NEOPLASM OF HEAD, FACE AND NECK R10.9 UNSPECIFIED ABDOMINAL PAIN COMPARISON: CT soft tissue neck 03/26/2017, 07/24/2018, 11/04/2018, 01/27/2019 TECHNIQUE: Post IV contrasted scanning from skull base through lung apices with review of bone, soft tissue and lung windows. Reconstructed coronal and sagittal MPR images reviewed. All images stored on PACS. All CT scanners at this facility use dose modulation, iterative reconstruction, and/or weight based d osing when appropriate to reduce radiation dose to as low as reasonably achievable (ALARA). [facility]: Dose Right [facility]: CareDose [facility]: Dose Right [facility]: Teradose 4D [facility]: [employer] CONTRAST TYPE AND DOSE: 80 mL of IV Omnipaque 350- low osmolar. RENAL FUNCTION: GFR > 60. RADIATION DOSE: 7 mGy . LIMITATIONS: None. FINDINGS: The supraglottic larynx is abnormal. The epiglottis is truncated and short. There is a 2 x 1.5 cm soft tissue polypoid mass protruding off the left arytenoid cartilage region. This could r epresent recurrent tumor, and is best shown on axial image 50, sagittal image 44, and coronal image 6 8. Because the supraglottic larynx is abnormal, video assisted speech pathology swallowing evaluation ma y be warranted. The left submandibular triangle and floor of mouth demonstrate extensive postsurgical changes from re moval of primary tumor at the tongue base. Resection of the left submandibular gland, multiple surgi lawrence anisa, fatty atrophy of the left tongue base are all present, similar compared to previous stud ies. No floor of mouth soft tissue masses worrisome for local recurrence. SKULL BASE: Inferior brain parenchyma unremarkable. MAJOR SALIVARY GLANDS: Left submandibular gland resected. Other major salivary glands are intact. LYMPHADENOPATHY: No adenopathy. LARYNX/CORDS: As above VASCULAR STRUCTURES: The major vessels are patent. LUNG APICES: Obstructive lung disease BONES: Degenerative disc changes most pronounced at C4-5, C5-6. THYROID: Normal size. No masses. PARANASAL SINUSES: Clear. OTHER: Left permanent central line tip superior vena cava. IMPRESSION: Polypoid mass along the left arytenoid cartilage region, supraglottic larynx. This coul d represent tumor recurrence. Inflammatory polyp is possible. Small mucosal mass at this location p uts the patient at risk for aspiration. TECHNICAL DOCUMENTATION: JOB ID: [id number] Quality ID # 436: Final reports with documentation of one or more dose reduction techniques (e.g., Au tomated exposure control, adjustment of the mA and/or kV according to patient size, use of iterative reconstruction technique) 2010 [employer]- All Rights Reserved Reading location - IP/workstation name: [email or web address]
== END ==
LOC: RAD 14:57
PROVIDERS: ATTEND Internal Medicine
DX: C76.0 Malignant neoplasm of head, face and neck (principal); K59.00 Constipation, unspecified; R10.9 Unspecified abdominal pain; M51.36 Other intervertebral disc degeneration, lumbar region; J43.2 Centrilobular emphysema
CPT/HCPCS: 70491; 71260; 74177; 82565

== ENCOUNTER → 2019-08-05 | Outpatient (CLI) | payer MEDICARE ==
--- NOTE | 2019-08-05 15:43 | RADIOLOGY REPORT (SQ) ---
EXAM DESCRIPTION: CT CHEST WITH IMAGES COMPLETED DATE/TIME: 08/05/2019 1:44 pm REASON FOR STUDY: C76.0 MALIGNANT NEOPLASM OF HEAD, FACE AND NECK C76.0 MALIGNANT NEOPLASM OF HEAD, FACE AND NECK COMPARISON: 04/30/2019 TECHNIQUE: CT scan of the chest performed using helical scanning technique with dynamic intravenous contrast injection. Images reviewed with lung, soft tissue and bone windows. Reconstructed coronal and sagittal MPR and MIP images reviewed. All images stored on PACS. All CT scanners at this facility use dose modulation, iterative reconstruction, and/or weight based d osing when appropriate to reduce radiation dose to as low as reasonably achievable (ALARA). [facility]: Dose Right [facility]: CareDose [facility]: Dose Right [facility]: Teradose 4D [facility]: [employer] CONTRAST TYPE AND DOSE: contrast/concentration: Isovue 350.00 mg/ml; Total Contrast Delivered: 80.0 ml; Total Saline Delivered: 55.0 ml RENAL FUNCTION: GFR > 60. RADIATION DOSE: . LIMITATIONS: None. FINDINGS: LUNGS AND PLEURA: Stable areas of subsegmental dependent bronchiectasis and associated michel und-glass opacities both lower lobes and in the right upper lobe. No progression. No effusions. HILAR AND MEDIASTINAL STRUCTURES: No identified masses or abnormal nodes. HEART AND VASCULAR STRUCTURES: No aneurysm or dissection. No central pulmonary emboli. No pericardi al effusion. HARDWARE: None in the chest. UPPER ABDOMEN: Gastrostomy. Limited exam. THYROID AND OTHER SOFT TISSUES: No masses. No adenopathy. BONES: Nothing acute. OTHER: Left-sided port. IMPRESSION: Emphysema and chronic interstitial changes. No significant change from 04/30/2019. TECHNICAL DOCUMENTATION: JOB ID: [id number] Quality ID # 436: Final reports with documentation of one or more dose reduction techniques (e.g., Au tomated exposure control, adjustment of the mA and/or kV according to patient size, use of iterative reconstruction technique) 2010 [employer]- All Rights Reserved Reading location - IP/workstation name: [email or web address]
--- NOTE | 2019-08-06 08:37 | RADIOLOGY REPORT (SQ) ---
EXAM DESCRIPTION: CT SOFT TISSUE NECK WITH IMAGES COMPLETED DATE/TIME: 08/05/2019 1:42 pm REASON FOR STUDY: C76.0 MALIGNANT NEOPLASM OF HEAD, FACE AND NECK C76.0 MALIGNANT NEOPLASM OF HEAD, FACE AND NECK COMPARISON: 04/30/2019 TECHNIQUE: Post IV contrasted scanning from skull base through lung apices with review of bone, soft tissue and lung windows. Reconstructed coronal and sagittal MPR images reviewed. All images stored on PACS. All CT scanners at this facility use dose modulation, iterative reconstruction, and/or weight based d osing when appropriate to reduce radiation dose to as low as reasonably achievable (ALARA). [facility]: Dose Right [facility]: CareDose [facility]: Dose Right [facility]: Teradose 4D [facility]: [employer] CONTRAST TYPE AND DOSE: See separate report of the same date. RENAL FUNCTION: See separate report of the same date. RADIATION DOSE: . LIMITATIONS: None. FINDINGS: SKULL BASE: Intact. MAJOR SALIVARY GLANDS: Prior resection of the left submandibular gland. LYMPHADENOPATHY: No adenopathy. MUCOSAL MASSES OR ASYMMETRY: Postsurgical changes from tumor removal left tongue base. No evidence o f local recurrence. LARYNX/CORDS: No abnormal findings. VASCULAR STRUCTURES: The major vessels are patent. LUNG APICES: See separate report of the same date. BONES: Intact. THYROID: Normal size. No masses. PARANASAL SINUSES: Clear. OTHER: No other significant finding. IMPRESSION: Resolution of previously described mass left arytenoid cartilage supraglottic larynx. N o evidence of local recurrence left tongue base mass. TECHNICAL DOCUMENTATION: JOB ID: [id number] Quality ID # 436: Final reports with documentation of one or more dose reduction techniques (e.g., Au tomated exposure control, adjustment of the mA and/or kV according to patient size, use of iterative reconstruction technique) 2010 [employer]- All Rights Reserved Reading location - IP/workstation name: [email or web address]
== END ==
LOC: RAD 13:16
PROVIDERS: ATTEND Internal Medicine
DX: C76.0 Malignant neoplasm of head, face and neck (principal)
CPT/HCPCS: 70491; 71260; 82565

== ENCOUNTER → 2019-08-14 | Outpatient (CLI) | payer MEDICARE ==
[~2019-08-14] MED LIST changes: +DIPHENHYDRAMINE HCL 50 MG/ML VIAL IV PRN; +FENTANYL CITRATE INJ/PF 100 MCG/2 ML AMPUL IV PRN; -FERUMOXYTOL (NON-ESRD) 510 MG/NS 100 ML IV PRN; -NORMAL SALINE 250 ML IV PRN; +PROMETHAZINE HCL INJ 25 MG/1 ML VIAL IV PRN
== END ==
LOC: OD 10:30 → EDSTATUS 08-19 10:30
PROVIDERS: ATTEND Surgery
DX: Z03.818 Encounter for observation for suspected exposure to other biological agents ruled out (principal)
CPT/HCPCS: U0003; C9803; 87635

== ENCOUNTER 2019-10-21 12:00 | Emergency (ER) | payer MEDICARE ==
[2019-10-21 12:05] VITALS: BP 124/86
--- NOTE | 2019-10-21 12:24 | ER Document Report ---
ED Medical Screen (RME) - General Stated Complaint: FEEDING TUBE ISSUES Time Seen by Provider: 10/21/19 12:19 Primary Care Provider: JUDE GARZON MD [Primary Care Provider] - Follow up as needed Mode of Arrival: Ambulatory Information source: Patient Notes: HPI; 64-year-old female past medical history significant for throat cancer with a feeding tube. Patient states the feeding tube started leaking at the port yesterday she tried gluing it without success. No other complaints. PE: Alert and oriented x3. Mild distress noted. Lungs: Clear to auscultation without rales, rhonchi, wheezes. Heart: Regular rate rhythm without murmurs, rubs, gallops. Unable to do full assessment of feeding tube in triage. I have greeted and performed a rapid initial assessment of this patient. A comprehensive ED assessment and evaluation of the patient, analysis of test results and completion of the medical decision making process will be conducted by additional ED providers. I have specifically instructed the patient or family members with the patient to immediately return to any nursing staff should anything change in the patient's condition or with their chief complaint. TRAVEL OUTSIDE OF THE [place] IN LAST 30 DAYS: No - Related Data Allergies/Adverse Reactions: cephalexin [From Keflex] Allergy (Severe, Verified 10/21/19 12:14) C-Difficile reaction codeine Allergy (Severe, Verified 10/21/19 12:14) migraines moxifloxacin [From Avelox] Allergy (Severe, Verified 10/21/19 12:14) C-Difficile reaction Sulfa (Sulfonamide Antibiotics) Allergy (Severe, Verified 10/21/19 12:14) itching trimethoprim [From Bactrim] Allergy (Severe, Verified 10/21/19 12:14) itching Penicillins Allergy (Unknown, Verified 10/21/19 12:14) unknown Past Medical History - Past Medical History Cardiac Medical History: Denies: Hx Coronary Artery Disease, Hx Heart Attack, Hx Hypertension Pulmonary Medical History: Denies: Hx Asthma, Hx Bronchitis, Hx COPD, Hx Pneumonia Neurological Medical History: Denies: Hx Cerebrovascular Accident, Hx Seizures Renal/ Medical History: Denies: Hx Peritoneal Dialysis Musculoskeltal Medical History: Denies Hx Arthritis Past Surgical History: Reports: Hx Abdominal Surgery - G TUBE. Denies: Hx Hysterectomy - Immunizations Hx Diphtheria, Pertussis, Tetanus Vaccination: Yes Physical Exam - Vital signs Vitals: Temp Pulse Resp BP Pulse Ox 97.9 F 87 15 124/86 H 99 10/21/19 12:04 10/21/19 12:04 10/21/19 12:04 10/21/19 12:04 10/21/19 12:04 Course - Vital Signs Vital signs: Temp Pulse Resp BP Pulse Ox 97.9 F 87 15 124/86 H 99 10/21/19 12:04 10/21/19 12:04 10/21/19 12:04 10/21/19 12:04 10/21/19 12:04 Doctor's Discharge - Discharge Referrals: JUDE GARZON MD [Primary Care Provider] - Follow up as needed
== END 2019-10-21 15:40 | disposition left against medical advice (07) ==
LOC: ER 12:00
DX: T85.598A Other mechanical complication of other gastrointestinal prosthetic devices, implants and grafts, initial encounter (principal); Y83.3 Surgical operation with formation of external stoma as the cause of abnormal reaction of the patient, or of later complication, without mention of misadventure at the time of the procedure; Z88.1 Allergy status to other antibiotic agents; Z88.6 Allergy status to analgesic agent; Z88.5 Allergy status to narcotic agent; Z88.2 Allergy status to sulfonamides; Z88.0 Allergy status to penicillin; Z53.20 Procedure and treatment not carried out because of patient's decision for unspecified reasons
CPT/HCPCS: 99281

== ENCOUNTER → 2019-10-28 | Outpatient (CLI) | payer MEDICARE ==
--- NOTE | 2019-10-28 13:51 | RADIOLOGY REPORT (SQ) ---
EXAM DESCRIPTION: CT CHEST WITH IMAGES COMPLETED DATE/TIME: 10/28/2019 9:35 am REASON FOR STUDY: (C76.0)MALIGNANT NEOPLASM OF HEAD, FACE AND NECK C76.0 MALIGNANT NEOPLASM OF HEAD , FACE AND NECK COMPARISON: CT chest dated 08/05/2019 TECHNIQUE: CT scan of the chest performed using helical scanning technique with dynamic intravenous contrast injection. Images reviewed with lung, soft tissue and bone windows. Reconstructed coronal and sagittal MPR and MIP images reviewed. All images stored on PACS. All CT scanners at this facility use dose modulation, iterative reconstruction, and/or weight based d osing when appropriate to reduce radiation dose to as low as reasonably achievable (ALARA). [facility]: Dose Right [facility]: CareDose [facility]: Dose Right [facility]: Teradose 4D [facility]: [employer] CONTRAST TYPE AND DOSE: contrast/concentration: Isovue 350.00 mmol/ml; Total Contrast Delivered: 80. 0 ml; Total Saline Delivered: 55.0 ml RENAL FUNCTION: Creatinine 0.8 RADIATION DOSE: . LIMITATIONS: None. FINDINGS: LUNGS AND PLEURA: There chronic bilateral pleural and parenchymal changes. Stable ground- glass opacities in the lung bases. No discrete pulmonary nodules. No new consolidation. No pneumot horax. HILAR AND MEDIASTINAL STRUCTURES: No identified masses or abnormal nodes. HEART AND VASCULAR STRUCTURES: No aneurysm or dissection. No central pulmonary emboli. No pericardi al effusion. HARDWARE: [id number] remains in place. UPPER ABDOMEN: No significant findings. Limited exam. THYROID AND OTHER SOFT TISSUES: No masses. No adenopathy. BONES: No significant finding. OTHER: No other significant finding. IMPRESSION: Chronic but stable bilateral pleural and parenchymal changes. No evidence of metastatic disease. TECHNICAL DOCUMENTATION: JOB ID: [id number] Quality ID # 436: Final reports with documentation of one or more dose reduction techniques (e.g., Au tomated exposure control, adjustment of the mA and/or kV according to patient size, use of iterative reconstruction technique) 2010 [employer]- All Rights Reserved Reading location - IP/workstation name: [email or web address]
--- NOTE | 2019-10-29 09:30 | RADIOLOGY REPORT (SQ) ---
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 Reconstructed coronal and sagittal MPR images reviewed. All images stored on PACS. All CT scanners at this facility use dose modulation, iterative reconstruction, and/or weight based d osing when appropriate to reduce radiation dose to as low as reasonably achievable (ALARA). [facility]: Dose Right [facility]: CareDose [facility]: Dose Right [facility]: Teradose 4D [facility]: Picsean CONTRAST TYPE AND DOSE: 80 mL of IV Omnipaque 350- low osmolar. RENAL FUNCTION: Creatinine 0.8 RADIATION DOSE: CT Rad equipment meets quality standard of care and radiation dose reduction techniq ues were employed. CTDIvol: 7.8 - 11.1 mGy. DLP: 688 mGy-cm. . LIMITATIONS: None. FINDINGS: SKULL BASE: Intact. MAJOR SALIVARY GLANDS: Fatty atrophy right parotid gland. Left parotid gland unremarkable. Diffuse atrophy right submandibular gland. Surgical absence of the left submandibular gland. LYMPHADENOPATHY: No adenopathy. 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 Surgical clips right submandibular triangle region. No new mucosal masses. LARYNX/CORDS: Stable chronic mucosal thickening in the leftward supraglottic larynx, unchanged compar ed to multiple previous studies VASCULAR STRUCTURES: The major vessels are patent. No carotid bifurcation stenosis LUNG APICES: Chronic fibrosis, stable BONES: Degenerative disc changes at C4-5 C5-6 and C6-7. THYROID: Normal size. No masses. PARANASAL SINUSES: Clear. OTHER: Left-sided permanent central line tip superior vena cava IMPRESSION: Stable post therapeutic changes in the neck soft tissues. TECHNICAL DOCUMENTATION: JOB ID: [id number] Quality ID # [id number]: Final reports with documentation of one or more dose reduction techniques (e.g., Au tomated exposure control, adjustment of the mA and/or kV according to patient size, use of iterative reconstruction technique) 2010 [email or web address]- All Rights Reserved Reading location - IP/workstation name: [email or web address]
== END ==
LOC: RAD 08:45
PROVIDERS: ATTEND Internal Medicine
DX: C76.0 Malignant neoplasm of head, face and neck (principal); J84.10 Pulmonary fibrosis, unspecified; M50.323 Other cervical disc degeneration at C6-C7 level
CPT/HCPCS: 70491; 71260; 82565